=== PATIENT | female | born 1955 | race African-American/Black ===

== ENCOUNTER 2016-09-08 17:27 | Observation (INO) | payer MEDICARE, OTHER ==
--- NOTE | 2016-09-08 17:48 | ED ---
General Adult HPI - General Chief complaint: Chest Pain Stated complaint: chest pain Time Seen by Provider: 09/08/16 17:39 Source: patient, RN notes reviewed, old records reviewed Mode of arrival: wheelchair Limitations: no limitations - History of Present Illness Initial comments: This is a 61-year-old female ER for evaluation. Patient presents here for evaluation of chest pain. Patient has history of diabetes and thyroid disorder , prior history of chest pain. Patient recently going to stressful grief reaction secondary to Dr. canas. Patient denies shortness of breath, no cough or congestion, no diaphoresis no fevers. No recent cardiac testing, no modifying factors or pain. Patient states she was scheduled for an outpatient stress test secondary to test chest pain last week which she missed secondary to anxiety over having the tests. - Related Data Home Medications Medication Instructions Recorded Confirmed Albuterol Inhaler [Ventolin Hfa 1 - 2 puff INHALATION RT-Q6H PRN 09/08/16 Inhaler] Levothyroxine Sodium [Synthroid] 200 mcg PO DAILY 09/08/16 09/08/16 glyBURIDE [Diabeta] 5 mg PO BID 09/08/16 09/08/16 metFORMIN HCL 1,000 mg PO BID 09/08/16 09/08/16 Allergies Allergy/AdvReac Type Severity Reaction Status Date / Time Penicillins Allergy Nausea & Verified 09/08/16 18:40 Vomiting Review of Systems ROS Statement: Those systems with pertinent positive or pertinent negative responses have been documented in the HPI. ROS Other: All systems not noted in ROS Statement are negative. Past Medical History Past Medical History: Diabetes Mellitus, Thyroid Disorder Additional Past Medical History / Comment(s): prolonged QT interval History of Any Multi-Drug Resistant Organisms: None Reported Past Psychological History: No Psychological Hx Reported Smoking Status: Current every day smoker Past Alcohol Use History: None Reported Past Drug Use History: None Reported General Exam Limitations: no limitations General appearance: alert, in no apparent distress, anxious, obese Head exam: Present: atraumatic, normocephalic, normal inspection Eye exam: Present: normal appearance, PERRL, EOMI. Absent: scleral icterus, conjunctival injection, periorbital swelling ENT exam: Present: normal exam, mucous membranes moist Neck exam: Present: normal inspection. Absent: tenderness, meningismus, lymphadenopathy Respiratory exam: Present: normal lung sounds bilaterally. Absent: respiratory distress, wheezes, rales, rhonchi, stridor Cardiovascular Exam: Present: regular rate, normal rhythm, normal heart sounds. Absent: systolic murmur, diastolic murmur, rubs, gallop, clicks GI/Abdominal exam: Present: soft, normal bowel sounds. Absent: distended, tenderness, guarding, rebound, rigid Extremities exam: Present: normal inspection, full ROM, normal capillary refill. Absent: tenderness, pedal edema, joint swelling, calf tenderness Back exam: Present: normal inspection Neurological exam: Present: alert, oriented X3, CN II-XII intact Psychiatric exam: Present: normal affect, normal mood Skin exam: Present: warm, dry, intact, normal color. Absent: rash Course Vital Signs 09/08/16 09/08/16 09/08/16 17:33 18:03 18:10 Temperature 98.2 F Pulse Rate 87 86 Pulse Rate [ 94 Bilateral Radial] Respiratory 20 14 Rate Blood Pressure 137/85 142/73 O2 Sat by Pulse 97 100 Oximetry 09/08/16 18:57 Temperature 97.9 F Pulse Rate 82 Pulse Rate [ Bilateral Radial] Respiratory 15 Rate Blood Pressure 132/69 O2 Sat by Pulse 100 Oximetry - Reevaluation(s) Reevaluation #1: 09/08/16 19:29 Patient resting comfortably at this time EKG Findings - EKG Comments: EKG Findings:: EKG shows normal sinus rhythm rate of 93, TN 186 QRS 90, QTc 474 Medical Decision Making - Medical Decision Making 61 female ER for evaluation of chest pain, patient having episodic chest pain, history of hypertension, patient be admitted for cardiac observation initial EKG and troponin are negative, will place patient on anticoagulation of cardiac evaluation, patient requesting Dr. Narvaez - Lab Data Result diagrams: 09/08/16 18:12 09/08/16 18:12 Lab Results 09/08/16 09/08/16 09/08/16 Range/Units 18:12 18:12 18:12 WBC 8.2 (3.8-10.6) k/uL RBC 4.34 (3.80-5.40) m/uL Hgb 11.9 (11.4-16.0) gm/dL Hct 37.5 (34.0-46.0) % MCV 86.4 (80.0-100.0) fL MCH 27.4 (25.0-35.0) pg MCHC 31.8 (31.0-37.0) g/dL RDW 15.6 H (11.5-15.5) % Plt Count 351 (150-450) k/uL Neutrophils % 49 % Lymphocytes % 39 % Monocytes % 5 % Eosinophils % 4 % Basophils % 0 % Neutrophils # 4.0 (1.3-7.7) k/uL Lymphocytes # 3.2 (1.0-4.8) k/uL Monocytes # 0.4 (0-1.0) k/uL Eosinophils # 0.3 (0-0.7) k/uL Basophils # 0.0 (0-0.2) k/uL PT (9.0-12.0) sec INR (<1.1) APTT (22.0-30.0) sec Sodium 137 (137-145) mmol/L Potassium 4.4 (3.5-5.1) mmol/L Chloride 102 (98-107) mmol/L Carbon Dioxide 28 (22-30) mmol/L Anion Gap 7 mmol/L BUN 11 (7-17) mg/dL Creatinine 0.89 (0.52-1.04) mg/dL Est GFR (MDRD) Af Amer >60 (>60 ml/min/1.73 sqM) Est GFR (MDRD) Non-Af >60 (>60 ml/min/1.73 sqM) Glucose 152 H (74-99) mg/dL Calcium 8.6 (8.4-10.2) mg/dL Magnesium 2.1 (1.6-2.3) mg/dL Total Bilirubin 0.3 (0.2-1.3) mg/dL AST 42 H (14-36) U/L ALT 43 (9-52) U/L Alkaline Phosphatase 125 (38-126) U/L Total Creatine Kinase 88 (30-135) U/L CK-MB (CK-2) 0.6 (0.0-2.4) ng/mL CK-MB (CK-2) Rel Index 0.7 Troponin I <0.012 (0.000-0.034) ng/mL Total Protein 7.0 (6.3-8.2) g/dL Albumin 3.5 (3.5-5.0) g/dL Lipase 110 (23-300) U/L 09/08/16 Range/Units 18:12 WBC (3.8-10.6) k/uL RBC (3.80-5.40) m/uL Hgb (11.4-16.0) gm/dL Hct (34.0-46.0) % MCV (80.0-100.0) fL MCH (25.0-35.0) pg MCHC (31.0-37.0) g/dL RDW (11.5-15.5) % Plt Count (150-450) k/uL Neutrophils % % Lymphocytes % % Monocytes % % Eosinophils % % Basophils % % Neutrophils # (1.3-7.7) k/uL Lymphocytes # (1.0-4.8) k/uL Monocytes # (0-1.0) k/uL Eosinophils # (0-0.7) k/uL Basophils # (0-0.2) k/uL PT 10.0 (9.0-12.0) sec INR 1.0 (<1.1) APTT 25.0 (22.0-30.0) sec Sodium (137-145) mmol/L Potassium (3.5-5.1) mmol/L Chloride (98-107) mmol/L Carbon Dioxide (22-30) mmol/L Anion Gap mmol/L BUN (7-17) mg/dL Creatinine (0.52-1.04) mg/dL Est GFR (MDRD) Af Amer (>60 ml/min/1.73 sqM) Est GFR (MDRD) Non-Af (>60 ml/min/1.73 sqM) Glucose (74-99) mg/dL Calcium (8.4-10.2) mg/dL Magnesium (1.6-2.3) mg/dL Total Bilirubin (0.2-1.3) mg/dL AST (14-36) U/L ALT (9-52) U/L Alkaline Phosphatase (38-126) U/L Total Creatine Kinase (30-135) U/L CK-MB (CK-2) (0.0-2.4) ng/mL CK-MB (CK-2) Rel Index Troponin I (0.000-0.034) ng/mL Total Protein (6.3-8.2) g/dL Albumin (3.5-5.0) g/dL Lipase (23-300) U/L - Radiology Data Radiology results: report reviewed (Chest x-ray negative for acute disease), image reviewed Critical Care Time Critical Care Time: Yes Total Critical Care Time: 31 Disposition Clinical Impression: Chest pain Disposition: ADMITTED IP TO THIS [facility] Condition: Undetermined Instructions: Chest Pain (ED) Referrals: Amaya Driver MD [Primary Care Provider] - 1-2 days
[2016-09-08 18:20] LABS: Basophils % (A) 0 %; CH 27.7; CHCM 32.2; Eosinophils # (A) 0.3 k/uL (0-0.7); Eosinophils % (A) 4 %; HCT 37.5 % (34.0-46.0); HDW 2.65; HGB 11.9 gm/dL (11.4-16.0); Luc # (Auto) 0.22; Luc % (Auto) 3; Lymphocytes # (A) 3.2 k/uL (1.0-4.8); Lymphocytes % (A) 39 %; MCH 27.4 pg (25.0-35.0); MCHC 31.8 g/dL (31.0-37.0); MCV 86.4 fL (80.0-100.0); Monocytes # (A) 0.4 k/uL (0-1.0); Monocytes % (A) 5 %; Neutrophils % (A) 49 %; RBC 4.34 m/uL (3.80-5.40); RDW 15.6 % (11.5-15.5); WBC 8.2 k/uL (3.8-10.6); WBC (Perox) 8.16
[2016-09-08 18:36] LABS: ALT 43 U/L (9-52); AST 42 U/L (14-36); Alkaline Phosphatase 125 U/L (38-126); Anion Gap 7 mmol/L; Blood Urea Nitrogen 11 mg/dL (7-17); Calcium 8.6 mg/dL (8.4-10.2); Carbon Dioxide 28 mmol/L (22-30); Chloride 102 mmol/L (98-107); Glucose 152 mg/dL (74-99); Magnesium 2.1 mg/dL (1.6-2.3); Non-African American GFR(MDRD) >60 (>60 ml/min/1.73 sqM); Potassium 4.4 mmol/L (3.5-5.1); Sodium 137 mmol/L (137-145); Total Bilirubin 0.3 mg/dL (0.2-1.3)
[2016-09-08 18:40] LABS: Creatine Kinase 88 U/L (30-135)
[2016-09-08 18:53] LABS: Creatine Kinase MB 0.6 ng/mL (0.0-2.4); Troponin I <0.012 ng/mL (0.000-0.034)
[2016-09-08] MEDS ORDERED: HEPARIN SODIUM,PORCINE 5,000 UNIT/ML 1 ML VIAL IV ONE (19:26)
[2016-09-08] MEDS ORDERED: HEPARIN SODIUM,PORCINE 5,000 UNIT/ML 1 ML VIAL IV PRN (19:26)
[2016-09-08] MEDS ORDERED: ASPIRIN 81 MG CHEW PO STA (19:26)
[2016-09-08] MEDS ORDERED: NITROGLYCERIN SL TABS 0.4 MG TAB SUBLINGUAL PRN (19:26)
[2016-09-08] MEDS ORDERED: HEPARIN SODIUM,PORCINE/D5W PMX 25,000 UNIT in DEXTROSE/WATER 1 500ML.BAG IV SCH (19:30)
[2016-09-08] MEDS ORDERED: SODIUM CHLORIDE 0.9% 1,000 ML IV SCH (19:30)
--- NOTE | 2016-09-08 19:34 | XR ---
EXAMINATION TYPE: XR chest 2V DATE OF EXAM: 09/08/2016 6:25 PM COMPARISON: 08/15/2013 HISTORY: Pain TECHNIQUE: Frontal and lateral views of the chest are obtained. FINDINGS: There is moderate-marked obscuration of the pulmonary vasculature bilaterally due to a fin e reticular pattern of increased density throughout the lung parenchyma. The pattern is consistent wi th advanced interstitial phase pulmonary edema. The cardiac silhouette size is top normal. No berkley lung consolidation. No abnormal gas collections. Bones and soft tissues are unremarkable. IMPRESSION: MODERATE MARKED INTERSTITIAL PHASE PULMONARY EDEMA.
[2016-09-08 21:25] LABS: Glucose,Whole Blood 128 mg/dL (75-99)
[2016-09-08] MEDS: metFORMIN 500 MG TAB PO SCH (22:14)
[2016-09-08] MEDS: NICOTINE 21MG/24HR PATCH TRANSDERM SCH (22:14)
[2016-09-09 01:47] LABS: Creatine Kinase 73 U/L (30-135)
[2016-09-09 02:00] LABS: Creatine Kinase MB 0.5 ng/mL (0.0-2.4); Troponin I <0.012 ng/mL (0.000-0.034)
[2016-09-09 05:50] LABS: Glucose,Whole Blood 106 mg/dL (75-99)
[2016-09-09] MEDS ORDERED: LEVOTHYROXINE 100 MCG TAB PO SCH (06:30)
[2016-09-09] MEDS: glipiZIDE 10 MG TAB PO SCH ×2 (06:34→17:07)
[2016-09-09 06:39] LABS: Mean Platelet Volume 6.8
[2016-09-09 06:57] LABS: Cholesterol 136 mg/dL (<200); HDL Cholesterol 33 mg/dL (40-60); Triglycerides 103 mg/dL (<150)
[2016-09-09 06:58] LABS: Creatine Kinase 77 U/L (30-135)
[2016-09-09 07:12] LABS: Creatine Kinase MB 0.4 ng/mL (0.0-2.4); Troponin I <0.012 ng/mL (0.000-0.034)
--- NOTE | 2016-09-09 08:36 | P.CRDCN ---
History of Present Illness Consult date: 09/09/16 Requesting physician: Gilberto Kunz Consult reason: chest pain Chief complaint: Chest pain History of present illness: This is a 61-year-old -[place] female with known history of diabetes, hypothyroidism, asthma, nicotine dependence, patient smokes up to 3 packs of cigarettes per day, obesity, she presents to the hospital with symptoms of chest pain. She describes the pain as a sharp stabbing pain in the left side of her chest, she states she also feels pain up the left side of her neck into her jaw, and down her left arm. When she gets these episodes of pain she states they only last seconds and then dissipate. She denies any chest pressure or heaviness, no shortness of breath or palpitations. He states that when she gets the pain feels like a jittery feeling in her chest. Patient does follow with Dr. Soriano in the office, states that she has a family history of long QT syndrome. She recently lost her sister and has been under a lot of stress. EKG on arrival here showed a normal sinus rhythm with incomplete right bundle branch block pattern, no acute changes noted. Repeat EKG performed this morning shows a normal sinus rhythm. Chest x-ray reveals moderate marked interstitial pulmonary edema. Laboratory data was reviewed, CBC normal, potassium 4.4, BUN 11, creatinine 0.8. Troponins have been negative 3. Magnesium level II.1. Cholesterol 136, HDL 33, LDL 82, triglycerides 103. According to the patient, she states that she has had a stress test several years ago, was recently scheduled for one however missed it because of her sister's recent . The pressure on arrival here 136/8097% on room air, heart rate in the 80s. At the time of my examination this morning, patient denies any chest pain Past Medical History Past Medical History: Chest Pain / Angina, Diabetes Mellitus, Thyroid Disorder Additional Past Medical History / Comment(s): prolonged QT interval History of Any Multi-Drug Resistant Organisms: None Reported Additional Past Surgical History / Comment(s): none Past Anesthesia/Blood Transfusion Reactions: No Reported Reaction Past Psychological History: No Psychological Hx Reported Smoking Status: Current every day smoker Past Alcohol Use History: None Reported Past Drug Use History: None Reported - Past Family History Sister(s) Family Medical History: Myocardial Infarction (MD) Father Family Medical History: Cancer Additional Family Medical History / Comment(s): father of lung cancer Mother Family Medical History: Cancer Additional Family Medical History / Comment(s): mother from breast cancer Daughter(s) Additional Family Medical History / Comment(s): daughter from SIDS Medications and Allergies Home Medications Medication Instructions Recorded Confirmed Type Albuterol Inhaler [Ventolin Hfa 1 - 2 puff INHALATION RT-Q6H PRN 09/08/16 History Inhaler] Levothyroxine Sodium [Synthroid] 200 mcg PO DAILY 09/08/16 09/08/16 History glyBURIDE [Diabeta] 5 mg PO BID 09/08/16 09/08/16 History metFORMIN HCL 1,000 mg PO BID 09/08/16 09/08/16 History Allergies Allergy/AdvReac Type Severity Reaction Status Date / Time Penicillins Allergy Nausea & Verified 09/08/16 21:15 Vomiting Physical Exam Vitals: Vital Signs Temp Pulse Pulse Resp BP BP Pulse Ox 09/09/16 04:00 85 17 94/55 97 09/09/16 00:00 98.1 F 86 16 112/64 96 09/08/16 20:46 97.8 F 80 16 133/84 99 09/08/16 19:49 97.5 F L 75 16 130/77 100 Intake and Output 09/08/16 09/09/16 09/09/16 22:59 06:59 14:59 Intake Total 410 Output Total 400 Balance 10 Intake: IV 240 Heparin Sodium,Porcine/ 120 D5w Pmx 25,000 unit In Dextrose/Water 1 500ml. bag @ 5.959 UNITS/KG/HR 20 mls/hr IV .Q24H [facility] Rx #:[id number] Sodium Chloride 0.9% 1, 120 000 ml @ 20 mls/hr IV . Q24H [facility] Rx#:[id number] Intake, IV Titration 170 Amount Heparin Sodium,Porcine/ 170 D5w Pmx 25,000 unit In Dextrose/Water 1 500ml. bag @ 5.959 UNITS/KG/HR 20 mls/hr IV .Q24H [facility] Rx #:[id number] Output: Urine 400 Other: Voiding Method Toilet # Voids 1 1 # Bowel Movements 1 Weight 160.6 kg PHYSICAL EXAMINATION: HEENT: Head is atraumatic, normocephalic. Pupils equal, round. Neck is supple. There is no elevated jugular venous pressure. HEART EXAMINATION: Heart S1, S2 normal. No murmur or gallop heard. CHEST EXAMINATION: Lungs are clear to auscultation and precussion. No chest wall tenderness is noted on palpation or with deep breathing. ABDOMEN: Soft, obese, nontender. Bowel sounds are heard. No organomegaly noted. EXTREMITIES: 2+ peripheral pulses with trace evidence of peripheral edema and no calf tenderness noted. NEUROLOGIC patient is awake, alert and oriented -3. . Results 09/09/16 06:24 09/08/16 18:12 Cardiac Enzymes 09/09/16 09/09/16 Range/Units 01:10 06:24 CK-MB (CK-2) 0.5 0.4 (0.0-2.4) ng/mL Troponin I <0.012 <0.012 (0.000-0.034) ng/mL Coagulation 09/09/16 Range/Units 01:10 APTT 26.3 (22.0-30.0) sec Lipids 09/09/16 Range/Units 06:24 Triglycerides 103 (<150) mg/dL Cholesterol 136 (<200) mg/dL HDL Cholesterol 33 L (40-60) mg/dL CBC 09/09/16 Range/Units 06:24 Plt Count 321 (150-450) k/uL Current Medications Generic Name Dose Route Start Last Admin Trade Name Freq PRN Reason Stop Dose Admin Aspirin 325 mg 09/09/16 09:00 Aspirin PO DAILY [facility] Atorvastatin Calcium 80 mg 09/09/16 09:00 Lipitor PO DAILY [facility] Glipizide 10 mg 09/09/16 07:30 09/09/16 06:34 Glucotrol PO 10 mg AC-BID [facility] Administration Heparin Sodium (Porcine) 0 unit 09/08/16 19:26 09/09/16 04:16 Heparin IV 4,000 unit Q6HR PRN Administration Low PTT Protocol Heparin Sodium/Dextrose 25,000 500 mls @ 20 mls/hr 09/08/16 19:30 09/09/16 04 :16 unit/ IV Solution IV 8.95 units/kg/hr .Q24H [facility] 30.04 mls/hr Protocol Titration 5.959 UNITS/KG/HR Sodium Chloride 1,000 mls @ 20 mls/hr 09/08/16 19:30 09/08/16 19:42 Saline 0.9% IV 20 mls/hr .Q24H [facility] Administration Levothyroxine Sodium 200 mcg 09/09/16 06:30 09/09/16 06:34 Synthroid PO 200 mcg 0630 [facility] Administration Metformin HCl 1,000 mg 09/08/16 22:00 09/08/16 22:14 Glucophage PO 1,000 mg BID [facility] Administration Nicotine 1 patch 09/08/16 22:00 09/08/16 22:14 Habitrol 21mg/24hr Patch TRANSDERM 1 patch DAILY [facility] Administration Nitroglycerin 0.4 mg 09/08/16 19:26 Nitrostat SUBLINGUAL Q5M PRN Chest Pain Intake and Output 09/08/16 09/09/16 09/09/16 22:59 06:59 14:59 Intake Total 410 Output Total 400 Balance 10 Intake: IV 240 Heparin Sodium,Porcine/ 120 D5w Pmx 25,000 unit In Dextrose/Water 1 500ml. bag @ 5.959 UNITS/KG/HR 20 mls/hr IV .Q24H [facility] Rx #:[id number] Sodium Chloride 0.9% 1, 120 000 ml @ 20 mls/hr IV . Q24H [facility] Rx#:[id number] Intake, IV Titration 170 Amount Heparin Sodium,Porcine/ 170 D5w Pmx 25,000 unit In Dextrose/Water 1 500ml. bag @ 5.959 UNITS/KG/HR 20 mls/hr IV .Q24H [facility] Rx #:[id number] Output: Urine 400 Other: Voiding Method Toilet # Voids 1 1 # Bowel Movements 1 Weight 160.6 kg 09/09/16 06:24 EKG Interpretations (text) EKG shows normal sinus rhythm with no acute changes. Assessment and Plan Plan: Assessment and plan #1 chest pain, atypical in nature. Troponins negative 3. EKG shows normal sinus rhythm with no acute changes. #2 diabetes #3 hypothyroidism #4 family history of long QT syndrome #5 nicotine dependence, patient smokes 3 packs of cigarettes per day #6 asthma Plan We will obtain an echocardiogram with Doppler study. We will also discontinue the patient's heparin, decrease aspirin to 81 mg daily. Patient is been advised to undergo stress testing to rule out any underlying coronary artery disease . Further recommendations will follow. DNP note has been reviewed, I agree with a documented findings and plan of care. Patient was seen and examined.
[2016-09-09] MEDS ORDERED: ASPIRIN 81 MG CHEW PO SCH (09:00)
[2016-09-09] MEDS ORDERED: ATORVASTATIN 80 MG TAB PO SCH (09:00)
[2016-09-09] MEDS ORDERED: ASPIRIN 325 MG TAB PO SCH (09:00)
[2016-09-09] MEDS ORDERED: DOBUTamine DRIP for NUC MED 500 MG in DEXTROSE/WATER 1 250ML.BAG IV ONE (09:24)
--- NOTE | 2016-09-09 09:28 | P.PN ---
Progress Note - Text This is an addendum to the dictated cardiology consultation. The patient has a history of diabetes, chronic tobacco use, smokes 3 packs a day and a family history of long QT syndrome who presents with symptoms of chest discomfort. Her discomfort is not exertional pattern, random. She has no prior history of documented obstructive CAD and her prior stress test was normal. Patient is not very active physically. She denies any dizziness or palpitation or syncope. Her cardiac enzymes are unremarkable and her EKG is normal. Her chest discomfort has atypical features for CAD. I will stop her heparin and proceed with a dobutamine stress echocardiogram, if there is no evidence of inducible ischemia then no further cardiac workup will be needed. The importance of smoking cessation was discussed with the patient. Thank you for this consult we will follow with you.
[2016-09-09] MEDS ORDERED: ATORVASTATIN 20 MG TAB PO SCH (09:30)
[2016-09-09 10:34] VITALS: RESP 20
--- NOTE | 2016-09-09 12:40 | ECHOF ---
Referral Reason:chest pain MEASUREMENTS -------- HEIGHT: 177.8 cm WEIGHT: 160.6 kg BP: 94/55 RVIDd: 3.1 cm (< 3.3) IVSd: 1.3 cm (0.6 - 1.1) LVIDd: 4.1 cm (3.9 - 5.3) LVPWd: 1.3 cm (0.6 - 1.1) IVSs: 2.1 cm LVIDs: 3.0 cm LVPWs: 1.5 cm LA Diam: 3.0 cm (2.7 - 3.8) LAESV Index (A-L): 20.01 ml/m Ao Diam: 2.7 cm (2.0 - 3.7) AV Cusp: 1.9 cm (1.5 - 2.6) LA Diam: 3.3 cm (2.7 - 3.8) MV EXCURSION: 11.453 mm (> 18.000) MV EF SLOPE: 46 mm/s (70 - 150) EPSS: 0.6 cm MV E Juan: 0.62 m/s MV DecT: 188 ms MV A Juan: 0.75 m/s MV E/A Ratio: 0.83 RAP: 5.00 mmHg RVSP: 21.41 mmHg FINDINGS -------- Sinus rhythm with extra systolic beats. This was a technically adequate study. There is mild concentric left ventricular hypertrophy. Overall left ventricular systolic function is normal with, an EF between 55 - 60 %. The right ventricle is normal in size. Normal LA size by volume 22+/-6 ml/m2. The right atrium is normal in size. The aortic valve is trileaflet and appears structurally normal. Mild mitral annular calcification present. There is trace mitral regurgitation. Trace tricuspid regurgitation present. Right ventricular systolic pressure is normal at < 35 mmHg. Trace/mild (physiologic) pulmonic regurgitation. The aortic root size is normal. The inferior vena cava is mildly dilated. Echo free space may represent effusion or a pericardial fat pad. CONCLUSIONS -------- 1. Sinus rhythm with extra systolic beats. 2. There is trace mitral regurgitation. 3. Trace tricuspid regurgitation present. 4. Right ventricular systolic pressure is normal at < 35 mmHg. 5. Trace/mild (physiologic) pulmonic regurgitation. 6. The aortic root size is normal. 7. The inferior vena cava is mildly dilated. 8. Echo free space may represent effusion or a pericardial fat pad. 9. This was a technically adequate study. 10. There is mild concentric left ventricular hypertrophy. 11. Overall left ventricular systolic function is normal with, an EF between 55 - 60 %. 12. The right ventricle is normal in size. 13. Normal LA size by volume 22+/-6 ml/m2. 14. The right atrium is normal in size. 15. The aortic valve is trileaflet and appears structurally normal. 16. Mild mitral annular calcification present. ASSISTANT DIRECTOR OF [employer]ID[employer] LIFE: Georges Gu RDCS
[2016-09-09 12:47] LABS: Glucose,Whole Blood 74 mg/dL (75-99)
[2016-09-09] MEDS: NICOTINE 21MG/24HR PATCH TRANSDERM SCH (12:51)
[2016-09-09] MEDS: metFORMIN 500 MG TAB PO SCH ×2 (12:52→17:07)
[2016-09-09] MEDS ORDERED: ENOXAPARIN 40 MG/0.4 ML SYRINGE SQ SCH (13:15)
--- NOTE | 2016-09-09 14:44 | ECHOS ---
DATE OF SERVICE: 09/09/2016 AGE: 61Y SEX: F HT: 70" WT: 354 lbs. Protocol Trey: Others: Dobutamine Stress Echo Stage: 3 Dur. of Exercise: 9:00 *Heart Rate Blood Pressure *Rest: 93 Rest: 139/75 * *Max. Achieved: 146 Maximum BP: 178/65 85% PMHR: 137 100% PMHR: 161 *METS: - INDICATIONS: Chest pain. MEDICATIONS: Metformin, levothyroxine, glyburide, albuterol. Patient was given dobutamine infusion according to the ( ) protocol. Peak heart rate of 146 was achieved. Maximum blood pressure of 178/65 mmHg was noted. Resting EKG shows normal sinus rhythm with normal WI interval and QRS duration and normal ST-T waves. Intermittent PVCs and PACs were noted. No ST-segment depression suggestive of ischemia is noted. The baseline echocardiographic images reveal a normal left ventricular chamber size with normal left ventricular systolic function. At the peak dose of dobutamine infusion, normal increase in the wall thickness and contractility is noted. FINAL IMPRESSION: This dobutamine stress echocardiographic study is negative for stress-induced ischemia. Occasional premature atrial contractions and premature ventricular contractions were noted. EKG portion of the stress test is not suggestive of ischemia.
[2016-09-09 15:34] VITALS: BP 95/55; PULSE 72; TEMP 97.1
[2016-09-09 17:10] LABS: Glucose,Whole Blood 75 mg/dL (75-99)
--- NOTE | 2016-09-09 17:24 | HP ---
DATE OF ADMISSION: 09/08/2016 PRESENTING COMPLAINT: Chest pain. HISTORY OF PRESENTING COMPLAINT: This is a 61-year-old patient of Dr. Megan Driver whose chronic stable conditions include diabetes mellitus, type 2, hypothyroid and smoking. Patient around 11:00 developed left-sided chest pain going up the neck and arm, coming on and off; felt a little bit short of breath. No perspiration. No dizziness. No tiredness. Patient was admitted with unstable angina. No prior cardiac history. Patient smokes about 3 packs a day. REVIEW OF SYSTEMS: CONSTITUTIONAL: None. HEENT: None. RESPIRATORY: Occasional wheezing. CARDIOVASCULAR: As above. GASTROINTESTINAL: None. GENITOURINARY: None. MUSCULOSKELETAL: None. DERMATOLOGICAL: None. HEMATOLOGICAL: None. LYMPHATIC: None. PSYCHIATRY: None. NEUROLOGICAL: None. PAST MEDICAL HISTORY: 1. Diabetes mellitus, type 2. 2. Hypothyroid. PAST SURGICAL HISTORY: None. SOCIAL HISTORY: Lives with her children. Retired ( ). Smokes 3 packs a day. No alcohol. FAMILY HISTORY: Father of lung cancer. Also heart attack in the family. HOME MEDICATIONS: 1. Metformin 1000 mg b.i.d. 2. Glyburide 5 mg b.i.d. 3. Synthroid 200 mcg a day. 4. Ventolin 1 to 2 puffs q.6 p.r.n. ALLERGIES: PENICILLIN causing nausea, vomiting. On examination, temperature 98.2, pulse 87, respiration 20, blood pressure 137/85, pulse ox 97% on room air. GENERAL APPEARANCE: Obese; BMI of 50.8. Sitting up on the edge of the bed. EYES: Pupils equal. Conjunctivae normal. HEENT: Oral cavity normal. NECK: JVD not raised. Mass not palpable. RESPIRATORY: Effort normal. Lungs are clear. CARDIOVASCULAR: First and second sounds normal. No edema. ABDOMEN: Soft, nontender. Liver and spleen not palpable. LYMPHATIC: No lymph node palpable in neck or axillae. PSYCHIATRY: Alert and oriented x3. Mood and affect normal. NEUROLOGICAL: Pupils equal. Cranial nerves grossly intact. Power and sensation grossly intact. INVESTIGATIONS: White count 8.2, hemoglobin 11.9. Potassium 4.4. BUN and creatinine are normal. Troponins x3 negative. EKG: Normal sinus rhythm. ASSESSMENT: 1. Possible unstable angina. Patient's risk factors include smoking, diabetes, obesity. 2. Diabetes mellitus, type 2. 3. Morbid obesity; BMI of 50.8. 4. Chronic nicotine dependence. Patient is a cigarette smoker. 5. Emphysema in a smoker. PLAN: Patient's home medications are resumed. Patient was put on aspirin. Will probably need a stress test. Patient was advised against smoking.
--- NOTE | 2016-09-10 09:00 | DS ---
DATE OF ADMISSION: 09/08/2016 DATE OF DISCHARGE: 09/09/2016 FINAL DIAGNOSES: 1. Anterior chest wall pain, could be musculoskeletal. 2. Diabetes mellitus type 2 on oral hypoglycemic. 3. Morbid obesity, body mass index 50.8. 4. Chronic nicotine dependence. Patient is a smoker. 5. Emphysema in a smoker. HOSPITAL COURSE: This patient presented with chest pain. Troponins are negative. Underwent a stress test, dobutamine stress echocardiogram, that was negative. A 2-D echocardiogram was unremarkable. Patient's LDL was 92. Patient was counseled against smoking. ON EXAM: LUNGS: Decreased breath sounds. CARDIOVASCULAR: First and second sounds normal. DISCHARGE MEDICATIONS: 1. Ventolin HFA 1 to 2 puffs q.6 p.r.n. 2. Synthroid 200 mcg p.o. daily. 3. Glyburide 5 mg p.o. b.i.d. 4. Metformin 1000 mg p.o. b.i.d. 5. Aspirin 81 mg daily. 6. Lipitor 20 mg p.o. daily. 7. Nicotine patch as expected. Follow up with Dr. Driver in 3 days. CONSULTATION: Dr. Sullivan.
== END 2016-09-09 17:34 | disposition home or self-care (01) ==
LOC: EC 17:27 → 6SEL 19:26
PROVIDERS: ADMIT Hospitalist; ATTEND Hospitalist
DX: R07.89 Other chest pain (principal); M79.602 Pain in left arm; M54.2 Cervicalgia; E11.9 Type 2 diabetes mellitus without complications; E66.01 Morbid (severe) obesity due to excess calories; Z68.43 Body mass index [BMI] 50.0-59.9, adult; J45.909 Unspecified asthma, uncomplicated; J43.9 Emphysema, unspecified; E03.9 Hypothyroidism, unspecified; F17.210 Nicotine dependence, cigarettes, uncomplicated; Z79.899 Other long term (current) drug therapy; Z79.84 Long term (current) use of oral hypoglycemic drugs; Z88.0 Allergy status to penicillin; Z82.49 Family history of ischemic heart disease and other diseases of the circulatory system; Z80.1 Family history of malignant neoplasm of trachea, bronchus and lung
CPT/HCPCS: 96366 ×2; 96376 ×2; 93005 ×2; 96365; 99291; 36415; 93017; 93306; 80061; 80053; 82550 ×2; 82553 ×2; 83690; 83735; 84484 ×2; 85025; 85049; 85610; 85730 ×2; 71020; G0378 ×2; C8928; S4990 ×2; J1250; J1644 ×3; Q9957; 93350

== ENCOUNTER 2016-09-27 12:53 | Day surgery (SDC) | payer MEDICARE, OTHER ==
[~2016-09-27 12:53] MED LIST: SODIUM CHLORIDE 0.9% 1,000 ML IV SCH
[2016-09-27 13:46] LABS: Glucose,Whole Blood 76 mg/dL (75-99)
[2016-09-27] MEDS ORDERED: METOPROLOL TARTRATE 5 MG/5 ML VIAL IVP ONE ×2 (14:15→16:08)
[2016-09-27] MEDS ORDERED: MIDAZOLAM 2 MG/2 ML VIAL ONE (14:15)
[2016-09-27] MEDS ORDERED: PROPOFOL 10 MG/ML 20 ML VIAL IV ONE (14:15)
[2016-09-27] MEDS ORDERED: ALBUTEROL INHALER 60 PUFF/8 GM INHALER INHALATION ONE (14:15)
[2016-09-27] MEDS ORDERED: hydrALAZINE HCL 20 MG/ML 1 ML VIAL ONE (14:15)
[2016-09-27] MEDS ORDERED: diphenhydrAMINE 50 MG/ML 1 ML VIAL ONE (14:15)
[2016-09-27] MEDS ORDERED: IV FLUID CONTINUATION 300 ML IV ONE (14:15)
[2016-09-27] MEDS ORDERED: fentaNYL (PF) 50 MCG/ML 2 ML AMP ONE (14:15)
[2016-09-27] MEDS ORDERED: ePHEDrine 50 MG/ML 1 ML AMP ONE (14:15)
[2016-09-27] MEDS ORDERED: HYDROmorphone (PF) 1 MG/ML ONE (14:15)
[2016-09-27] MEDS ORDERED: GLYCOPYRROLATE 0.2 MG/ML 2 ML VIAL ONE (14:15)
[2016-09-27] MEDS ORDERED: ISOPROTERENOL 250 MCG/1.25 ML SYR IV ONE (14:15)
[2016-09-27] MEDS ORDERED: LIDOCAINE 2% INJ 20 MG/ML SQ ONE (15:02)
[2016-09-27] MEDS: EPINEPHrine 2 MG in DEXTROSE 5% IN WATER 250 ML IV SCH ×4 (16:25→16:26)
[2016-09-27] MEDS ORDERED: SODIUM CHLORIDE 0.9% 1,000 ML IV ONE (16:54)
[2016-09-27 17:41] LABS: Glucose,Whole Blood 83 mg/dL (75-99)
--- NOTE | 2016-09-27 17:41 | P.PCN ---
Preoperative Diagnosis: Epinephrine stress test report At the end of the EP study, and epinephrine stress test was performed per protocol starting at 0.025 g per KG per minute and increasing the dose in a stepwise fashion up to 0.2 g per KG per minute Baseline QT interval was variable and ranged from 368-400 ms At baseline, there was no post-pause prolongation of the QT interval There was a steady and progressive decline in the absolute QT interval as the dose of epinephrine was increased to the maximum dose The post was absolute QT interval also showed shortening There was a subtle notching seen intermittently No evidence for any T-wave alternans PVCs nonsustained ventricular tachycardia or polymorphic VT Impression Shortening of the QT interval during epinephrine stress testing
[2016-09-27] MEDS ORDERED: NICOTINE 21MG/24HR PATCH TRANSDERM PRN (17:42)
[2016-09-27] MEDS ORDERED: ACETAMINOPHEN IV (For NPO) 1,000 MG/100 ML VIAL IVPB ONE (17:56)
[2016-09-27] MEDS ORDERED: ACETAMINOPHEN IV (For NPO) 1,000 MG in EMPTY BAG 1 BAG IVPB ONE (18:00)
[2016-09-27 18:33] VITALS: BMI 49.6
--- NOTE | 2016-09-27 18:41 | CE ---
DATE OF SERVICE: Ne Saenz is a 61-year-old female who has recurrent palpitations and has a family history of sudden in multiple female members and ( ) was very likely of long QT syndrome. She underwent a diagnostic EP study followed by epinephrine stress testing. The epinephrine stress test has been dictated separately. Patient was brought to the EP lab in a fasting state. Written informed consent was obtained prior to the procedure. The right groin was prepped and draped as per protocol and 3 venous sheaths were placed in the right femoral vein. Via this, three diagnostic catheters were placed in the right (high right atrial catheter, His bundle catheter and RV catheter). Sinus cycle length 716 ms, IN interval 172 ms, QRS 108 ms, QT 453 ms, AH interval 100 ms, HV interval 43 ms. Sinus node recovery times at 600, five hundred and 400 ms were 901, 956 and 988 ms. AV node Wenckebach block 360 ms, VA Wenckebach block 550 ms, atrial ERP 600/280 ms, ventricular ERP 500/240 ms. Isuprel was then started and AV node Wenckebach block improved to 280 ms. No delta waves noted. VA block greater than 500 ms. Atrial extrastimulation was performed and atrial ERP was 400/210 ms, ventricular ERP 400/200 ms and 400/210/less than 190 ms. Isuprel was stopped. The patient's blood pressure was elevated on Isuprel and therefore IV hydralazine was given. Once her blood pressure normalized, epinephrine stress test was performed. This is being dictated separately. IMPRESSION: Diagnostic EP study revealing frequent premature ventricular contractions with right bundle branch block morphology (aberrancy) without induction of any Supraventricular tachycardia and absence of slow pathway and absence of VA conduction absence of any delta waves with atrial pacing. No atrial fibrillation induced. No ventricular arrhythmias induced.
--- NOTE | 2016-09-27 18:44 | LTR ---
September 27, 2016 RE: Ne Saenz Dear Dr. Driver: I had the pleasure of seeing Lis Saenz in electrophysiology follow-up. As you know many years back I had detected a mildly prolonged QT interval on Ne. Subsequently at that time I knew that her three month old baby had in her sleep many, many years back. Subsequently I also found that two of her nieces had suddenly upon hearing a loud startling sound. More recently her sister in her sleep. Lis has been complaining of palpitations and therefore I brought her in for an EP study. I could only find PACs with a right bundle branch block aberrancy but no inducible arrhythmias. Because of a very strong consideration for a long QT syndrome, particularly with a history of startling sounds, which triggered the sudden an epinephrine stress test was performed to look specifically for long QT 1 or long QT 2. The epinephrine stress test showed shortening of the QT interval, which is a normal response. The abnormal response is prolongation of the QT interval and we did not demonstrate this which is a good sign for Ne. However, she has multiple other family members and some of whom are symptomatic with recurrent dizzy spells and I have advised the family that those individuals should seek medical attention specifically geared towards evaluation for long QT syndrome. In addition, genetic autopsy on her sister's tissue should also be performed. I am starting Ne on Nadolol 20 mg p.o. daily and I will follow her QT interval in the future. Thank you for entrusting me in the care of your patient, Warm regards, Sincerely, EN CHRIS MD
[2016-09-27] MEDS: LACTATED RINGERS 1,000 ML IV SCH (19:38)
[2016-09-27] MEDS ORDERED: ONDANSETRON 4 MG/2 ML VIAL IVP PRN (19:43)
[2016-09-27] MEDS ORDERED: HYDROcodone/APAP 5-325MG 1 EACH TAB PO PRN (20:47)
[2016-09-27] MEDS: ACETAMINOPHEN TAB 325 MG TAB PO PRN (20:51)
[2016-09-27 21:22] LABS: Glucose,Whole Blood 170 mg/dL (75-99)
[2016-09-27] MEDS: metFORMIN 500 MG TAB PO SCH (21:32)
[2016-09-27] MEDS: glipiZIDE 10 MG TAB PO SCH (21:32)
[2016-09-27] MEDS: NADOLOL 20 MG TAB PO SCH (21:32)
[2016-09-27] MEDS ORDERED: ALBUTEROL NEBULIZED 2.5 MG/3 ML INHALATION PRN (23:25)
[2016-09-27] MEDS: ALBUTEROL NEBULIZED 2.5 MG/3 ML INHALATION PRN (23:59)
[2016-09-28] MEDS: ACETAMINOPHEN TAB 325 MG TAB PO PRN (05:08)
[2016-09-28] MEDS: LACTATED RINGERS 1,000 ML IV SCH (05:09)
[2016-09-28] MEDS ORDERED: LEVOTHYROXINE 100 MCG TAB PO SCH (06:30)
[2016-09-28 06:34] LABS: Glucose,Whole Blood 78 mg/dL (75-99)
[2016-09-28] MEDS: ALBUTEROL NEBULIZED 2.5 MG/3 ML INHALATION PRN (07:45)
[2016-09-28 08:20] LABS: Hemoglobin A1C 6.1 % (4.2-6.1)
[2016-09-28] MEDS: glipiZIDE 10 MG TAB PO SCH (08:54)
[2016-09-28] MEDS: metFORMIN 500 MG TAB PO SCH (08:55)
[2016-09-28] MEDS: NADOLOL 20 MG TAB PO SCH (08:55)
[2016-09-28 12:04] LABS: Glucose,Whole Blood 56 mg/dL (75-99)
[2016-09-28 12:46] LABS: Glucose,Whole Blood 73 mg/dL (75-99)
[2016-09-28 16:06] VITALS: BP 121/70; PULSE 73; RESP 16; TEMP 97.5
--- NOTE | 2016-09-28 19:39 | P.DS ---
Providers Attending physician: Min Soriano Primary care physician: Am[facility] Course: Patient is doing well from a cardiac standpoint. She is lying comfortably in bed at groin is healed well. She's been walking around in the hallways. No arrhythmias noted on telemetry. She tolerated nadolol 20 mg by mouth daily well. She is no chest discomfort no dizziness lightheadedness. She does have numbness on the thigh on the right side and this could be related to irritation of the femoral nerve. She also has diabetes On examination Blood pressure is 121/70 mmHg pulse rate in the 70s she's afebrile Heart sounds are normal normal S1 normal S2 Breath sounds are normal no rhonchi no crackles Groins of healed well no hematoma Peripheral pulses were palpable Impression Family history of sudden consistent with long QT syndrome History of mildly prolonged QT interval in the past Epinephrine stress test showed progressive shortening of the QT interval on epinephrine History of adult onset diabetes management PCP Morbid obesity BMI 49 Hypertension Suggest Nadolol 20 mg by mouth daily Workup of other family members for long QT syndrome Patient Condition at Discharge: Stable Plan - Discharge Summary Discharge Medication List RX: Albuterol Inhaler [Ventolin Hfa Inhaler] 1 - 2 puff INHALATION RT-Q6H PRN [History] RX: Levothyroxine Sodium [Synthroid] 200 mcg PO DAILY 09/08/16 [History] RX: glyBURIDE [Diabeta] 5 mg PO BID 09/08/16 [History] RX: metFORMIN HCL 1,000 mg PO BID 09/08/16 [History] RX: Nicotine 21Mg/24Hr Patch [Habitrol] 1 patch TRANSDERM DAILY PRN 09/24/16 [ History] Follow up Appointment(s)/Referral(s): Min Soriano MD [STAFF PHYSICIAN] - 12/08/16 4:30 pm (One week groin check appointment with Sandra Pulido. at 10:00 am. has been scheduled.) Patient Instructions/Handouts: Palpitations (GEN), Cardiac Ablation (DC) Discharge Disposition: HOME SELF-CARE
== END 2016-09-28 17:09 | disposition home or self-care (01) ==
LOC: CATHEP 12:53 → 3OBS 16:55 → CATHEP 09-28 17:09
PROVIDERS: ATTEND Internal Medicine Clinical Cardiac Electrophysiology
DX: I49.3 Ventricular premature depolarization (principal); I45.10 Unspecified right bundle-branch block; I10 Essential (primary) hypertension; R20.0 Anesthesia of skin; F17.210 Nicotine dependence, cigarettes, uncomplicated; E66.01 Morbid (severe) obesity due to excess calories; Z68.42 Body mass index [BMI] 45.0-49.9, adult; Z82.41 Family history of sudden cardiac death; E11.9 Type 2 diabetes mellitus without complications; Z79.84 Long term (current) use of oral hypoglycemic drugs; Z79.899 Other long term (current) drug therapy; Z88.0 Allergy status to penicillin
CPT/HCPCS: 94640 ×2; 93623; 93620; 83036; C1894; C1769 ×2; C1730 ×2; S4990; J2001; J0171; J2250; J0360; J1200; J2405; J3010; J1170; J0131; J2704

== ENCOUNTER 2017-04-19 11:39 | Emergency (ER) | payer MEDICARE, OTHER ==
[2017-04-19] MEDS ORDERED: IPRATROPIUM-ALBUTEROL 3 ML NEB INHALATION STA (13:13)
[2017-04-19] MEDS ORDERED: SODIUM CHLORIDE 0.9% 1,000 ML IV STA (13:13)
[2017-04-19] MEDS ORDERED: BENZONATATE 100 MG CAP PO STA (13:13)
[2017-04-19] MEDS ORDERED: PROMETHAZ-COD 6.25-10 MG/5 ML 5 ML CUP PO STA (13:16)
--- NOTE | 2017-04-19 13:16 | ED ---
General Adult HPI - General Chief complaint: Shortness of Breath Stated complaint: Difficulty Breathing Time Seen by Provider: 04/19/17 13:00 Source: patient, family, RN notes reviewed Mode of arrival: ambulatory - History of Present Illness Initial comments: 61-year-old female presents to the emergency department with a chief complaint of cough and shortness of breath. Patient does admit to history of asthma. Patient states that she has had this cough and shortness of breath for the last month or so. Patient states she's been on antibiotics steroids breathing she was at home and she just continues to have this cough. Patient denies any chest pain. She denies any shortness of breath. She states it felt irritated due to the continued cough. Patient was concerned because her symptoms just are not getting better so she thought that she should be seen. Patient denies any recent fever, chills, shortness of breath, chest pain, back pain, abdominal pain, nausea vomiting, numbness or tingling, dysuria or hematuria, constipation or diarrhea, headaches or visual changes, or any other current symptoms. - Related Data Home Medications Medication Instructions Recorded Confirmed Levothyroxine Sodium [Synthroid] 200 mcg PO DAILY 09/08/16 04/19/17 glyBURIDE [Diabeta] 5 mg PO BID 09/08/16 04/19/17 metFORMIN HCL 1,000 mg PO BID 09/08/16 04/19/17 Albuterol Sulfate [Proair Hfa] 2 puff INHALATION RT-Q6H PRN 04/19/17 04/19/17 Atorvastatin [Lipitor] 20 mg PO HS 04/19/17 04/19/17 Beclomethasone Dip 80 Mcg/Puff 1 puff INHALATION RT-BID 04/19/17 04/19/17 [Qvar 80 mcg] Ibuprofen [Ibuprofen] 800 mg PO TID PRN 04/19/17 04/19/17 Lisinopril [Zestril] 5 mg PO DAILY 04/19/17 04/19/17 Nadolol [Corgard] 20 mg PO DAILY 04/19/17 04/19/17 amLODIPine [Norvasc] 10 mg PO DAILY 04/19/17 04/19/17 Previous Rx's Medication Instructions Recorded Albuterol Nebulized [Ventolin 2.5 mg INHALATION Q4H #20 nebu 04/19/17 Nebulized] Promethaz-Cod 6.25-10 mg/5 ml 5 ml PO Q4HR PRN #50 ml 04/19/17 [Phenergan with Codeine] predniSONE 50 mg PO DAILY #5 tab 04/19/17 Allergies Allergy/AdvReac Type Severity Reaction Status Date / Time Latex, Natural Rubber Allergy Rash/Hives Verified 04/19/17 13:43 lactose AdvReac Diarrhea Verified 04/19/17 13:43 Penicillins AdvReac Nausea & Verified 04/19/17 13:43 Vomiting Review of Systems ROS Statement: Those systems with pertinent positive or pertinent negative responses have been documented in the HPI. ROS Other: All systems not noted in ROS Statement are negative. Past Medical History Past Medical History: Chest Pain / Angina, Diabetes Mellitus, Thyroid Disorder Additional Past Medical History / Comment(s): see DR Soriano H & P History of Any Multi-Drug Resistant Organisms: None Reported Additional Past Surgical History / Comment(s): Past Anesthesia/Blood Transfusion Reactions: Previous Problems w/ Anesthesia Additional Past Anesthesia/Blood Transfusion Reaction / Comment(s): difficulty waking up Past Psychological History: No Psychological Hx Reported Smoking Status: Current every day smoker Past Alcohol Use History: None Reported Past Drug Use History: None Reported - Past Family History Sister(s) Family Medical History: Myocardial Infarction ([place]) Father Family Medical History: Cancer Additional Family Medical History / Comment(s): father of lung cancer Mother Family Medical History: Cancer Additional Family Medical History / Comment(s): mother from breast cancer Daughter(s) Additional Family Medical History / Comment(s): daughter from SIDS General Exam - General Exam Comments Initial Comments: General: The patient is awake and alert, in no distress, and does not appear acutely ill. Eye: Pupils are equal, round and reactive to light, extra-ocular movements are intact; there is normal conjunctiva bilaterally. No signs of icterus. Ears, nose, mouth and throat: There are moist mucous membranes. Neck: The neck is supple, there is no tenderness. Cardiovascular: There is a regular rate and rhythm. No murmur, rub or gallop is appreciated. Respiratory: Lungs are clear to auscultation, respirations are non-labored, breath sounds are equal. No wheezes, stridor, rales, or rhonchi. Gastrointestinal: Soft, non-distended, non-tender abdomen without masses or organomegaly noted. There is no rebound or guarding present. No CVA tenderness. Bowel sounds are unremarkable. Back: There is no tenderness to palpation in the midline. There is no obvious deformity. No rashes noted. Musculoskeletal: Normal ROM, no tenderness, There is no pedal edema. There is no calf tenderness or swelling. Sensation intact. Pulses equal bilaterally 2+. Neurological: CN II-XII intact, There are no obvious motor or sensory deficits. Coordination appears grossly intact. Speech is normal. Skin: Skin is warm and dry and no rashes or lesions are noted. Psychiatric: Cooperative, appropriate mood & affect, normal judgment. Course Vital Signs 04/19/17 04/19/17 04/19/17 12:08 13:29 13:39 Temperature 98.2 F Pulse Rate 82 80 80 Respiratory 18 Rate Blood Pressure 113/59 O2 Sat by Pulse 98 Oximetry Medical Decision Making - Medical Decision Making 61-year-old female presents for chief complaint of cough.at this time patient's chest x-rays reviewed lab work and vital signs are stable. Phenergan with codeine did help. We discussed the patient most likely has acute bronchitis at this time. We will increase the patient steroids for home. We discussed continuing the breathing treatments we'll give her cough medication. We discussed comparison follow-up all patient's questions. She stated she understood and she is. She'll be discharged. - Lab Data Result diagrams: 04/19/17 13:38 04/19/17 13:38 Lab Results 04/19/17 04/19/17 04/19/17 Range/Units 13:38 13:38 13:38 WBC 7.3 (3.8-10.6) k/uL RBC 4.58 (3.80-5.40) m/uL Hgb 12.9 (11.4-16.0) gm/dL Hct 41.4 (34.0-46.0) % MCV 90.5 (80.0-100.0) fL MCH 28.2 (25.0-35.0) pg MCHC 31.2 (31.0-37.0) g/dL RDW 15.2 (11.5-15.5) % Plt Count 352 (150-450) k/uL Neutrophils % 47 % Lymphocytes % 41 % Monocytes % 4 % Eosinophils % 4 % Basophils % 1 % Neutrophils # 3.4 (1.3-7.7) k/uL Lymphocytes # 3.0 (1.0-4.8) k/uL Monocytes # 0.3 (0-1.0) k/uL Eosinophils # 0.3 (0-0.7) k/uL Basophils # 0.0 (0-0.2) k/uL Hypochromasia Slight PT (9.0-12.0) sec INR (<1.2) APTT (22.0-30.0) sec Sodium 138 (137-145) mmol/L Potassium 4.4 (3.5-5.1) mmol/L Chloride 105 (98-107) mmol/L Carbon Dioxide 24 (22-30) mmol/L Anion Gap 9 mmol/L BUN 12 (7-17) mg/dL Creatinine 0.90 (0.52-1.04) mg/dL Est GFR (MDRD) Af Amer >60 (>60 ml/min/1.73 sqM) Est GFR (MDRD) Non-Af >60 (>60 ml/min/1.73 sqM) Glucose 101 H (74-99) mg/dL Plasma Lactic Acid Asim 1.3 (0.7-2.0) mmol/L Calcium 9.6 (8.4-10.2) mg/dL Total Bilirubin 0.2 (0.2-1.3) mg/dL AST 29 (14-36) U/L ALT 38 (9-52) U/L Alkaline Phosphatase 141 H (38-126) U/L Total Protein 6.6 (6.3-8.2) g/dL Albumin 3.5 (3.5-5.0) g/dL 04/19/17 Range/Units 13:38 WBC (3.8-10.6) k/uL RBC (3.80-5.40) m/uL Hgb (11.4-16.0) gm/dL Hct (34.0-46.0) % MCV (80.0-100.0) fL MCH (25.0-35.0) pg MCHC (31.0-37.0) g/dL RDW (11.5-15.5) % Plt Count (150-450) k/uL Neutrophils % % Lymphocytes % % Monocytes % % Eosinophils % % Basophils % % Neutrophils # (1.3-7.7) k/uL Lymphocytes # (1.0-4.8) k/uL Monocytes # (0-1.0) k/uL Eosinophils # (0-0.7) k/uL Basophils # (0-0.2) k/uL Hypochromasia PT 9.9 (9.0-12.0) sec INR 1.0 (<1.2) APTT 25.3 (22.0-30.0) sec Sodium (137-145) mmol/L Potassium (3.5-5.1) mmol/L Chloride (98-107) mmol/L Carbon Dioxide (22-30) mmol/L Anion Gap mmol/L BUN (7-17) mg/dL Creatinine (0.52-1.04) mg/dL Est GFR (MDRD) Af Amer (>60 ml/min/1.73 sqM) Est GFR (MDRD) Non-Af (>60 ml/min/1.73 sqM) Glucose (74-99) mg/dL Plasma Lactic Acid Asim (0.7-2.0) mmol/L Calcium (8.4-10.2) mg/dL Total Bilirubin (0.2-1.3) mg/dL AST (14-36) U/L ALT (9-52) U/L Alkaline Phosphatase (38-126) U/L Total Protein (6.3-8.2) g/dL Albumin (3.5-5.0) g/dL - Radiology Data Radiology results: report reviewed, image reviewed Disposition Clinical Impression: Acute bronchitis Disposition: HOME SELF-CARE Condition: Stable Instructions: Acute Bronchitis (ED) Additional Instructions: Please use medication as discussed. Please follow up with family doctor if symptoms have not improved over the next two days. Please return to the emergency room if your symptoms increase or worsen or for any other concerns. Prescriptions: Albuterol Nebulized [Ventolin Nebulized] 2.5 mg INHALATION Q4H #20 nebu predniSONE 50 mg PO DAILY #5 tab Promethaz-Cod 6.25-10 mg/5 ml [Phenergan with Codeine] 5 ml PO Q4HR PRN #50 ml PRN Reason: Cough Referrals: Amaya Driver MD [Primary Care Provider] - 1-2 days Time of Disposition: 14:18
[2017-04-19 13:52] LABS: Basophils % (A) 1 %; CH 27.8; CHCM 30.9; Eosinophils # (A) 0.3 k/uL (0-0.7); Eosinophils % (A) 4 %; HCT 41.4 % (34.0-46.0); HDW 2.34; HGB 12.9 gm/dL (11.4-16.0); Hypochromasia Slight; Luc % (Auto) 3; Lymphocytes % (A) 41 %; MCH 28.2 pg (25.0-35.0); MCHC 31.2 g/dL (31.0-37.0); MCV 90.5 fL (80.0-100.0); Mean Platelet Volume 7.1; Monocytes # (A) 0.3 k/uL (0-1.0); Monocytes % (A) 4 %; Neutrophils # (A) 3.4 k/uL (1.3-7.7); Neutrophils % (A) 47 %; RBC 4.58 m/uL (3.80-5.40); RDW 15.2 % (11.5-15.5); WBC 7.3 k/uL (3.8-10.6); WBC (Perox) 7.38
--- NOTE | 2017-04-19 14:00 | XR ---
EXAMINATION TYPE: XR chest 2V DATE OF EXAM: 04/19/2017 COMPARISON: Chest x-ray September 08, 2016 HISTORY: Cough and dyspnea for 3 weeks worse over last 3 days TECHNIQUE: Frontal and lateral views of the chest are obtained. FINDINGS: Central parahilar peribronchial cuffing is present. There is no focal air space opacity, pl eural effusion, or pneumothorax seen. The cardiac silhouette size is upper limits of normal. The o sseous structures are intact. IMPRESSION: No suspicious peripheral airspace opacity seen. Central parahilar peribronchial cuffing raises concern for reactive airway disease possibly from a viral bronchiolitis, correlate clinically.
[2017-04-19 14:01] LABS: ALT 38 U/L (9-52); AST 29 U/L (14-36); Alkaline Phosphatase 141 U/L (38-126); Anion Gap 9 mmol/L; Blood Urea Nitrogen 12 mg/dL (7-17); Calcium 9.6 mg/dL (8.4-10.2); Carbon Dioxide 24 mmol/L (22-30); Chloride 105 mmol/L (98-107); Glucose 101 mg/dL (74-99); Non-African American GFR(MDRD) >60 (>60 ml/min/1.73 sqM); Potassium 4.4 mmol/L (3.5-5.1); Sodium 138 mmol/L (137-145); Total Bilirubin 0.2 mg/dL (0.2-1.3); Total Protein 6.6 g/dL (6.3-8.2)
[2017-04-19 14:02] LABS: Partial Thromboplastin Time 25.3 sec (22.0-30.0); Prothrombin Time 9.9 sec (9.0-12.0)
[2017-04-19] MEDS ORDERED: methylPREDNISolone SOD SUCCI 125 MG/2 ML VIAL IV STA (14:20)
[2017-04-19 14:23] VITALS: BP 133/68; PULSE 82; RESP 16; TEMP 97.3
== END 2017-04-19 14:34 | disposition home or self-care (01) ==
LOC: EC 11:39
DX: J45.901 Unspecified asthma with (acute) exacerbation (principal); E11.9 Type 2 diabetes mellitus without complications; E07.9 Disorder of thyroid, unspecified; F17.200 Nicotine dependence, unspecified, uncomplicated; Z79.51 Long term (current) use of inhaled steroids; Z79.84 Long term (current) use of oral hypoglycemic drugs; Z79.899 Other long term (current) drug therapy; Z88.0 Allergy status to penicillin; Z91.011 Allergy to milk products; Z91.040 Latex allergy status
CPT/HCPCS: 99285 ×2; 96374 ×2; 96361 ×2; 36415; 94640; 80053; 83605; 85025; 85610; 85730; 87040; 71020; J2930

== ENCOUNTER → 2017-08-02 | Outpatient (CLI) | payer MEDICARE, OTHER ==
--- NOTE | 2017-08-02 11:16 | US ---
EXAMINATION TYPE: US extremity nonvasc mass RT DATE OF EXAM: 08/02/2017 COMPARISON: NONE CLINICAL HISTORY: R22.31 mass and lump, right upper limb. Patient states feeling a palpable lump that comes and goes on right anterior arm elbow region. Patient states she does not feel the lump at thi s time. Area of palpable lump scanned. No discreet masses or lesions seen. Contralateral images taken. IMPRESSION: No distinct abnormality seen. If symptoms persist consider MRI.
== END | disposition home or self-care (01) ==
LOC: RADUSWWP 09:42
PROVIDERS: ATTEND Family Medicine
DX: R22.31 Localized swelling, mass and lump, right upper limb (principal)

== ENCOUNTER → 2018-10-24 | Outpatient (CLI) | payer MEDICARE, OTHER ==
--- NOTE | 2018-10-24 08:47 | MM ---
Reason for exam: clinical finding. History: Patient is postmenopausal. Family history of breast cancer in mother at age 45, breast cancer in paternal grandmother at age 38, breast cancer in maternal grandmother at age 60, breast cancer in 2 aunts, and breast cancer in 3 cousins. Took hormonal contraceptives for 1 year beginning at age 22. Physical Findings: Nurse Summary: 0.5cm nodule in the right breat at nipple (nurse dw). MG 3D Diag Mammo W/Cad GLEN Bilateral CC and MLO view(s) were taken. The breast tissue is almost entirely fat. Finding: There are round, regional calcifications in the right breast. There is no discrete abnormality including area of concern. These results were verbally communicated with the patient and result sheet given to the patient on 10/24/18. ASSESSMENT: Incomplete: need additional imaging evaluation, BI-RAD 0 RECOMMENDATION: Ultrasound of the right breast.
--- NOTE | 2018-10-24 08:49 | USB ---
Reason for exam: additional evaluation requested from abnormal screening. History: Patient is postmenopausal. Family history of breast cancer in mother at age 45, breast cancer in paternal grandmother at age 38, breast cancer in maternal grandmother at age 60, breast cancer in 2 aunts, and breast cancer in 3 cousins. Took hormonal contraceptives for 1 year beginning at age 22. US Breast Limited RT Right limited breast ultrasound including focal area of concern, retroareolar and axilla demonstrates no cystic or solid lesion seen. These results were verbally communicated with the patient and result sheet given to the patient on 10/24/18. ASSESSMENT: Negative, BI-RAD 1 RECOMMENDATION: Routine screening mammogram of both breasts in 1 year. Manage on a clinical basis with regard to palpable abnormality.
== END | disposition home or self-care (01) ==
LOC: RADMAMWWP 07:02
PROVIDERS: ATTEND Family Medicine
DX: N63.10 Unspecified lump in the right breast, unspecified quadrant (principal); R92.8 Other abnormal and inconclusive findings on diagnostic imaging of breast
CPT/HCPCS: 77066; 76642; G0279; 77062

== ENCOUNTER 2019-02-26 18:09 | Inpatient (IN) | payer MEDICARE, OTHER ==
[2019-02-26] MEDS ORDERED: SODIUM CHLORIDE 0.9% 1,000 ML IV STA (18:20)
--- NOTE | 2019-02-26 18:42 | ED ---
Syncope HPI - General Chief Complaint: Syncope Stated Complaint: syncope Time Seen by Provider: 02/26/19 18:19 Source: patient, EMS, RN notes reviewed, old records reviewed Mode of arrival: EMS Limitations: no limitations - History of Present Illness Initial Comments: This is a 63-year-old female the ER for evaluation she was essay for evaluation of syncopal event. Patient has medical history of diabetes she has remote history prolonged QT like her heart was racing later fluttering. No recent travel history no sick contacts denies any pain no headache chest pain shortness breath or abdominal pain. Patient denies any recent change in medications. Currently feels better which is that her self. MD Complaint: loss of consciousness, collapsed -: minutes(s) Prodromal Symptoms: lightheaded, palpitations, heart racing -: second(s) Witnessed: yes - by bystander Injuries Sustained Associated with Event: None Current Symptoms: none, back to baseline History: previous syncopal episode Context: at rest Treatments Prior to Arrival: none - Related Data Home Medications Medication Instructions Recorded Confirmed Levothyroxine Sodium [Synthroid] 200 mcg PO DAILY 09/08/16 02/26/19 glyBURIDE [Diabeta] 5 mg PO BID 09/08/16 02/26/19 metFORMIN HCL 1,000 mg PO BID 09/08/16 02/26/19 Albuterol Sulfate [Proair Hfa] 2 puff INHALATION RT-Q6H PRN 04/19/17 02/26/19 Atorvastatin [Lipitor] 20 mg PO HS 04/19/17 02/26/19 Lisinopril [Zestril] 5 mg PO DAILY 04/19/17 02/26/19 Nadolol [Corgard] 20 mg PO DAILY 04/19/17 02/26/19 amLODIPine [Norvasc] 10 mg PO DAILY 04/19/17 02/26/19 Albuterol Nebulized [Ventolin 2.5 mg INHALATION RT-QID PRN 02/26/19 02/26/19 Nebulized] Fluticasone Propionate [Flovent 1 puff INHALATION RT-BID 02/26/19 02/26/19 Hfa 110 mcg] Montelukast [Singulair] 10 mg PO HS 02/26/19 02/26/19 Omeprazole 20 mg PO DAILY 02/26/19 02/26/19 Ranitidine HCl [Zantac] 150 mg PO BID 02/26/19 02/26/19 Triamterene-Hctz 37.5-25Mg 1 cap PO DAILY 02/26/19 02/26/19 [Dyazide 37.5-25 Capsule] Vitamin B-12 100mcg 100 mcg PO DAILY 02/26/19 02/26/19 Allergies Allergy/AdvReac Type Severity Reaction Status Date / Time Latex, Natural Rubber Allergy Rash/Hives Verified 02/26/19 18:58 lactose AdvReac Diarrhea Verified 02/26/19 18:58 Penicillins AdvReac Nausea & Verified 02/26/19 18:58 Vomiting Review of Systems ROS Statement: Those systems with pertinent positive or pertinent negative responses have been documented in the HPI. ROS Other: All systems not noted in ROS Statement are negative. Past Medical History Past Medical History: Chest Pain / Angina, Diabetes Mellitus, Thyroid Disorder Additional Past Medical History / Comment(s): see DR Soriano H & P History of Any Multi-Drug Resistant Organisms: None Reported Additional Past Surgical History / Comment(s): Past Anesthesia/Blood Transfusion Reactions: Previous Problems w/ Anesthesia Additional Past Anesthesia/Blood Transfusion Reaction / Comment(s): difficulty waking up Past Psychological History: No Psychological Hx Reported Smoking Status: Current every day smoker Past Alcohol Use History: None Reported Past Drug Use History: None Reported - Past Family History Sister(s) Family Medical History: Myocardial Infarction (NH) Father Family Medical History: Cancer Additional Family Medical History / Comment(s): father of lung cancer Mother Family Medical History: Cancer Additional Family Medical History / Comment(s): mother from breast cancer Daughter(s) Additional Family Medical History / Comment(s): daughter from SIDS General Exam Limitations: no limitations General appearance: alert, in no apparent distress, obese Head exam: Present: atraumatic, normocephalic, normal inspection Eye exam: Present: normal appearance, PERRL, EOMI. Absent: scleral icterus, conjunctival injection, periorbital swelling ENT exam: Present: normal exam, mucous membranes moist Neck exam: Present: normal inspection. Absent: tenderness, meningismus, lymphadenopathy Respiratory exam: Present: normal lung sounds bilaterally. Absent: respiratory distress, wheezes, rales, rhonchi, stridor Cardiovascular Exam: Present: regular rate, normal rhythm, normal heart sounds. Absent: systolic murmur, diastolic murmur, rubs, gallop, clicks GI/Abdominal exam: Present: soft, normal bowel sounds. Absent: distended, tenderness, guarding, rebound, rigid Extremities exam: Present: normal inspection, full ROM, normal capillary refill. Absent: tenderness, pedal edema, joint swelling, calf tenderness Back exam: Present: normal inspection Neurological exam: Present: alert, oriented X3, CN II-XII intact Psychiatric exam: Present: normal affect, normal mood Skin exam: Present: warm, dry, intact, normal color. Absent: rash Course Vital Signs 02/26/19 18:12 Temperature 97.6 F Pulse Rate 70 Respiratory 16 Rate Blood Pressure 120/72 O2 Sat by Pulse 90 L Oximetry - Reevaluation(s) Reevaluation #1: 02/26/19 20:41 Medical record is reviewed Reevaluation #2: 02/26/19 20:41 No recurrent syncope here in the emergency room Reevaluation #3: 02/26/19 20:41 is welcome complaining of headache chest pain shortness breath or abdominal pain EKG Findings - EKG Comments: EKG Findings:: EKG shows sinus rhythm rate of 70, MO 30, QRS 70, QTc 490 Medical Decision Making - Medical Decision Making 83 female the ER for evaluation status post syncopal event. Patient has history of prolonged QT, severely hypocalcemic hypo-magnesium, hypo-kslemic. Patient be admitted for electronically replacement - Lab Data Result diagrams: 02/26/19 18:44 02/26/19 18:44 Lab Results 02/26/19 02/26/19 02/26/19 Range/Units 18:44 18:44 18:44 WBC 7.3 (3.8-10.6) k/uL RBC 4.18 (3.80-5.40) m/uL Hgb 11.2 L (11.4-16.0) gm/dL Hct 35.7 (34.0-46.0) % MCV 85.4 (80.0-100.0) fL MCH 26.7 (25.0-35.0) pg MCHC 31.2 (31.0-37.0) g/dL RDW 15.0 (11.5-15.5) % Plt Count 334 (150-450) k/uL Neutrophils % 60 % Lymphocytes % 28 % Monocytes % 6 % Eosinophils % 3 % Basophils % 1 % Neutrophils # 4.4 (1.3-7.7) k/uL Lymphocytes # 2.1 (1.0-4.8) k/uL Monocytes # 0.5 (0-1.0) k/uL Eosinophils # 0.2 (0-0.7) k/uL Basophils # 0.0 (0-0.2) k/uL PT 10.4 (9.0-12.0) sec INR 1.0 (<1.2) APTT 25.6 (22.0-30.0) sec D-Dimer 0.97 H (<0.60) mg/L FEU Sodium 140 (137-145) mmol/L Potassium 2.8 L (3.5-5.1) mmol/L Chloride 121 H (98-107) mmol/L Carbon Dioxide 16 L (22-30) mmol/L Anion Gap 3 mmol/L BUN 10 (7-17) mg/dL Creatinine 0.54 (0.52-1.04) mg/dL Est GFR (CKD-EPI)AfAm >90 (>60 ml/min/1.73 sqM) Est GFR (CKD-EPI)NonAf >90 (>60 ml/min/1.73 sqM) Glucose 66 L (74-99) mg/dL Calcium 5.5 L* (8.4-10.2) mg/dL Phosphorus 2.7 (2.5-4.5) mg/dL Magnesium 1.4 L (1.6-2.3) mg/dL Total Bilirubin 0.2 (0.2-1.3) mg/dL AST 13 L (14-36) U/L ALT 18 (9-52) U/L Alkaline Phosphatase 68 (38-126) U/L Creatine Kinase 58 (30-135) U/L Troponin I (0.000-0.034) ng/mL Total Protein 4.0 L (6.3-8.2) g/dL Albumin 1.9 L (3.5-5.0) g/dL 02/26/19 Range/Units 18:44 WBC (3.8-10.6) k/uL RBC (3.80-5.40) m/uL Hgb (11.4-16.0) gm/dL Hct (34.0-46.0) % MCV (80.0-100.0) fL MCH (25.0-35.0) pg MCHC (31.0-37.0) g/dL RDW (11.5-15.5) % Plt Count (150-450) k/uL Neutrophils % % Lymphocytes % % Monocytes % % Eosinophils % % Basophils % % Neutrophils # (1.3-7.7) k/uL Lymphocytes # (1.0-4.8) k/uL Monocytes # (0-1.0) k/uL Eosinophils # (0-0.7) k/uL Basophils # (0-0.2) k/uL PT (9.0-12.0) sec INR (<1.2) APTT (22.0-30.0) sec D-Dimer (<0.60) mg/L FEU Sodium (137-145) mmol/L Potassium (3.5-5.1) mmol/L Chloride (98-107) mmol/L Carbon Dioxide (22-30) mmol/L Anion Gap mmol/L BUN (7-17) mg/dL Creatinine (0.52-1.04) mg/dL Est GFR (CKD-EPI)AfAm (>60 ml/min/1.73 sqM) Est GFR (CKD-EPI)NonAf (>60 ml/min/1.73 sqM) Glucose (74-99) mg/dL Calcium (8.4-10.2) mg/dL Phosphorus (2.5-4.5) mg/dL Magnesium (1.6-2.3) mg/dL Total Bilirubin (0.2-1.3) mg/dL AST (14-36) U/L ALT (9-52) U/L Alkaline Phosphatase (38-126) U/L Creatine Kinase (30-135) U/L Troponin I <0.012 (0.000-0.034) ng/mL Total Protein (6.3-8.2) g/dL Albumin (3.5-5.0) g/dL - Radiology Data Radiology results: report reviewed (CTA chest is negative for acute disease), image reviewed Critical Care Time Critical Care Time: Yes Total Critical Care Time: 31 Disposition Clinical Impression: Vasovagal syncope, Prolonged QT interval, Hypocalcemia, Hypomagnesemia, Hypokalemia Disposition: ADMITTED IP TO THIS HOSP Condition: Fair Is patient prescribed a controlled substance at d/c from ED?: No Referrals: Amaya Driver MD [Primary Care Provider] - 1-2 days
[2019-02-26 18:56] LABS: Basophils % (A) 1 %; Eosinophils # (A) 0.2 k/uL (0-0.7); Eosinophils % (A) 3 %; HCT 35.7 % (34.0-46.0); HGB 11.2 gm/dL (11.4-16.0); Lymphocytes # (A) 2.1 k/uL (1.0-4.8); Lymphocytes % (A) 28 %; MCH 26.7 pg (25.0-35.0); MCHC 31.2 g/dL (31.0-37.0); MCV 85.4 fL (80.0-100.0); Mean Platelet Volume 7.8; Monocytes # (A) 0.5 k/uL (0-1.0); Monocytes % (A) 6 %; Neutrophils # (A) 4.4 k/uL (1.3-7.7); Neutrophils % (A) 60 %; Platelet Count 334 k/uL (150-450); RBC 4.18 m/uL (3.80-5.40); WBC 7.3 k/uL (3.8-10.6)
[2019-02-26 19:05] LABS: ALT 18 U/L (9-52); AST 13 U/L (14-36); African American GFR (CKD) >90 (>60 ml/min/1.73 sqM); Albumin 1.9 g/dL (3.5-5.0); Alkaline Phosphatase 68 U/L (38-126); Anion Gap 3 mmol/L; Blood Urea Nitrogen 10 mg/dL (7-17); Carbon Dioxide 16 mmol/L (22-30); Chloride 121 mmol/L (98-107); Creatine Kinase 58 U/L (30-135); Glucose 66 mg/dL (74-99); Magnesium 1.4 mg/dL (1.6-2.3); Non-African American GFR(CKD) >90 (>60 ml/min/1.73 sqM); Phosphorus 2.7 mg/dL (2.5-4.5); Potassium 2.8 mmol/L (3.5-5.1); Sodium 140 mmol/L (137-145); Total Bilirubin 0.2 mg/dL (0.2-1.3)
[2019-02-26 19:09] LABS: Calcium 5.5 mg/dL (8.4-10.2)
[2019-02-26 19:10] LABS: Partial Thromboplastin Time 25.6 sec (22.0-30.0); Prothrombin Time 10.4 sec (9.0-12.0)
[2019-02-26 19:12] LABS: D-Dimer 0.97 mg/L FEU (<0.60)
[2019-02-26] MEDS ORDERED: POTASSIUM BICARBONATE/CIT AC 20 MEQ TABLET.EFF PO ONE (19:49)
[2019-02-26] MEDS ORDERED: POTASSIUM CHLORIDE 20 MEQ in WATER FOR INJECTION 1 100ML.BAG IVPB STA (19:49)
[2019-02-26] MEDS ORDERED: CALCIUM GLUCONATE 2 GM in SODIUM CHLORIDE 0.9% 100 ML IVPB ONE (19:49)
--- NOTE | 2019-02-26 20:15 | CT ---
EXAMINATION TYPE: CT angio chest DATE OF EXAM: 02/26/2019 8:07 PM COMPARISON: None HISTORY: Syncope and difficulty breathing. CT DLP: 982.6 mGycm Automated exposure control for dose reduction was used. CONTRAST: CTA scan of the thorax is performed with IV Contrast, patient injected with 100ml mL of Isovue 370, p ulmonary embolism protocol. There are 3-D post processed images.. FINDINGS: There is coarse interstitial infiltrate throughout the lungs. There are mild emphysematous changes in both upper lobes. There is subpleural reticular infiltrate in the posterior lung . There is no pneumothorax. There are enlarged mediastinal and bronchial lymph nodes up to 1.5 cm. Ther e is suboptimal contrast density in the pulmonary arteries. I see no filling defects. Thoracic aorta shows no aneurysm or dissection. Upper abdominal soft tissues are unremarkable. The bony thorax is in tact. Liver appears enlarged with probable fatty infiltration. IMPRESSION: PULMONARY INTERSTITIAL FIBROSIS. PULMONARY MILD EMPHYSEMA. INTERSTITIAL PULMONARY INFILTRATES COULD R ELATE TO FIBROSIS OR ACUTE INTERSTITIAL PNEUMONIA. No evidence of pulmonary embolism. Mild mediastinal and bronchial adenopathy probably due to inflamma tory disease.
[2019-02-26] MEDS ORDERED: ASPIRIN 81 MG PO STA (20:34)
[2019-02-26] MEDS ORDERED: NITROGLYCERIN SL TABS 0.4 MG TAB SUBLINGUAL PRN (20:34)
[2019-02-26 21:23] LABS: Appearance,Urine Clear (Clear); Bilirubin,Urine Negative (Negative); Blood,Urine Negative (Negative); Color,Urine Yellow; Glucose,Urine (UA) Negative (Negative); Ketones,Urine Negative (Negative); Leukocyte Esterase,Urine Negative (Negative); Nitrite,Urine Negative (Negative); Protein,Urine Negative (Negative); Specific Gravity,Urine 1.032 (1.001-1.035); Urobilinogen,Urine <2.0 mg/dL (<2.0)
[2019-02-26] MEDS ORDERED: Magnesium Replacement Protocol 1 EACH MISC MISCELLANE PRN (21:43)
[2019-02-26 22:04] LABS: Glucose,Whole Blood 126 mg/dL (75-99)
[2019-02-26 22:30] VITALS: RESP 18; BMI 50.8
[2019-02-26] MEDS: METOPROLOL TARTRATE 25 MG TAB PO SCH (22:36)
[2019-02-26] MEDS: MAGNESIUM SULFATE-D5W PMX 1 GM in DEXTROSE/WATER 1 100ML.BAG IVPB SCH (23:29)
[2019-02-27] MEDS: MAGNESIUM SULFATE-D5W PMX 1 GM in DEXTROSE/WATER 1 100ML.BAG IVPB SCH ×2 (00:51→02:10)
[2019-02-27 06:39] LABS: Basophils % (A) 1 %; Eosinophils # (A) 0.3 k/uL (0-0.7); Eosinophils % (A) 4 %; HCT 36.8 % (34.0-46.0); Lymphocytes # (A) 2.5 k/uL (1.0-4.8); Lymphocytes % (A) 33 %; MCH 28.1 pg (25.0-35.0); MCHC 32.6 g/dL (31.0-37.0); MCV 86.2 fL (80.0-100.0); Mean Platelet Volume 7.3; Monocytes # (A) 0.4 k/uL (0-1.0); Monocytes % (A) 6 %; Neutrophils # (A) 4.1 k/uL (1.3-7.7); Neutrophils % (A) 54 %; Platelet Count 345 k/uL (150-450); RBC 4.28 m/uL (3.80-5.40); RDW 15.9 % (11.5-15.5); WBC 7.6 k/uL (3.8-10.6)
[2019-02-27 06:49] LABS: Calcium 9.3 mg/dL (8.4-10.2); Magnesium 2.8 mg/dL (1.6-2.3)
[2019-02-27 07:09] LABS: Glucose,Whole Blood 91 mg/dL (75-99)
[2019-02-27] MEDS: METOPROLOL TARTRATE 25 MG TAB PO SCH ×2 (09:06→21:08)
[2019-02-27] MEDS: ASPIRIN 325 MG TAB PO SCH (09:06)
[2019-02-27] MEDS ORDERED: NICOTINE 14MG/24HR PATCH TRANSDERM SCH (09:30)
[2019-02-27] MEDS ORDERED: ALBUTEROL NEBULIZED 2.5 MG/3 ML INHALATION PRN (09:44)
[2019-02-27] MEDS ORDERED: NICOTINE 7MG/24HR PATCH TRANSDERM SCH (10:00)
--- NOTE | 2019-02-27 12:00 | ECHOF ---
Referral Reason:syncope MEASUREMENTS -------- HEIGHT: 180.3 cm WEIGHT: 165.6 kg BP: 95/52 RVIDd: 2.7 cm (< 3.3) IVSd: 1.2 cm (0.6 - 1.1) LVIDd: 4.8 cm (3.9 - 5.3) LVPWd: 1.1 cm (0.6 - 1.1) IVSs: 1.7 cm LVIDs: 3.1 cm LVPWs: 2.0 cm LAESV Index (A-L): 15.71 ml/m Ao Diam: 3.4 cm (2.0 - 3.7) AV Cusp: 2.4 cm (1.5 - 2.6) LA Diam: 3.7 cm (2.7 - 3.8) MV EXCURSION: 14.230 mm (> 18.000) MV EF SLOPE: 86 mm/s (70 - 150) EPSS: 0.8 cm MV E Juan: 1.27 m/s MV DecT: 235 ms MV A Juan: 0.93 m/s MV E/A Ratio: 1.37 RAP: 5.00 mmHg RVSP: 22.99 mmHg FINDINGS -------- Sinus rhythm. This was a technically adequate study. The left ventricular size is normal. There is mild concentric left ventricular hypertrophy. Overa ll left ventricular systolic function is normal with, an EF between 55 - 60 %. The diastolic fillin g pattern is normal for the age of the patient 14.23. The right ventricle is normal in size. Normal LA size by volume 22+/-6 ml/m2. The right atrium was not well visualized. Interatrial and interventricular septum intact. The aortic valve is trileaflet and appears structurally normal. There is no evidence of aortic regu rgitation. There is no evidence of aortic stenosis. Mild mitral regurgitation is present. Mild tricuspid regurgitation present. The right ventricular systolic pressure, as measured by Doppl er, is 22.99mmHg. There is no pulmonic regurgitation present. The aortic root size is normal. IVC Not well visulized. CONCLUSIONS -------- 1. Sinus rhythm. 2. This was a technically adequate study. 3. The left ventricular size is normal. 4. There is mild concentric left ventricular hypertrophy. 5. Overall left ventricular systolic function is normal with, an EF between 55 - 60 %. 6. The diastolic filling pattern is normal for the age of the patient 14.23 7. The right ventricle is normal in size. 8. Normal LA size by volume 22+/-6 ml/m2. 9. The right atrium was not well visualized. 10. Interatrial and interventricular septum intact. 11. The aortic valve is trileaflet and appears structurally normal. 12. There is no evidence of aortic regurgitation. 13. There is no evidence of aortic stenosis. 14. Mild mitral regurgitation is present. 15. Mild tricuspid regurgitation present. 16. The right ventricular systolic pressure, as measured by Doppler, is 22.99mmHg. 17. There is no pulmonic regurgitation present. 18. The aortic root size is normal. 19. IVC Not well visulized. [employer] MECH[employer]IC: Dary Beckwith RDCS
[2019-02-27 12:04] LABS: Glucose,Whole Blood 87 mg/dL (75-99)
--- NOTE | 2019-02-27 12:35 | P.HPIM ---
History of Present Illness 63-year-old pleasant female came in none because of syncope. Patient EKG showed mildly prolonged QT, otherwise no significant abnormality of patient blood pressure is extremely low and she came in with systolics going down to as low as 90. Patient denied any loss of bowel or bladder incontinence no seizure-like activity. Patient doesn't have any fever chills patient denied any diarrhea. Patient is on multiple antidepressant medications includingbeta margoth which is being continued along with the amlodipine triamterene hydrochlorothiazide and lisinopril. All of these medications are being discontinued which I believe is responsible for her syncope. I obtain an echocardiogram which showed normal ejection fraction no other significant valvular abnormality. Patient is also diabetic obese. I may have to give the patient tonight since I'm changing lot of medication changes and patient is low normal blood pressure at this time we may need to discontinue one or 2 of the anti-hypertensive medication she is on to make the the decision I will need to monitor the patient overnight here. Possibility of discharge tomorrow Review of Systems REVIEW OF SYSTEMS: CONSTITUTIONAL: No fever, no malaise, no fatigue. HEENT: No recent visual problems or hearing problems. Denied any sore throat. CARDIOVASCULAR: No chest pain, orthopnea, PND, no palpitations. PULMONARY: No shortness of breath, no cough, no hemoptysis. GASTROINTESTINAL: No diarrhea, no nausea, no vomiting, no abdominal pain. NEUROLOGICAL: No headaches, no weakness, no numbness. HEMATOLOGICAL: Denies any bleeding or petechiae. GENITOURINARY: Denies any burning micturition, frequency, or urgency. MUSCULOSKELETAL/RHEUMATOLOGICAL: Denies any joint pain, swelling, or any muscle pain. ENDOCRINE: Denies any polyuria or polydipsia. The rest of the 14-point review of systems is negative. Past Medical History Past Medical History: Chest Pain / Angina, Diabetes Mellitus, Hypertension, Rheumatoid Arthritis (RA), Thyroid Disorder Additional Past Medical History / Comment(s): see DR Soriano H & P; long QT syndrome History of Any Multi-Drug Resistant Organisms: None Reported Additional Past Surgical History / Comment(s): Past Anesthesia/Blood Transfusion Reactions: Previous Problems w/ Anesthesia Additional Past Anesthesia/Blood Transfusion Reaction / Comment(s): difficulty waking up Smoking Status: Current every day smoker - Past Family History Sister(s) Family Medical History: Myocardial Infarction (MD) Father Family Medical History: Cancer Additional Family Medical History / Comment(s): father of lung cancer Mother Family Medical History: Cancer Additional Family Medical History / Comment(s): mother from breast cancer Daughter(s) Additional Family Medical History / Comment(s): daughter from SIDS Medications and Allergies Home Medications Medication Instructions Recorded Confirmed Type Levothyroxine Sodium [Synthroid] 200 mcg PO DAILY 09/08/16 02/26/19 History glyBURIDE [Diabeta] 5 mg PO BID 09/08/16 02/26/19 History metFORMIN HCL 1,000 mg PO BID 09/08/16 02/26/19 History Albuterol Sulfate [Proair Hfa] 2 puff INHALATION RT-Q6H PRN 04/19/17 02/26/19 History Atorvastatin [Lipitor] 20 mg PO HS 04/19/17 02/26/19 History Lisinopril [Zestril] 5 mg PO DAILY 04/19/17 02/26/19 History Nadolol [Corgard] 20 mg PO DAILY 04/19/17 02/26/19 History amLODIPine [Norvasc] 10 mg PO DAILY 04/19/17 02/26/19 History Albuterol Nebulized [Ventolin 2.5 mg INHALATION RT-QID PRN 02/26/19 02/26/19 History Nebulized] Fluticasone Propionate [Flovent 1 puff INHALATION RT-BID 02/26/19 02/26/19 History Hfa 110 mcg] Montelukast [Singulair] 10 mg PO HS 02/26/19 02/26/19 History Omeprazole 20 mg PO DAILY 02/26/19 02/26/19 History Ranitidine HCl [Zantac] 150 mg PO BID 02/26/19 02/26/19 History Triamterene-Hctz 37.5-25Mg 1 cap PO DAILY 02/26/19 02/26/19 History [Dyazide 37.5-25 Capsule] Vitamin B-12 100mcg 100 mcg PO DAILY 02/26/19 02/26/19 History Allergies Allergy/AdvReac Type Severity Reaction Status Date / Time Latex, Natural Rubber Allergy Rash/Hives Verified 02/26/19 18:58 lactose AdvReac Diarrhea Verified 02/26/19 18:58 Penicillins AdvReac Nausea & Verified 02/26/19 18:58 Vomiting Physical Exam Vitals: Vital Signs Temp Pulse Pulse Resp BP BP Pulse Ox 02/27/19 11:52 60 02/27/19 11:42 64 02/27/19 08:00 97.5 F L 67 18 118/75 93 L 02/27/19 03:28 75 18 95/52 98 02/27/19 00:00 98.5 F 70 18 98/64 98 02/26/19 22:22 98.6 F 78 18 139/76 98 02/26/19 20:30 73 26 H 02/26/19 20:00 107/53 02/26/19 19:30 68 24 113/74 96 02/26/19 19:00 70 32 H 104/71 97 02/26/19 18:30 68 20 120/72 95 02/26/19 18:13 91 L 02/26/19 18:12 97.6 F 70 16 120/72 90 L Intake and Output 02/26/19 02/27/19 02/27/19 22:59 06:59 14:59 Intake Total 600 400 480 Balance 600 400 480 Intake: Intake, IV Titration 400 Amount Magnesium Sulfate-D5w Pmx 300 1 gm In Dextrose/Water 1 100ml.bag @ 100 mls/hr IVPB Q1H [facility] Rx#: [id number] Potassium Chloride 20 meq 100 In Water For Injection 1 100ml.bag @ 50 mls/hr IVPB ONCE STA Rx#: [id number] Oral 600 480 Other: Voiding Method Toilet # Voids 2 1 Weight 167.829 kg 165.9 kg PHYSICAL EXAMINATION: GENERAL: The patient is alert and oriented x3, not in any acute distress. obese HEENT: Pupils are round and equally reacting to light. EOMI. No scleral icterus. No conjunctival pallor. Normocephalic, atraumatic. No pharyngeal erythema. No thyromegaly. CARDIOVASCULAR: S1 and S2 present. No murmurs, rubs, or gallops. PULMONARY: Chest is clear to auscultation, no wheezing or crackles. ABDOMEN: Soft, nontender, nondistended, normoactive bowel sounds. No palpable organomegaly. MUSCULOSKELETAL: No joint swelling or deformity. EXTREMITIES: No cyanosis, clubbing, or pedal edema. NEUROLOGICAL: Gross neurological examination did not reveal any focal deficits. SKIN: No rashes. Results CBC & Chem 7: 02/27/19 06:12 02/27/19 06:12 Labs: Abnormal Lab Results - Last 24 Hours (Table) 02/26/19 02/26/19 02/26/19 Range/Units 18:44 18:44 18:44 Hgb 11.2 L (11.4-16.0) gm/dL RDW (11.5-15.5) % D-Dimer 0.97 H (<0.60) mg/L FEU Potassium 2.8 L (3.5-5.1) mmol/L Chloride 121 H (98-107) mmol/L Carbon Dioxide 16 L (22-30) mmol/L Glucose 66 L (74-99) mg/dL POC Glucose (mg/dL) (75-99) mg/dL Calcium 5.5 L* (8.4-10.2) mg/dL Magnesium 1.4 L (1.6-2.3) mg/dL AST 13 L (14-36) U/L Total Protein 4.0 L (6.3-8.2) g/dL Albumin 1.9 L (3.5-5.0) g/dL LDL Cholesterol, Calc (0-99) mg/dL HDL Cholesterol (40-60) mg/dL 02/26/19 02/27/19 02/27/19 Range/Units 22:02 06:12 06:12 Hgb (11.4-16.0) gm/dL RDW 15.9 H (11.5-15.5) % D-Dimer (<0.60) mg/L FEU Potassium (3.5-5.1) mmol/L Chloride (98-107) mmol/L Carbon Dioxide (22-30) mmol/L Glucose (74-99) mg/dL POC Glucose (mg/dL) 126 H (75-99) mg/dL Calcium (8.4-10.2) mg/dL Magnesium 2.8 H (1.6-2.3) mg/dL AST (14-36) U/L Total Protein (6.3-8.2) g/dL Albumin (3.5-5.0) g/dL LDL Cholesterol, Calc 106 H (0-99) mg/dL HDL Cholesterol 29 L (40-60) mg/dL Thrombosis Risk Factor Assmnt - Choose All That Apply Each Factor Represents 1 point: Obesity (BMI >25), Swollen legs (current) Each Risk Factor Represents 2 Points: Age 61-74 years Thrombosis Risk Factor Assessment Total Risk Factor Score: 4 Thrombosis Risk Factor Assessment Level: Moderate Risk Assessment and Plan Plan: -syncope: Probably secondary to aneurysm medications which will be held except for a beta margoth which will be continued. Patient also was started on metoprolol will continue that medication to avoid reflex tachycardia. -Hypertension patient on multiple antidepressant medications all of these are being discontinued on do not believe patient will need IV fluids IV fluids can falsely increase her blood pressure which will interfere with the titration of her antidepressant medications because of which are less started on 9 any IV fluids either -hypothyroidism: I'll obtain TSH levels -Type 2 diabetes mellitus continue with his home regimen will titrated depending on her blood sugars I'm holding off on sulfonylurea as her blood sugars are low normal -obesity: Counseling was provided -hyperlipidemia DVT prophylaxis early ambulation
[2019-02-27 14:29] LABS: T4, Free (Free Thyroxine) 1.27 ng/dL (0.78-2.19)
[2019-02-27] MEDS: NICOTINE 21MG/24HR PATCH TRANSDERM SCH (14:55)
[2019-02-27 17:22] LABS: Glucose,Whole Blood 103 mg/dL (75-99)
[2019-02-27] MEDS: metFORMIN 500 MG TAB PO SCH (18:17)
[2019-02-27 20:46] LABS: Glucose,Whole Blood 101 mg/dL (75-99)
[2019-02-27] MEDS ORDERED: MONTELUKAST 10 MG TAB PO SCH (21:00)
[2019-02-27] MEDS ORDERED: ATORVASTATIN 20 MG TAB PO SCH (21:00)
[2019-02-27] MEDS ORDERED: FAMOTIDINE 20 MG TAB PO SCH (21:00)
[2019-02-28 06:24] LABS: Glucose,Whole Blood 113 mg/dL (75-99)
[2019-02-28] MEDS ORDERED: LEVOTHYROXINE 100 MCG TAB PO SCH (06:30)
[2019-02-28] MEDS: metFORMIN 500 MG TAB PO SCH (06:36)
[2019-02-28] MEDS ORDERED: PANTOPRAZOLE 40 MG TABLET PO SCH (07:30)
[2019-02-28] MEDS: METOPROLOL TARTRATE 25 MG TAB PO SCH (10:20)
[2019-02-28] MEDS: NICOTINE 21MG/24HR PATCH TRANSDERM SCH (10:20)
[2019-02-28] MEDS: ASPIRIN 325 MG TAB PO SCH (10:20)
[2019-02-28 10:55] VITALS: BP 122/75; PULSE 68; TEMP 98
[2019-02-28 12:14] LABS: Glucose,Whole Blood 145 mg/dL (75-99)
--- NOTE | 2019-02-28 13:16 | P.DS ---
Providers Date of admission: 02/26/19 20:34 Attending physician: Maximo Cheatham Primary care physician: Amaya [facility] Course: 63-year-old pleasant female came in none because of syncope. Patient EKG showed mildly prolonged QT, otherwise no significant abnormality of patient blood pressure is extremely low and she came in with systolics going down to as low as 90. Patient denied any loss of bowel or bladder incontinence no seizure-like activity. Patient doesn't have any fever chills patient denied any diarrhea. Patient is on multiple antidepressant medications includingbeta margoth which is being continued along with the amlodipine triamterene hydrochlorothiazide and lisinopril. All of these medications are being discontinued which I believe is responsible for her syncope. I obtain an echocardiogram which showed normal ejection fraction no other significant valvular abnormality. Patient is also diabetic obese. I may have to give the patient tonight since I'm changing lot of medication changes and patient is low normal blood pressure at this time we may need to discontinue one or 2 of the anti-hypertensive medication she is on to make the the decision I will need to monitor the patient overnight here. 02/28/2019 Patient is clinically doing well her blood pressure remains on the low normal side. Patient will be discharged on metoprolol instead of nodolol because of her blood pressure. Patient may require another antihypertensive medication which will be preferably should be ROSI inhibitor or angiotensin receptor margoth margoth if needed because of her type 2 diabetes mellitus history patient was asked to check the blood pressure daily at home if he starts going up in and a day or so asked to take lisinopril 5 mg and can you to hold on amlodipine in the diuretic therapy. Patient's sulfonylurea will be discontinued as well as proton pulmonary inhibitor. PHYSICAL EXAMINATION: GENERAL: The patient is alert and oriented x3, not in any acute distress. obese HEENT: Pupils are round and equally reacting to light. EOMI. No scleral icterus. No conjunctival pallor. Normocephalic, atraumatic. No pharyngeal erythema. No thyromegaly. CARDIOVASCULAR: S1 and S2 present. No murmurs, rubs, or gallops. PULMONARY: Chest is clear to auscultation, no wheezing or crackles. ABDOMEN: Soft, nontender, nondistended, normoactive bowel sounds. No palpable organomegaly. MUSCULOSKELETAL: No joint swelling or deformity. EXTREMITIES: No cyanosis, clubbing, or pedal edema. NEUROLOGICAL: Gross neurological examination did not reveal any focal deficits. SKIN: No rashes. Assessment and Plan Plan: -syncope: Probably secondary to antihypertensive medications, echo cardiac exam did not show any valvular abnormalities within normal limits patient will be discharged today with the above-mentioned plan -Hypertension -hypothyroidism: TSH is bit low but T4 within normal limits, probably spurted repeat TSH again before we increase the dose of levothyroxine as she is already on very high-dose -Type 2 diabetes mellitus management as mentioned above -obesity: Counseling was provided -hyperlipidemia Patient Condition at Discharge: Fair Plan - Discharge Summary Discharge Rx Participant: No New Discharge Prescriptions: New Metoprolol Tartrate [Lopressor] 25 mg PO BID #60 tab Nicotine 21Mg/24Hr Patch [Habitrol] 1 each TRANSDERM DAILY #14 patch Continue metFORMIN HCL 1,000 mg PO BID Levothyroxine Sodium [Synthroid] 200 mcg PO DAILY Albuterol Sulfate [Proair Hfa] 2 puff INHALATION RT-Q6H PRN PRN Reason: Shortness Of Breath Atorvastatin [Lipitor] 20 mg PO HS Vitamin B-12 100mcg 100 mcg PO DAILY Montelukast [Singulair] 10 mg PO HS Fluticasone Propionate [Flovent Hfa 110 mcg] 1 puff INHALATION RT-BID Albuterol Nebulized [Ventolin Nebulized] 2.5 mg INHALATION RT-QID PRN PRN Reason: Shortness Of Breath Ranitidine HCl [Zantac] 150 mg PO BID Discontinued glyBURIDE [Diabeta] 5 mg PO BID Nadolol [Corgard] 20 mg PO DAILY Lisinopril [Zestril] 5 mg PO DAILY amLODIPine [Norvasc] 10 mg PO DAILY Triamterene-Hctz 37.5-25Mg [Dyazide 37.5-25 Capsule] 1 cap PO DAILY Omeprazole 20 mg PO DAILY Discharge Medication List Levothyroxine Sodium [Synthroid] 200 mcg PO DAILY 09/08/16 [History] metFORMIN HCL 1,000 mg PO BID 09/08/16 [History] Albuterol Sulfate [Proair Hfa] 2 puff INHALATION RT-Q6H PRN 04/19/17 [History] Atorvastatin [Lipitor] 20 mg PO HS 04/19/17 [History] Albuterol Nebulized [Ventolin Nebulized] 2.5 mg INHALATION RT-QID PRN 02/26/19 [History] Fluticasone Propionate [Flovent Hfa 110 mcg] 1 puff INHALATION RT-BID 02/26/19 [History] Montelukast [Singulair] 10 mg PO HS 02/26/19 [History] Ranitidine HCl [Zantac] 150 mg PO BID 02/26/19 [History] Vitamin B-12 100mcg 100 mcg PO DAILY 02/26/19 [History] Metoprolol Tartrate [Lopressor] 25 mg PO BID #60 tab 02/28/19 [Rx] Nicotine 21Mg/24Hr Patch [Habitrol] 1 each TRANSDERM DAILY #14 patch 02/28/19 [Rx] Follow up Appointment(s)/Referral(s): Amaya Driver MD [Primary Care Provider] - 04/06/19 1:00 pm (Tuesday no earlier appointments available. Please call every morning at 8:30 to hopefully obtain a same day appointment) Patient Instructions/Handouts: Hypocalcemia (DC), Hypomagnesemia (DC) Discharge Disposition: HOME SELF-CARE
== END 2019-02-28 14:32 | disposition home or self-care (01) | DRG 312 ==
LOC: EC 18:09 → 3SCARD 20:34
PROVIDERS: ADMIT Hospitalist; ATTEND Hospitalist
DX: I95.2 Hypotension due to drugs (principal); Z68.43 Body mass index [BMI] 50.0-59.9, adult; T46.4X5A Adverse effect of angiotensin-converting-enzyme inhibitors, initial encounter; T50.2X5A Adverse effect of carbonic-anhydrase inhibitors, benzothiadiazides and other diuretics, initial encounter; E03.9 Hypothyroidism, unspecified; E11.9 Type 2 diabetes mellitus without complications; E66.9 Obesity, unspecified; Z71.3 Dietary counseling and surveillance; E78.5 Hyperlipidemia, unspecified; E83.42 Hypomagnesemia; E83.51 Hypocalcemia; E87.6 Hypokalemia; F17.210 Nicotine dependence, cigarettes, uncomplicated; I10 Essential (primary) hypertension; M06.9 Rheumatoid arthritis, unspecified; Z79.84 Long term (current) use of oral hypoglycemic drugs; Z79.890 Hormone replacement therapy; Z79.899 Other long term (current) drug therapy; Z80.1 Family history of malignant neoplasm of trachea, bronchus and lung; Z80.3 Family history of malignant neoplasm of breast; Z82.49 Family history of ischemic heart disease and other diseases of the circulatory system; Z88.0 Allergy status to penicillin; Z91.040 Latex allergy status; Z91.011 Allergy to milk products
CPT/HCPCS: 36415; 71275; 80048; 80053; 80061; 81003; 82550; 83735; 84100; 84132; 84439; 84443; 84484; 85025; 85379; 85610; 85730; 93005; 93306; 94640; 96361; 96365; 96367; 99291

== ENCOUNTER → 2021-01-26 | Outpatient (CLI) | payer MEDICARE, OTHER ==
--- NOTE | 2021-01-27 08:34 | MM ---
Reason for exam: screening (asymptomatic). Last mammogram was performed 2 years and 3 months ago. History: Patient is postmenopausal. Family history of breast cancer in mother at age 45, breast cancer in paternal grandmother at age 38, breast cancer in maternal grandmother at age 60, breast cancer in 2 aunts, and breast cancer in 3 cousins. Took hormonal contraceptives for 1 year beginning at age 22. Physical Findings: A clinical breast exam by your physician is recommended on an annual basis and results should be correlated with mammographic findings. MG 3D Screening Mammo W/Cad Bilateral CC and MLO view(s) were taken. XCCL view(s) were taken of the right breast. Prior study comparison: October 24, 2018, bilateral MG 3d diag mammo w/cad GLEN. There are scattered fibroglandular densities. ASSESSMENT: Negative, BI-RAD 1 RECOMMENDATION: Routine screening mammogram of both breasts in 1 year.
== END | disposition home or self-care (01) ==
LOC: RADMAMWWP 11:31
PROVIDERS: ATTEND Family Medicine
DX: Z12.31 Encounter for screening mammogram for malignant neoplasm of breast (principal); Z78.0 Asymptomatic menopausal state; Z80.3 Family history of malignant neoplasm of breast; Z79.3 Long term (current) use of hormonal contraceptives
CPT/HCPCS: 77063; 77067

== ENCOUNTER → 2023-03-10 | Outpatient (CLI) | payer MEDICARE, OTHER ==
--- NOTE | 2023-03-10 11:41 | US ---
EXAMINATION TYPE: US thyroid st tissue head/neck DATE OF EXAM: 03/10/2023 COMPARISON: NONE CLINICAL INDICATION: Female, 67 years old with history of E04.1 thyroid nodule; Patient states unable to lose weight. On thyroid meds. Patient states she had thyroid radiated at age 20 GLAND SIZE: Bilateral lobes appear small in size and difficult to visualize Right Lobe: 1.9 x 0.7 x 0.6 cm Overall Parenchyma: heterogenous Left Lobe: 1.7 x 0.7 x 0.7 cm Overall Parenchyma: heterogenous Isthmus Thickness: 0.1 cm NODULES RIGHT: # of nodules measured on right: 1 1. 0.3 X 0.3 x 0.2 cm, mid mid, solid or almost completely solid, hypoechoic nodule, which is wider than tall, with smooth margins, without echogenic foci. Prior size: No prior LEFT: # of nodules measured on left: 0 ISTHMUS: # of nodules measured in the isthmus: 0 Bilateral neck scanned, no evidence of lymphadenopathy. IMPRESSION: Atrophic heterogenous thyroid gland with a subcentimeter right thyroid lobe TR 4 nodule. 2017 ACR TI-RADS LEVEL: TR-RADS 4 - Moderately Suspicious: Follow if > 1 cm, FNA if > 1.5 cm *Highest TI-RADS level nodule reported
== END | disposition home or self-care (01) ==
LOC: RADUSWWP 09:59
PROVIDERS: ATTEND Family Medicine
DX: E04.1 Nontoxic single thyroid nodule (principal); E03.4 Atrophy of thyroid (acquired); R63.4 Abnormal weight loss; Z68.43 Body mass index [BMI] 50.0-59.9, adult; Z79.890 Hormone replacement therapy
CPT/HCPCS: 76536

== ENCOUNTER 2023-08-03 11:24 | Inpatient (IN) | payer MEDICARE, OTHER ==
[2023-08-03] MEDS ORDERED: SODIUM CHLORIDE 0.9% 1,000 ML IV STA ×2 (11:42)
[2023-08-03] MEDS ORDERED: IBUPROFEN 600 MG TAB PO STA (11:42)
[2023-08-03] MEDS ORDERED: ACETAMINOPHEN TAB 500 MG TAB PO STA (11:42)
--- NOTE | 2023-08-03 11:42 | ED ---
Fever HPI - General Chief Complaint: Fever Stated Complaint: NV,Headache Time Seen by Provider: 08/03/23 11:40 Source: patient, RN notes reviewed, old records reviewed Mode of arrival: wheelchair Limitations: no limitations - History of Present Illness Initial Comments: This is a 68-year-old female to the emergency department F for evaluation of severe shortness of breath weakness fever not feeling well. Patient is otherwise no travel history no sick contacts but does not feel well. He feels lightheaded dizzy and short of breath also complaining of cough sore throat fever, patient is significantly short of breath here in the emergency department with persistent weakness recent fever and shortness of breath, no chest pain MD Complaint: fever, malaise, weakness, other (Shortness of breath) -: days(s) Temperature Source: subjective, oral Context: multiple patients with similar symptoms Associated Symptoms: chills, rigors, myalgias Treatments Prior to Arrival: none - Related Data Home Medications Medication Instructions Recorded Confirmed metFORMIN HCL [Glucophage] 1,000 mg PO BID-W/MEALS 09/08/16 08/03/23 Albuterol Sulfate [Proair Hfa] 2 puff INHALATION RT-Q6H PRN 04/19/17 08/03/23 Atorvastatin [Lipitor] 20 mg PO HS 04/19/17 08/03/23 Albuterol Nebulized [Ventolin 2.5 mg INHALATION RT-Q6H 02/26/19 08/03/23 Nebulized] Budesonide/Formoterol Fumarate 2 puff INHALATION RT-BID 08/03/23 08/03/23 [Symbicort 160-4.5 Mcg Inhaler] Famotidine [Pepcid] 20 mg PO BID PRN 08/03/23 08/03/23 Levothyroxine Sodium [Synthroid] 175 mcg PO DAILY 08/03/23 08/03/23 Losartan Potassium 50 mg PO DAILY 08/03/23 08/03/23 glipiZIDE [Glucotrol] 5 mg PO BID 08/03/23 08/03/23 Previous Rx's Medication Instructions Recorded Metoprolol Tartrate [Lopressor] 25 mg PO BID #60 tab 02/28/19 Azithromycin [Zithromax Tri-Jasper (3 500 mg PO DAILY 1 Days #1 tab 08/05/23 tabs)] Cefdinir 300 mg PO Q12HR #6 cap 08/05/23 Furosemide [Lasix] 20 mg PO DAILY #60 tab 08/05/23 Nicotine 21Mg/24Hr Patch [Habitrol] 1 patch TRANSDERM DAILY #14 patch 08/05/23 Oseltamivir 6Mg/ml Oral Susp 30 mg PO Q12HR #6 each 08/05/23 [Tamiflu] methylPREDNISolone Dose Pack 4 mg PO DIRECTED #1 packet 08/05/23 [Medrol Dose Pack] Allergies Allergy/AdvReac Type Severity Reaction Status Date / Time Latex, Natural Rubber Allergy Rash/Hives Verified 08/03/23 13:00 lactose AdvReac Diarrhea Verified 08/03/23 13:00 Penicillins AdvReac Nausea & Verified 08/03/23 13:00 Vomiting Review of Systems ROS Statement: Those systems with pertinent positive or pertinent negative responses have been documented in the HPI. ROS Other: All systems not noted in ROS Statement are negative. Past Medical History Past Medical History: Chest Pain / Angina, Diabetes Mellitus, Hypertension, R heumatoid Arthritis (RA), Thyroid Disorder Additional Past Medical History / Comment(s): see DR Soriano H & P; long QT syndrome History of Any Multi-Drug Resistant Organisms: None Reported Additional Past Surgical History / Comment(s): Past Anesthesia/Blood Transfusion Reactions: Previous Problems w/ Anesthesia Additional Past Anesthesia/Blood Transfusion Reaction / Comment(s): difficulty waking up Past Psychological History: No Psychological Hx Reported Past Alcohol Use History: None Reported Past Drug Use History: None Reported - Past Family History Sister(s) Family Medical History: Myocardial Infarction (SD) Father Family Medical History: Cancer Additional Family Medical History / Comment(s): father of lung cancer Mother Family Medical History: Cancer Additional Family Medical History / Comment(s): mother from breast cancer Daughter(s) Additional Family Medical History / Comment(s): daughter from SIDS General Exam Limitations: no limitations General appearance: anxious, in distress, obese Head exam: Present: atraumatic, normocephalic, normal inspection Eye exam: Present: normal appearance, PERRL, EOMI. Absent: scleral icterus, conjunctival injection, periorbital swelling ENT exam: Present: normal exam, mucous membranes moist Neck exam: Present: normal inspection. Absent: tenderness, meningismus, lymphadenopathy Respiratory exam: Present: normal lung sounds bilaterally. Absent: respiratory distress, wheezes, rales, rhonchi, stridor Cardiovascular Exam: Present: regular rate, normal rhythm, normal heart sounds. Absent: systolic murmur, diastolic murmur, rubs, gallop, clicks GI/Abdominal exam: Present: soft, normal bowel sounds. Absent: distended, tenderness, guarding, rebound, rigid Extremities exam: Present: normal inspection, full ROM, normal capillary refill. Absent: tenderness, pedal edema, joint swelling, calf tenderness Back exam: Present: normal inspection Neurological exam: Present: alert, oriented X3, CN II-XII intact Psychiatric exam: Present: normal affect, normal mood Skin exam: Present: warm, dry, intact, normal color. Absent: rash Course Vital Signs 08/03/23 08/03/23 08/03/23 11:27 11:30 14:00 Temperature 102.4 F H Pulse Rate 105 H 90 Pulse Rate [ Pulse Oximetery ] Respiratory 18 20 21 Rate Blood Pressure 124/75 133/87 Blood Pressure [Right Arm] O2 Sat by Pulse 87 L 84 L 95 Oximetry 08/03/23 08/03/23 08/03/23 14:13 15:08 15:17 Temperature 98.2 F Pulse Rate 90 96 Pulse Rate [ Pulse Oximetery ] Respiratory Rate Blood Pressure Blood Pressure [Right Arm] O2 Sat by Pulse Oximetry 08/03/23 08/03/23 08/03/23 20:02 20:12 20:41 Temperature Pulse Rate 88 90 Pulse Rate [ Pulse Oximetery ] Respiratory 19 Rate Blood Pressure Blood Pressure [Right Arm] O2 Sat by Pulse Oximetry 08/03/23 08/04/23 08/04/23 21:15 02:00 07:57 Temperature 97.9 F Pulse Rate 76 Pulse Rate [ Pulse Oximetery ] Respiratory 18 Rate Blood Pressure Blood Pressure 109/67 112/62 [Right Arm] O2 Sat by Pulse 95 Oximetry 08/04/23 08/04/23 08/04/23 08:08 08:10 14:44 Temperature 98 F 97.8 F Pulse Rate 73 Pulse Rate [ 74 74 Pulse Oximetery ] Respiratory 18 18 Rate Blood Pressure Blood Pressure 115/65 136/78 [Right Arm] O2 Sat by Pulse 94 L 92 L Oximetry 08/04/23 08/04/23 08/04/23 14:58 15:04 18:11 Temperature 97.5 F L Pulse Rate 74 77 Pulse Rate [ 82 Pulse Oximetery ] Respiratory 16 Rate Blood Pressure Blood Pressure 123/70 [Right Arm] O2 Sat by Pulse 95 Oximetry - Reevaluation(s) Reevaluation #1: 08/03/23 15:07 Medical records reviewed Reevaluation #2: 08/03/23 15:07 Patient symptoms improving Reevaluation #3: 08/03/23 15:07 Patient informed results and questions answered Reevaluation #4: 08/03/23 15:07 Was pt. sent in by a medical professional or institution (, PA, REMOTE BROADCAST TECHNICIAN, urgent care, hospital, or skilled nursing...) When possible be specific @ -no Did you speak to anyone other than the patient for history (EMS, parent, family, police, friend...)? What history was obtained from this source @ -no Did you review nursing and triage notes (agree or disagree)? Why? @ -agree Are old charts reviewed (outside hosp., previous admission, EMS record, old EKG, old radiological studies, urgent care reports/EKG's, skilled nursing records)? Report findings @ -yes Differential Diagnosis (chest pain, altered mental status, abdominal pain women, abdominal pain men, vaginal bleeding, weakness, fever, dyspnea, syncope, headache, dizziness, GI bleed, back pain, seizure, CVA, palpatations, mental health, musculoskeletal)? @ -prior EKG interpreted by me (3pts min.). @ -yes X-rays interpreted by me (1pt min.). @ -yes positive for CHF CT interpreted by me (1pt min.). @ -no U/S interpreted by me (1pt. min.). @ -no What testing was considered but not performed or refused? (CT, X-rays, U/S, labs)? Why? @ -none What meds were considered but not given or refused? Why? @ -none Did you discuss the management of the patient with other professionals (professionals i.e. , [facility], REMOTE BROADCAST TECHNICIAN, lab, RT, psych nurse, high school social science teacher, leg breaker, teacher, chief digital officer, child welfare caseworker)? Give summary @ -no Was smoking cessation discussed for >3mins.? @ -no Was critical care preformed (if so, how long)? @ -yes31 Were there social determinants of health that impacted care today? How? (Homelessness, low income, unemployed, alcoholism, drug addiction, transportation, low edu. Level, literacy, decrease access to med. care, care home, rehab)? @ -none Was there de-escalation of care discussed even if they declined (Discuss DNR or withdrawal of care, Hospice)? DNR status @ -no What co-morbidities impacted this encounter? (DM, HTN, Smoking, COPD, CAD, Cancer, CVA, ARF, Chemo, Hep., AIDS, mental health diagnosis, sleep apnea, morbid obesity)? @ -none Was patient admitted / discharged? Hospital course, mention meds given and route, prescriptions, significant lab abnormalities, going to OR and other pertinent info. @ - 68 female to the emergency department for evaluation today. Patient presents today for evaluation of altered mental status dizziness shortness of breath weakness found to have influenza and CHF. Patient be admitted for supportive care fever control and monitoring of hypoxia Admitted Undiagnosed new problem with uncertain prognosis? @ -no Drug Therapy requiring intensive monitoring for toxicity (Heparin, Nitro, Insulin, Cardizem)? @ -no Were any procedures done? @ -no Diagnosis/symptom? @ -CHF, influenza and hypoxia Acute, or Chronic, or Acute on Chronic? @ -Acute Uncomplicated (without systemic symptoms) or Complicated (systemic symptoms)? @ -Complicated Side effects of treatment? @ -no Exacerbation, Progression, or Severe Exacerbation? @ -exacerbation Poses a threat to life or bodily function? How? (Chest pain, USA, SD, pneumonia, PE, COPD, DKA, ARF, appy, cholecystitis, CVA, Diverticulitis, Homicidal, Suicidal, threat to staff... and all critical care pts) @ -yes respiratory failure Reevaluation #5: 08/03/23 15:07 Differential Fever: Pneumonia, viral URI, endocarditis, myocarditis, pericarditis, otitis, sinusitis, peritonsillar Abscess, retropharyngeal Abscess, epiglottitis, perit onitis, appendicitis, Kayley cystitis, diverticulitis, hepatitis, colitis, UTI, PID, TOA, pyelonephritis, prostatitis, epididymitis, meningitis, encephalitis, pulmonary embolism, CVA, thyroid storm, pancreatitis, adrenal crisis, cavernous sinus thrombosis, this is not meant to be an all-inclusive list. Differential Dyspnea: Coronary syndrome, arrhythmia, tamponade, asthma, COPD, pulmonary embolism, pneumonia, pneumothorax, pulmonary effusion, anaphylaxis, diabetic ketoacidosis, flailed chest, pulmonary contusion, diaphragmatic rupture, anemia, neuromuscular, this is not meant to be an all-inclusive list. Medical Decision Making - Medical Decision Making 68 female to the emergency department for evaluation today. Patient presents today for evaluation of altered mental status dizziness shortness of breath weakness found to have influenza and CHF. Patient be admitted for supportive care fever control and monitoring of hypoxia - Lab Data Result diagrams: 08/04/23 06:48 08/04/23 06:48 Lab Results 08/03/23 08/03/23 08/03/23 Range/Units 11:52 11:52 11:52 WBC (3.8-10.6) k/uL RBC (3.80-5.40) m/uL Hgb (11.4-16.0) gm/dL Hct (34.0-46.0) % MCV (80.0-100.0) fL MCH (25.0-35.0) pg MCHC (31.0-37.0) g/dL RDW (11.5-15.5) % Plt Count (150-450) k/uL MPV Neutrophils % % Lymphocytes % % Monocytes % % Eosinophils % % Basophils % % Neutrophils # (1.3-7.7) k/uL Lymphocytes # (1.0-4.8) k/uL Monocytes # (0-1.0) k/uL Eosinophils # (0-0.7) k/uL Basophils # (0-0.2) k/uL PT 11.3 (10.0-12.5) sec INR 1.0 (<1.2) APTT 28.2 (22.0-30.0) sec Sodium 133 L (137-145) mmol/L Potassium 4.2 (3.5-5.1) mmol/L Chloride 101 (98-107) mmol/L Carbon Dioxide 24 (22-30) mmol/L Anion Gap 8 mmol/L BUN 15 (7-17) mg/dL Creatinine 1.08 H (0.52-1.04) mg/dL Est GFR (CKD-EPI)AfAm 62 (>60 ml/min/1.73 sqM) Est GFR (CKD-EPI)NonAf 54 (>60 ml/min/1.73 sqM) Glucose 126 H (74-99) mg/dL Plasma Lactic Acid Asim 0.9 (0.7-2.0) mmol/L Calcium 8.8 (8.4-10.2) mg/dL Phosphorus 4.1 (2.5-4.5) mg/dL Magnesium 1.8 (1.6-2.3) mg/dL Total Bilirubin 0.5 (0.2-1.3) mg/dL AST 94 H (14-36) U/L ALT 46 H (4-34) U/L Alkaline Phosphatase 106 (38-126) U/L Troponin I (0.000-0.034) ng/mL NT-Pro-B Natriuret Pep 1020 pg/mL Total Protein 7.6 (6.3-8.2) g/dL Albumin 4.0 (3.5-5.0) g/dL Procalcitonin (0.02-0.09) ng/mL TSH 2.370 (0.465-4.680) mIU/L Influenza Type A (PCR) (Not Detectd) Influenza Type B (PCR) (Not Detectd) RSV (PCR) (Not Detectd) SARS-CoV-2 (PCR) (Not Detectd) 08/03/23 08/03/23 08/03/23 Range/Units 11:52 11:52 11:54 WBC 6.3 (3.8-10.6) k/uL RBC 4.56 (3.80-5.40) m/uL Hgb 13.8 (11.4-16.0) gm/dL Hct 41.8 (34.0-46.0) % MCV 91.6 (80.0-100.0) fL MCH 30.3 (25.0-35.0) pg MCHC 33.1 (31.0-37.0) g/dL RDW 14.4 (11.5-15.5) % Plt Count 189 (150-450) k/uL MPV 7.5 Neutrophils % 76 % Lymphocytes % 11 % Monocytes % 9 % Eosinophils % 1 % Basophils % 1 % Neutrophils # 4.8 (1.3-7.7) k/uL Lymphocytes # 0.7 L (1.0-4.8) k/uL Monocytes # 0.5 (0-1.0) k/uL Eosinophils # 0.0 (0-0.7) k/uL Basophils # 0.1 (0-0.2) k/uL PT (10.0-12.5) sec INR (<1.2) APTT (22.0-30.0) sec Sodium (137-145) mmol/L Potassium (3.5-5.1) mmol/L Chloride (98-107) mmol/L Carbon Dioxide (22-30) mmol/L Anion Gap mmol/L BUN (7-17) mg/dL Creatinine (0.52-1.04) mg/dL Est GFR (CKD-EPI)AfAm (>60 ml/min/1.73 sqM) Est GFR (CKD-EPI)NonAf (>60 ml/min/1.73 sqM) Glucose (74-99) mg/dL Plasma Lactic Acid Asim (0.7-2.0) mmol/L Calcium (8.4-10.2) mg/dL Phosphorus (2.5-4.5) mg/dL Magnesium (1.6-2.3) mg/dL Total Bilirubin (0.2-1.3) mg/dL AST (14-36) U/L ALT (4-34) U/L Alkaline Phosphatase (38-126) U/L Troponin I 0.018 (0.000-0.034) ng/mL NT-Pro-B Natriuret Pep pg/mL Total Protein (6.3-8.2) g/dL Albumin (3.5-5.0) g/dL Procalcitonin 0.33 H (0.02-0.09) ng/mL TSH (0.465-4.680) mIU/L Influenza Type A (PCR) (Not Detectd) Influenza Type B (PCR) (Not Detectd) RSV (PCR) (Not Detectd) SARS-CoV-2 (PCR) (Not Detectd) 08/03/23 Range/Units 11:59 WBC (3.8-10.6) k/uL RBC (3.80-5.40) m/uL Hgb (11.4-16.0) gm/dL Hct (34.0-46.0) % MCV (80.0-100.0) fL MCH (25.0-35.0) pg MCHC (31.0-37.0) g/dL RDW (11.5-15.5) % Plt Count (150-450) k/uL MPV Neutrophils % % Lymphocytes % % Monocytes % % Eosinophils % % Basophils % % Neutrophils # (1.3-7.7) k/uL Lymphocytes # (1.0-4.8) k/uL Monocytes # (0-1.0) k/uL Eosinophils # (0-0.7) k/uL Basophils # (0-0.2) k/uL PT (10.0-12.5) sec INR (<1.2) APTT (22.0-30.0) sec Sodium (137-145) mmol/L Potassium (3.5-5.1) mmol/L Chloride (98-107) mmol/L Carbon Dioxide (22-30) mmol/L Anion Gap mmol/L BUN (7-17) mg/dL Creatinine (0.52-1.04) mg/dL Est GFR (CKD-EPI)AfAm (>60 ml/min/1.73 sqM) Est GFR (CKD-EPI)NonAf (>60 ml/min/1.73 sqM) Glucose (74-99) mg/dL Plasma Lactic Acid Asim (0.7-2.0) mmol/L Calcium (8.4-10.2) mg/dL Phosphorus (2.5-4.5) mg/dL Magnesium (1.6-2.3) mg/dL Total Bilirubin (0.2-1.3) mg/dL AST (14-36) U/L ALT (4-34) U/L Alkaline Phosphatase (38-126) U/L Troponin I (0.000-0.034) ng/mL NT-Pro-B Natriuret Pep pg/mL Total Protein (6.3-8.2) g/dL Albumin (3.5-5.0) g/dL Procalcitonin (0.02-0.09) ng/mL TSH (0.465-4.680) mIU/L Influenza Type A (PCR) Detected A (Not Detectd) Influenza Type B (PCR) Not Detected (Not Detectd) RSV (PCR) Not Detected (Not Detectd) SARS-CoV-2 (PCR) Not Detected (Not Detectd) - EKG Data -: EKG Interpreted by Me (EKG is sinus 98 ND 176 QRS 102 QRS 125) - Radiology Data Radiology results: report reviewed (Chest x-rays positive for CHF), image reviewed Critical Care Time Critical Care Time: Yes Total Critical Care Time: 31 Disposition Clinical Impression: Influenza, CHF (congestive heart failure), Fever, Hypoxia Disposition: ADMITTED IP TO THIS HOSP Condition: Stable Is patient prescribed a controlled substance at d/c from ED?: No Time of Disposition: 14:00
--- NOTE | 2023-08-03 12:09 | XR ---
EXAMINATION TYPE: XR chest 2V DATE OF EXAM: 08/03/2023 12:06 PM CLINICAL INDICATION:Female, 68 years old with history of Weakness; [facility] COMPARISON: Chest radiographs from 04/19/2017 TECHNIQUE: XR chest 2V Frontal and lateral views of the chest. FINDINGS: Lungs/Pleura: There is no evidence of pleural effusion, focal consolidation, or pneumothorax. Pulmonary vascularity: Pulmonary vascular congestion. Heart/mediastinum: Cardiomediastinal silhouette is enlarged and stable. Musculoskeletal: No acute osseous pathology. IMPRESSION: Cardiomegaly and mild pulmonary vascular congestion. Correlate with BNP for congestive heart failure.
[2023-08-03 12:10] LABS: Basophils # (A) 0.1 k/uL (0-0.2); Basophils % (A) 1 %; Eosinophils % (A) 1 %; HCT 41.8 % (34.0-46.0); HGB 13.8 gm/dL (11.4-16.0); Lymphocytes # (A) 0.7 k/uL (1.0-4.8); Lymphocytes % (A) 11 %; MCH 30.3 pg (25.0-35.0); MCHC 33.1 g/dL (31.0-37.0); MCV 91.6 fL (80.0-100.0); Mean Platelet Volume 7.5; Monocytes # (A) 0.5 k/uL (0-1.0); Monocytes % (A) 9 %; Neutrophils # (A) 4.8 k/uL (1.3-7.7); Neutrophils % (A) 76 %; Platelet Count 189 k/uL (150-450); RBC 4.56 m/uL (3.80-5.40); RDW 14.4 % (11.5-15.5); WBC 6.3 k/uL (3.8-10.6)
[2023-08-03 12:24] LABS: ALT 46 U/L (4-34); AST 94 U/L (14-36); African American GFR (CKD) 62 (>60 ml/min/1.73 sqM); Alkaline Phosphatase 106 U/L (38-126); Anion Gap 8 mmol/L; Blood Urea Nitrogen 15 mg/dL (7-17); Calcium 8.8 mg/dL (8.4-10.2); Carbon Dioxide 24 mmol/L (22-30); Chloride 101 mmol/L (98-107); Glucose 126 mg/dL (74-99); Magnesium 1.8 mg/dL (1.6-2.3); Non-African American GFR(CKD) 54 (>60 ml/min/1.73 sqM); Phosphorus 4.1 mg/dL (2.5-4.5); Potassium 4.2 mmol/L (3.5-5.1); Sodium 133 mmol/L (137-145); Total Bilirubin 0.5 mg/dL (0.2-1.3); Total Protein 7.6 g/dL (6.3-8.2)
[2023-08-03 12:33] LABS: NT-Pro-B-Type Natriuretic Pept 1020 pg/mL
[2023-08-03 12:36] LABS: Partial Thromboplastin Time 28.2 sec (22.0-30.0); Prothrombin Time 11.3 sec (10.0-12.5)
[2023-08-03] MEDS ORDERED: ACETAMINOPHEN TAB 325 MG TAB PO PRN (14:08)
[2023-08-03] MEDS ORDERED: IPRATROPIUM-ALBUTEROL 3 ML NEB INHALATION STA (14:08)
[2023-08-03] MEDS ORDERED: IPRATROPIUM-ALBUTEROL 3 ML NEB INHALATION PRN (14:08)
[2023-08-03] MEDS ORDERED: ONDANSETRON 4 MG/2 ML VIAL IVP PRN (14:08)
[2023-08-03] MEDS ORDERED: MORPHINE SULFATE 4 MG/ML SYRINGE IV PRN (14:08)
[2023-08-03] MEDS ORDERED: NALOXONE 0.4 MG/ML 1 ML VIAL IV PRN (14:08)
[2023-08-03] MEDS ORDERED: IBUPROFEN 400 MG TAB PO PRN (14:08)
[2023-08-03] MEDS ORDERED: FAMOTIDINE 20 MG TAB PO PRN (14:50)
[2023-08-03] MEDS ORDERED: DEXTROSE 50% SYRINGE 50 ML IVP PRN ×2 (14:53)
[2023-08-03] MEDS ORDERED: NICOTINE GUM (POLACRILEX) 2 MG GUM BUCCAL PRN (14:54)
--- NOTE | 2023-08-03 14:55 | P.HPIM ---
History of Present Illness H&P Date: 08/03/23 Patient is a 68-year-old female with history of hypertension, dyslipidemia, hypothyroidism, type 2 diabetes, COPD presenting with shortness of breath and flulike symptoms. She claims that her symptoms started acutely on . Started off with headache, fevers, chills, nausea and vomiting and abdominal pain. She has also been having diarrhea and constipation alternating. She has also been experiencing shortness of breath and cough with some sputum production. She denies any significant wheezing or increased use of her inhalers. She denies any orthopnea, PND, exertional dyspnea. She does have oxygen at home but does not utilize it. She continues to smoke about 2 packs/day. She denies any alcohol use or illicit drug use. She denies any travel history or sick contacts. In the ED, temperature was 102.4, pulse 105, respiratory rate 18, blood pressure 124/75, saturating at 84% on room air. WBC 6.3, hemoglobin 13.8, sodium 133, creatinine 1.08, glucose 126, total bili 0.5, AST 34, ALT 46, ALP 106, troponin 0.018, proBNP 1000, influenza A positive. Chest x-ray independently i nterpreted, shows bilateral interstitial opacities more prominent at the bases. EKG independently interpreted shows normal sinus rhythm. Patient received a total of 1 L of normal saline in the ED. patient being admitted for acute hypoxic respiratory failure in the setting of influenza infection. Pertinent positives and negatives as discussed in HPI, a complete review of systems was performed and all other systems are negative. Patient seen and examined at bedside. Vital signs reviewed General: nontoxic, no distress, appears at stated age, morbidly obese Derm: warm, dry Head: atraumatic, normocephalic, symmetric Eyes: EOMI, no lid lag, anicteric sclera, pupils equal round reactive to light ENT: Nose and ears atraumatic Neck: No thyromegaly, supple Mouth: no lip lesion, mucus membranes moist Cardiovascular: S1S2 reg, no murmur, no edema Lungs: Bibasilar rhonchi, no wheeze, no accessory muscle use, supplemental oxygen Abdominal: soft, nontender to palpation, no guarding, no appreciable organomegaly Ext: no gross muscle atrophy, muscle strength muscle strength 5 out of 5 in all 4 extremities, no contractures Neuro: CN II-XII grossly intact Psych: Alert, oriented, appropriate affect Assessment/Plan: Active: Acute hypoxic respiratory failure Sepsis secondary to Influenza A infection Acute COPD exacerbation Congestive heart failure less likely -Continue to wean oxygen -Tamiflu 75 p.o. every 12 hours 10 doses -DuoNeb scheduled and as needed, continue home Symbicort twice daily -Solu-Medrol 40 IV every 6 hours -Echocardiogram ordered, daily weights, intake and output -Cardiology consulted by ER -Continue patient on telemetry Type 2 diabetes -Sliding scale insulin, monitor for hypoglycemia Nicotine dependence -Counseled regarding smoking cessation -21 mg patch nicotine daily ordered Chronic: Dyslipidemia Hypertension Hypothyroidism The patient is admitted with an anticipated greater than 2 midnight stay as inpatient status for evaluation of acute hypoxic respiratory failure. Surrogate decision-maker: Daughter CODE STATUS: Full code DVT prophylaxis: Subcu heparin Anticipated discharge date: Pending clinical course Anticipated discharge place: Pending clinical course A total of 66 minutes was spent on the care of this complex patient more than 50% of the time was spent in counseling and care coordination. Past Medical History Past Medical History: Chest Pain / Angina, Diabetes Mellitus, Hypertension, Rheumatoid Arthritis (RA), Thyroid Disorder Additional Past Medical History / Comment(s): see DR Soriano H & P; long QT syndrome History of Any Multi-Drug Resistant Organisms: None Reported Additional Past Surgical History / Comment(s): Past Anesthesia/Blood Transfusion Reactions: Previous Problems w/ Anesthesia Additional Past Anesthesia/Blood Transfusion Reaction / Comment(s): difficulty waking up Past Psychological History: No Psychological Hx Reported Past Alcohol Use History: None Reported Past Drug Use History: None Reported - Past Family History Sister(s) Family Medical History: Myocardial Infarction ([place]) Father Family Medical History: Cancer Additional Family Medical History / Comment(s): father of lung cancer Mother Family Medical History: Cancer Additional Family Medical History / Comment(s): mother from breast cancer Daughter(s) Additional Family Medical History / Comment(s): daughter from SIDS Medications and Allergies Home Medications Medication Instructions Recorded Confirmed Type metFORMIN HCL [Glucophage] 1,000 mg PO BID-W/MEALS 09/08/16 08/03/23 History Albuterol Sulfate [Proair Hfa] 2 puff INHALATION RT-Q6H PRN 04/19/17 08/03/23 History Atorvastatin [Lipitor] 20 mg PO HS 04/19/17 08/03/23 History Albuterol Nebulized [Ventolin 2.5 mg INHALATION RT-Q6H 02/26/19 08/03/23 History Nebulized] Metoprolol Tartrate [Lopressor] 25 mg PO BID #60 tab 02/28/19 08/03/23 Rx Budesonide/Formoterol Fumarate 2 puff INHALATION RT-BID 08/03/23 08/03/23 History [Symbicort 160-4.5 Mcg Inhaler] Famotidine [Pepcid] 20 mg PO BID PRN 08/03/23 08/03/23 History Levothyroxine Sodium [Synthroid] 175 mcg PO DAILY 08/03/23 08/03/23 History Losartan Potassium 50 mg PO DAILY 08/03/23 08/03/23 History glipiZIDE [Glucotrol] 5 mg PO BID 08/03/23 08/03/23 History Allergies Allergy/AdvReac Type Severity Reaction Status Date / Time Latex, Natural Rubber Allergy Rash/Hives Verified 08/03/23 13:00 lactose AdvReac Diarrhea Verified 08/03/23 13:00 Penicillins AdvReac Nausea & Verified 08/03/23 13:00 Vomiting Physical Exam Vitals: Vital Signs Temp Pulse Resp BP Pulse Ox 08/03/23 14:13 98.2 F 08/03/23 14:00 90 21 133/87 95 08/03/23 11:30 20 84 L 08/03/23 11:27 102.4 F H 105 H 18 124/75 87 L Intake and Output 08/02/23 08/03/23 08/03/23 22:59 06:59 14:59 Other: Weight 202.302 kg Results CBC & Chem 7: 08/03/23 11:54 08/03/23 11:52 Labs: Abnormal Lab Results - Last 24 Hours (Table) 08/03/23 08/03/23 08/03/23 Range/Units 11:52 11:54 11:59 Lymphocytes # 0.7 L (1.0-4.8) k/uL Sodium 133 L (137-145) mmol/L Creatinine 1.08 H (0.52-1.04) mg/dL Glucose 126 H (74-99) mg/dL AST 94 H (14-36) U/L ALT 46 H (4-34) U/L Influenza Type A (PCR) Detected A (Not Detectd)
[2023-08-03] MEDS ORDERED: OSELTAMIVIR 75 MG CAP PO SCH (15:00)
[2023-08-03] MEDS: IPRATROPIUM-ALBUTEROL 3 ML NEB INHALATION SCH ×2 (15:04→20:01)
[2023-08-03] MEDS: methylPREDNISolone SOD SUCCI 40 MG/ML 1 ML VIAL IV SCH ×3 (15:09→23:47)
[2023-08-03] MEDS: NICOTINE 21MG/24HR PATCH TRANSDERM SCH (15:53)
[2023-08-03 17:12] LABS: Glucose,Whole Blood 119 mg/dL (70-110)
[2023-08-03] MEDS: INSULIN ASPART (NovoLOG) 100 UNIT/ML VIAL SQ SCH ×2 (17:29→21:08)
[2023-08-03] MEDS: SYMBICORT 160-4.5 MCG INHALER INHALATION SCH (20:01)
[2023-08-03 21:07] LABS: Glucose,Whole Blood 182 mg/dL (70-110)
[2023-08-03] MEDS: ATORVASTATIN 20 MG TAB PO SCH (21:16)
[2023-08-03] MEDS: METOPROLOL TARTRATE 25 MG TAB PO SCH (21:16)
[2023-08-03] MEDS: OSELTAMIVIR 60 MG/10 ML ORAL SYRINGE PO SCH (22:09)
[2023-08-04] MEDS ORDERED: AZITHROMYCIN 500 MG in SODIUM CHLORIDE 0.9% 250 ML IVPB STA (00:45)
--- NOTE | 2023-08-04 03:10 | P.CNPUL ---
History of Present Illness Consult date: 08/04/23 Requesting physician: [place] Reason for consult: COPD, other (Influenza A positive) Chief complaint: Shortness of breath, cough since last History of present illness: I am seeing this patient in consultation today August 04, 2023 in the emergency room after she presented with flulike symptoms that started last week. Patient is a 68-year-old -Spanish female with past medical history significant for COPD, ongoing tobacco dependence, hypertension, hyperlipidemia, hyp othyroidism, type 2 diabetes, morbid obesity, among other things. Her primary care provider is Megan Chang out of [place]. Her COPD is currently managed on a combination of Symbicort inhaler and as needed albuterol nebs and albuterol rescue inhaler. She smokes tobacco heavily, 2 packs/day. She has home O2, but does not routinely use it. Patient has been experiencing flulike symptoms that started last . Started off with a headache, cough, high fever, nausea with self-limiting vomiting. This progressively worsened, the patient is now short of breath and has a persistent productive cough with green sputum production. She has been using her rescue inhalers/nebs more frequently than normal with minimal improvement. She has also been generally weak, she is fallen multiple times. Stating her knees have just given out. Denies hitting her head or losing consciousness. On arrival to the emergency room yesterday morning she did test positive for influenza A. She is not vaccinated for influenza. Chest x-ray on arrival demonstrates bilateral interstitial infiltrates. NT proBNP mildly elevated at 1020. CBC on arrival unremarkable. No significant leukocytosis. BMP: Sodium 133, potassium 4.2, chloride 101, serum bicarb 24, BUN 15, creatinine 1.08, glucose 126. Lactic acid level 0.9. Troponin 0.018. Patient is currently resting in bed, on 4 L/min nasal cannula, in no acute distress. She is tolerating oral intake at this time. Currently afebrile, however, has a Tmax of 102.4 F on arrival. She has been started on Tamiflu. Vital signs are stable at this time. Review of Systems REVIEW OF SYSTEMS: CONSTITUTIONAL: Denies any recent significant weight loss or weight gain. Admits generalized weakness and malaise. Admits fevers. EYES: Denies change in vision. EARS, NOSE, MOUTH, THROAT: Denies headaches, denies sore throat. CARDIOVASCULAR: Denies chest pain, lower extremity swelling, orthopnea. Does admit occasional self-limiting heart palpitations. Denies any lightheadedness or syncopal episodes RESPIRATORY: See HPI GASTROINTESTINAL: Admits to reduced appetite. She also had some nausea and self-limiting vomiting on Tuesday. Emesis described as fluids that she drank earlier. Denies any abdominal pain. She has had ongoing diarrhea. GENITOURINARY: Denies hematuria, denies infections. MUSKULOSKELETAL: Denies pain, denies swelling. INTEGUMENTARY: Denies rash, denies eczema. NEUROLOGICAL: Denies recent memory loss, no recent seizure activity. PSYCHIATRIC: Denies anxiety, denies depression. HEMATOLOGIC/LYMPHATIC: Denies anemia, denies enlarged lymph node Past Medical History Past Medical History: Chest Pain / Angina, Diabetes Mellitus, Hypertension, Rheumatoid Arthritis (RA), Thyroid Disorder Additional Past Medical History / Comment(s): see DR Soriano H & P; long QT syndrome History of Any Multi-Drug Resistant Organisms: None Reported Additional Past Surgical History / Comment(s): Past Anesthesia/Blood Transfusion Reactions: Previous Problems w/ Anesthesia Additional Past Anesthesia/Blood Transfusion Reaction / Comment(s): difficulty waking up Past Psychological History: No Psychological Hx Reported Past Alcohol Use History: None Reported Past Drug Use History: None Reported - Past Family History Sister(s) Family Medical History: Myocardial Infarction ([place]) Father Family Medical History: Cancer Additional Family Medical History / Comment(s): father of lung cancer Mother Family Medical History: Cancer Additional Family Medical History / Comment(s): mother from breast cancer Daughter(s) Additional Family Medical History / Comment(s): daughter from SIDS Medications and Allergies Home Medications Medication Instructions Recorded Confirmed Type metFORMIN HCL [Glucophage] 1,000 mg PO BID-W/MEALS 09/08/16 08/03/23 History Albuterol Sulfate [Proair Hfa] 2 puff INHALATION RT-Q6H PRN 04/19/17 08/03/23 History Atorvastatin [Lipitor] 20 mg PO HS 04/19/17 08/03/23 History Albuterol Nebulized [Ventolin 2.5 mg INHALATION RT-Q6H 02/26/19 08/03/23 History Nebulized] Metoprolol Tartrate [Lopressor] 25 mg PO BID #60 tab 02/28/19 08/03/23 Rx Budesonide/Formoterol Fumarate 2 puff INHALATION RT-BID 08/03/23 08/03/23 History [Symbicort 160-4.5 Mcg Inhaler] Famotidine [Pepcid] 20 mg PO BID PRN 08/03/23 08/03/23 History Levothyroxine Sodium [Synthroid] 175 mcg PO DAILY 08/03/23 08/03/23 History Losartan Potassium 50 mg PO DAILY 08/03/23 08/03/23 History glipiZIDE [Glucotrol] 5 mg PO BID 08/03/23 08/03/23 History Allergies Allergy/AdvReac Type Severity Reaction Status Date / Time Latex, Natural Rubber Allergy Rash/Hives Verified 08/03/23 13:00 lactose AdvReac Diarrhea Verified 08/03/23 13:00 Penicillins AdvReac Nausea & Verified 08/03/23 13:00 Vomiting Physical Exam Vitals: Vital Signs Temp Pulse Resp BP BP Pulse Ox 08/03/23 21:15 109/67 08/03/23 20:41 19 08/03/23 20:12 90 08/03/23 20:02 88 08/03/23 15:17 96 08/03/23 15:08 90 08/03/23 14:13 98.2 F 08/03/23 14:00 90 21 133/87 95 08/03/23 11:30 20 84 L 08/03/23 11:27 102.4 F H 105 H 18 124/75 87 L Intake and Output 08/03/23 08/03/23 08/04/23 14:59 22:59 06:59 Other: # Voids 1 # Bowel Movements 0 Weight 202.302 kg GENERAL EXAM: Alert, 68-year-old -Spanish morbidly obese female, comfortable in no apparent distress. HEAD: Normocephalic and atraumatic EYES: Normal reaction of pupils, equal size. NOSE: Clear with pink turbinates. THROAT: No erythema or exudates. NECK: No masses, no JVD. CHEST: No chest wall deformity. LUNGS: Equal air entry with no crackles, wheeze, rhonchi or dullness. On 4 L/min nasal cannula. No conversational dyspnea or accessory muscle use.. CVS: S1 and S2 normal with no audible murmur, regular rhythm. No extra heart sounds ABDOMEN: No hepatosplenomegaly, active bowel sounds, no guarding or rigidity. SPINE: No scoliosis or deformity SKIN: No rashes CENTRAL NERVOUS SYSTEM: No focal deficits, tone is normal in all 4 extremities. EXTREMITIES: There is no peripheral edema, clubbing, or cyanosis. Peripheral p ulses are intact. Results - Laboratory Findings CBC and BMP: 08/03/23 11:54 08/03/23 11:52 PT/INR, D-dimer PT 11.3 sec (10.0-12.5) 08/03/23 11:52 INR 1.0 (<1.2) 08/03/23 11:52 Abnormal lab findings: Abnormal Labs 08/03/23 08/03/23 08/03/23 11:52 11:54 11:59 Lymphocytes # 0.7 L Sodium 133 L Creatinine 1.08 H Glucose 126 H POC Glucose (mg/dL) AST 94 H ALT 46 H Influenza Type A (PCR) Detected A 08/03/23 08/03/23 17:06 21:05 Lymphocytes # Sodium Creatinine Glucose POC Glucose (mg/dL) 119 H 182 H AST ALT Influenza Type A (PCR) - Diagnostic Findings Chest x-ray: image reviewed Assessment and Plan Assessment: Acute hypoxemic respiratory failure, secondary to exacerbation of COPD and influenza A infection with possible superimposed bacterial pneumonia being considered. Chest x-ray appears to show bilateral interstitial infiltrates, there is blurring of the left hemidiaphragm. Acute influenza A infection Acute kidney injury, related to dehydration [place] History of hypertension History of hyperlipidemia History of hypothyroidism Type 2 diabetes mellitus [id number] Chronic obstructive pulmonary disease Ongoing tobacco dependence Morbid obesity, with a BMI of 62.2 kg/m Plan: Patient's medications, labs, chest x-ray reviewed Continue supplemental oxygen, currently on 4 L/min nasal cannula Continue combination of bronchodilators and IV Solu-Medrol. Add Symbicort inhaler. Continue Tamiflu for 5 days I added empiric antibiotics. Check procalcitonin level and manage antibiotics accordingly. Smoking cessation counseling performed. Nicotine replacement offered. Will continue to follow I have personally seen and examined the patient, performed the documentation and the assessment and plan as written. Number of minutes spent on the visit:20 Time with Patient: Greater than 30
[2023-08-04] MEDS: methylPREDNISolone SOD SUCCI 40 MG/ML 1 ML VIAL IV SCH ×3 (05:40→17:44)
[2023-08-04] MEDS: LEVOTHYROXINE 88 MCG TAB PO SCH (05:40)
[2023-08-04 06:13] LABS: Appearance,Urine Cloudy (Clear); Bilirubin,Urine Negative (Negative); Blood,Urine Moderate (Negative); Color,Urine Yellow; Glucose,Urine (UA) Negative (Negative); Ketones,Urine Negative (Negative); Leukocyte Esterase,Urine Negative (Negative); Mucus,Urine Occasional /hpf; Nitrite,Urine Negative (Negative); PH, Urine 5.5 (5.0-8.0); Protein,Urine 1+ (Negative); RBC,Urine 7 /hpf (0-5); Specific Gravity,Urine 1.033 (1.001-1.035); Squamous Epithelial Cell,Urine 7 /hpf (0-4); Urobilinogen,Urine <2.0 mg/dL (<2.0); WBC,Urine 2 /hpf (0-5)
[2023-08-04 07:37] LABS: Glucose,Whole Blood 172 mg/dL (70-110)
[2023-08-04] MEDS: INSULIN ASPART (NovoLOG) 100 UNIT/ML VIAL SQ SCH ×4 (07:38→19:50)
[2023-08-04] MEDS: IPRATROPIUM-ALBUTEROL 3 ML NEB INHALATION SCH ×4 (07:57→20:18)
[2023-08-04] MEDS: SYMBICORT 160-4.5 MCG INHALER INHALATION SCH ×2 (08:00→20:18)
--- NOTE | 2023-08-04 08:11 | XR ---
EXAMINATION TYPE: XR chest 1V DATE OF EXAM: 08/04/2023 6:08 AM CLINICAL INDICATION:Female, 68 years old with history of chf; H COMPARISON: Chest radiograph from one day prior. TECHNIQUE: XR chest 1V Frontal view of the chest. FINDINGS: Lungs/Pleura: There is no evidence of pleural effusion, focal consolidation, or pneumothorax. Pulmonary vascularity: Pulmonary vascular congestion. Heart/mediastinum: Cardiomediastinal silhouette is enlarged and stable. Musculoskeletal: No acute osseous pathology. IMPRESSION: Cardiomegaly and mild pulmonary vascular congestion. Correlate with BNP for congestive heart failure.
[2023-08-04] MEDS ORDERED: FUROSEMIDE 10 MG/ML 4 ML VIAL IV STA (08:39)
[2023-08-04] MEDS ORDERED: FUROSEMIDE 10 MG/ML 2 ML VIAL IV ONE (09:00)
[2023-08-04] MEDS: LOSARTAN 50 MG TAB PO SCH (09:47)
[2023-08-04] MEDS: METOPROLOL TARTRATE 25 MG TAB PO SCH ×2 (09:47→19:56)
[2023-08-04] MEDS: NICOTINE 21MG/24HR PATCH TRANSDERM SCH (09:47)
[2023-08-04] MEDS: OSELTAMIVIR 60 MG/10 ML ORAL SYRINGE PO SCH ×2 (10:10→22:01)
[2023-08-04 11:22] LABS: Basophils # (A) 0.01 X 10*3/uL (0.00-0.10); Basophils % (A) 0.2 %; Eosinophils # (A) 0 X 10*3/uL (0.04-0.35); Eosinophils % (A) 0 %; HCT 39.3 % (37.2-46.3); HGB 12.7 g/dL (12.0-15.0); Lymphocytes # (A) 0.67 X 10*3/uL (0.90-5.00); MCH 28.9 pg (27.0-32.0); MCHC 32.3 g/dL (32.0-37.0); MCV 89.5 FL (80.0-97.0); Mean Platelet Volume 9.8 FL (9.5-12.2); Monocytes % (A) 6.7 %; NRBC Per 100 WBC 0 X 10*3/uL (0.00-0.01); Neutrophils # (A) 3.46 X 10*3/uL (1.80-7.70); Neutrophils % (A) 77.7 %; Platelet Count 192 X 10*3/uL (140-440); RBC 4.39 X 10*6/uL (4.10-5.20); RDW 14.5 % (11.5-14.5); WBC 4.46 X 10*3/uL (4.50-10.00)
[2023-08-04 11:42] LABS: ALT 41 U/L (8-44); AST 73 U/L (13-35); Albumin 3.6 g/dL (3.8-4.9); Albumin/Globulin Ratio 1.12 Ratio (1.60-3.17); Alkaline Phosphatase 95 U/L (41-126); Blood Urea Nitrogen 18.6 mg/dL (9.0-27.0); Calcium 8.6 mg/dL (8.7-10.3); Carbon Dioxide 25.5 mmol/L (21.6-31.8); Chloride 102 mmol/L (96-109); Globulin 3.2 g/dL (1.6-3.3); Glucose 207 mg/dL (70-110); Magnesium 2.1 mg/dL (1.5-2.4); Phosphorus 2.9 mg/dL (2.4-5.1); Potassium 4.8 mmol/L (3.5-5.5); Sodium 138 mmol/L (135-145); Total Bilirubin <0.2 mg/dL (0.3-1.2); Total Protein 6.8 g/dL (6.2-8.2)
[2023-08-04 12:27] LABS: Glucose,Whole Blood 175 mg/dL (70-110)
--- NOTE | 2023-08-04 13:35 | P.CRDCN ---
History of Present Illness Consult date: 08/04/23 Consult reason: congestive heart failure History of present illness: History of present illness: This is a 68-year-old female patient of Dr. Soriano with past medical history of hypertension, diabetes, hyperlipidemia, hypothyroidism, COPD, chronic hypoxic respiratory failure on home O2, tobacco use and dependence, morbid obesity with BMI of 62. We have been asked to evaluate the patient for CHF. Patient is seen today in the emergency center waiting for a bed on the [facility] floor. Patient states that she has had fever and chills, cough and shortness of breath. She states she also has had a little bit of edema. Patient also states that she has had weight gain over the past month. She denies having any previous cardiac surgeries. Patient is in isolation for influenza A. EKG sinus rhythm Chest x-ray: Cardiomegaly, mild pulmonary vascular congestion. WBC 4.4, hemoglobin 12.7, platelet 192. Electrolytes and renal function are nor mal. Blood sugar 207. Hemoglobin A1c 6.9. Magnesium 2.1. AST 73 otherwise liver function tests are normal. Influenza A detected. Influenza B, RSV, COVID-19 not detected. Troponin negative x 1. proBNP 1020. Home cardiac medications: Atorvastatin 20 mg at bedtime, losartan 50 mg daily, Lopressor 25 mg twice daily Echocardiogram performed 02/27/2019 revealed EF of 55 to 60%, mild concentric le ft ventricular hypertrophy, mild mitral vegetation, mild tricuspid regurgitation. Review Of Systems: At the time of my evaluation: Constitutional: + fever, + chills. No weakness, fatigue or lethargy. EENT: No headache. No dizziness. Lungs: + shortness of breath, + cough, no sputum production. + wheezing. Cardiovascular: No chest pain, no lower extremity edema. No palpitations. No paroxysmal nocturnal dyspnea. No orthopnea. No lightheadedness or dizziness. No syncopal episodes. Abdominal: No abdominal pain. No nausea, vomiting. No diarrhea. No constipation. No bloody or tarry stools. Musculoskeletal: No myalgias. No muscle weakness, no frequent falls. Integumentary: No wounds. No rash. No unusual bruising. Neurologic: No aphasia. No facial droop. No change in mentation. Physical examination: Gen: This is a 68-year-old morbidly obese female, appears to be in no acute distress. VS: reviewed HEENT: Head is atraumatic, normocephalic. Pupils equal, round. Sclerae is anicteric. NECK: Supple. No JVD. LUNGS: Bilateral wheezing. No intercostal retractions. HEART: Regular rate and rhythm. No murmur. ABDOMEN: Soft No tenderness. EXTREMITIES: No pedal edema. No calf tenderness. NEUROLOGICAL: Patient is awake, alert and oriented x3. Assessment: COPD exacerbation Pneumonia Influenza Possible mild diastolic heart failure CHF Plan: Resume patient's home cardiac medications Lasix 20 mg IV x 1] Obtain 2-D echocardiogram and Doppler study to assess cardiac structure and function Further recommendations to follow based upon clinical course Thank you kindly for this consultation. Nurse practitioner note has been reviewed, I agree with documented findings and plan of care. Patient was seen and examined. Past Medical History Past Medical History: Chest Pain / Angina, Diabetes Mellitus, Hypertension, Rheumatoid Arthritis (RA), Thyroid Disorder Additional Past Medical History / Comment(s): see DR Soriano H & P; long QT syndrome History of Any Multi-Drug Resistant Organisms: None Reported Additional Past Surgical History / Comment(s): Past Anesthesia/Blood Transfusion Reactions: Previous Problems w/ Anesthesia Additional Past Anesthesia/Blood Transfusion Reaction / Comment(s): difficulty waking up Past Psychological History: No Psychological Hx Reported Past Alcohol Use History: None Reported Past Drug Use History: None Reported - Past Family History Sister(s) Family Medical History: Myocardial Infarction ([place]) Father Family Medical History: Cancer Additional Family Medical History / Comment(s): father of lung cancer Mother Family Medical History: Cancer Additional Family Medical History / Comment(s): mother from breast cancer Daughter(s) Additional Family Medical History / Comment(s): daughter from SIDS Medications and Allergies Home Medications Medication Instructions Recorded Confirmed Type metFORMIN HCL [Glucophage] 1,000 mg PO BID-W/MEALS 09/08/16 08/03/23 History Albuterol Sulfate [Proair Hfa] 2 puff INHALATION RT-Q6H PRN 04/19/17 08/03/23 History Atorvastatin [Lipitor] 20 mg PO HS 04/19/17 08/03/23 History Albuterol Nebulized [Ventolin 2.5 mg INHALATION RT-Q6H 02/26/19 08/03/23 History Nebulized] Metoprolol Tartrate [Lopressor] 25 mg PO BID #60 tab 02/28/19 08/03/23 Rx Budesonide/Formoterol Fumarate 2 puff INHALATION RT-BID 08/03/23 08/03/23 History [Symbicort 160-4.5 Mcg Inhaler] Famotidine [Pepcid] 20 mg PO BID PRN 08/03/23 08/03/23 History Levothyroxine Sodium [Synthroid] 175 mcg PO DAILY 08/03/23 08/03/23 History Losartan Potassium 50 mg PO DAILY 08/03/23 08/03/23 History glipiZIDE [Glucotrol] 5 mg PO BID 08/03/23 08/03/23 History Allergies Allergy/AdvReac Type Severity Reaction Status Date / Time Latex, Natural Rubber Allergy Rash/Hives Verified 08/03/23 13:00 lactose AdvReac Diarrhea Verified 08/03/23 13:00 Penicillins AdvReac Nausea & Verified 08/03/23 13:00 Vomiting Physical Exam Vitals: Vital Signs Temp Pulse Resp BP BP Pulse Ox 08/04/23 08:08 73 08/04/23 07:57 76 08/04/23 02:00 97.9 F 18 112/62 95 08/03/23 21:15 109/67 08/03/23 20:41 19 08/03/23 20:12 90 08/03/23 20:02 88 08/03/23 15:17 96 08/03/23 15:08 90 08/03/23 14:13 98.2 F 08/03/23 14:00 90 21 133/87 95 08/03/23 11:30 20 84 L 08/03/23 11:27 102.4 F H 105 H 18 124/75 87 L Intake and Output 08/03/23 08/04/23 08/04/23 22:59 06:59 14:59 Other: # Voids 1 # Bowel Movements 0 Results 08/04/23 06:48 08/04/23 06:48 Cardiac Enzymes 08/03/23 08/03/23 Range/Units 11:52 11:52 AST 94 H (14-36) U/L Troponin I 0.018 (0.000-0.034) ng/mL Coagulation 08/03/23 Range/Units 11:52 PT 11.3 (10.0-12.5) sec APTT 28.2 (22.0-30.0) sec CBC 08/03/23 Range/Units 11:54 WBC 6.3 (3.8-10.6) k/uL RBC 4.56 (3.80-5.40) m/uL Hgb 13.8 (11.4-16.0) gm/dL Hct 41.8 (34.0-46.0) % Plt Count 189 (150-450) k/uL Comprehensive Metabolic Panel 08/03/23 Range/Units 11:52 Sodium 133 L (137-145) mmol/L Potassium 4.2 (3.5-5.1) mmol/L Chloride 101 (98-107) mmol/L Carbon Dioxide 24 (22-30) mmol/L BUN 15 (7-17) mg/dL Creatinine 1.08 H (0.52-1.04) mg/dL Glucose 126 H (74-99) mg/dL Calcium 8.8 (8.4-10.2) mg/dL AST 94 H (14-36) U/L ALT 46 H (4-34) U/L Alkaline Phosphatase 106 (38-126) U/L Total Protein 7.6 (6.3-8.2) g/dL Albumin 4.0 (3.5-5.0) g/dL Current Medications Generic Name Dose Route Start Last Admin Trade Name Freq PRN Reason Stop Dose Admin Acetaminophen 650 mg 08/03/23 14:08 Acetaminophen Tab 325 Mg Tab PO Q6HR PRN Mild Pain or Fever > 100.5 Albuterol/Ipratropium 3 ml 08/03/23 14:08 Ipratropium-Albuterol 3 Ml Neb INHALATION RT-QID PRN Shortness Of Breath Or Wheezing Albuterol/Ipratropium 3 ml 08/03/23 16:00 08/04/23 07:57 Ipratropium-Albuterol 3 Ml Neb INHALATION 3 ml RT-QID VILMA Administration Atorvastatin Calcium 20 mg 08/03/23 21:00 08/03/23 21:16 Atorvastatin 20 Mg Tab PO 20 mg HS VILMA Administration Budesonide/Formoterol Fumarate 2 puff 08/03/23 20:00 08/04/23 08:00 Symbicort 160-4.5 Mcg Inhaler INHALATION 2 puff RT-BID VILMA Administration Dextrose/Water 25 ml 08/03/23 14:53 Dextrose 50% Syringe 50 Ml IVP PER PROTOCOL PRN Hypoglycemia Protocol Dextrose/Water 50 ml 08/03/23 14:53 Dextrose 50% Syringe 50 Ml IVP PER PROTOCOL PRN Hypoglycemia Protocol Famotidine 20 mg 08/03/23 14:50 Famotidine 20 Mg Tab PO BID PRN GI Upset Azithromycin 500 mg/ Sodium 250 mls @ 250 mls/hr 08/05/23 01:00 Chloride IVPB 08/07/23 01:59 DAILY@0100 [facility] Protocol Ceftriaxone Sodium 1 gm/ 50 mls @ 100 mls/hr 08/05/23 01:00 Sodium Chloride IVPB Q24H [facility] Protocol Insulin Aspart 0 unit 08/03/23 17:30 08/04/23 07:38 Insulin Aspart (Novolog) 100 Unit/Ml Vial SQ Not Given ACHS [facility] Protocol Levothyroxine Sodium 176 mcg 08/04/23 06:30 08/04/23 05:40 Levothyroxine 88 Mcg Tab PO 176 mcg 0630 [facility] Administration Losartan Potassium 50 mg 08/04/23 09:00 Losartan 50 Mg Tab PO DAILY [facility] Methylprednisolone Sodium Succinate 40 mg 08/03/23 15:00 08/04/23 05:40 Methylprednisolone Sod Succi 40 Mg/Ml 1 Ml Vial IV 40 mg Q6HR [facility] Administration Metoprolol Tartrate 25 mg 08/03/23 21:00 08/03/23 21:16 Metoprolol Tartrate 25 Mg Tab PO 25 mg BID [facility] Administration Morphine Sulfate 4 mg 08/03/23 14:08 08/04/23 05:41 Morphine Sulfate 4 Mg/Ml Syringe IV 4 mg Q4HR PRN Administration Severe Pain (Scale 7 to 10) Naloxone HCl 0.2 mg 08/03/23 14:08 Naloxone 0.4 Mg/Ml 1 Ml Vial IV Q2M PRN Opioid Reversal Nicotine 1 patch 08/03/23 15:00 08/03/23 15:53 Nicotine 21mg/24hr Patch TRANSDERM 1 patch DAILY [facility] Administration Nicotine Polacrilex 2 mg 08/03/23 14:54 Nicotine Gum (Polacrilex) 2 Mg Gum BUCCAL Q2HR PRN Nicotine Cravings Ondansetron HCl 4 mg 08/03/23 14:08 Ondansetron 4 Mg/2 Ml Vial IVP Q8HR PRN Nausea And Vomiting Oseltamivir Phosphate 30 mg 08/03/23 21:00 08/03/23 22:09 Oseltamivir 60 Mg/10 Ml Oral Syringe PO 08/07/23 21:01 30 mg Q12HR [facility]IL[facility] Administration Protocol Intake and Output 08/03/23 08/04/23 08/04/23 22:59 06:59 14:59 Other: # Voids 1 # Bowel Movements 0 08/03/23 11:54 08/03/23 11:52
--- NOTE | 2023-08-04 14:46 | P.PN ---
Subjective Progress Note Date: 08/04/23 Hospital Course: 68-year-old female with history of hypertension, dyslipidemia, hypothyroidism, type 2 diabetes, COPD presenting with shortness of breath and flulike symptoms. In the ED, temperature was 102.4, pulse 105, respiratory rate 18, blood pressure 124/75, saturating at 84% on room air. WBC 6.3, hemoglobin 13.8, sodium 133, creatinine 1.08, glucose 126, total bili 0.5, AST 34, ALT 46, ALP 106, troponin 0.018, proBNP 1000, influenza A positive. Chest x-ray independently interpreted, shows bilateral interstitial opacities more prominent at the bases. EKG independently interpreted shows normal sinus rhythm. Patient received a total of 1 L of normal saline in the ED. patient being admitted for acute hypoxic respiratory failure in the setting of influenza infection. Subjective: Patient seen and examined at bedside. No acute events overnight. Feeling a lot better today. Pertinent positives and negatives as discussed above, a complete review of systems was performed and all other systems are negative. Vitals Signs Reviewed. General: Nontoxic, no distress, appears at stated age Derm: Warm, dry Head: Atraumatic, normocephalic, symmetric Eyes: EOMI, no lid lag, anicteric sclera Mouth: No lip lesion, mucus membranes moist Cardiovascular: S1S2 reg, no murmur Lungs: CTA bilateral, no rhonchi, no rales, no accessory muscle use Abdominal: Soft, nontender to palpation, no guarding, no appreciable organomegaly Ext: No gross muscle atrophy, no edema, no contractures Neuro: CN II-XI grossly intact, no focal neuro deficits Psych: Alert, oriented, appropriate affect Data Reviewed Today: Pertinent Labs: WBC 4.46, hemoglobin 12.7, creatinine 1.0, glucose range between 170-207, A1c 6.9 Imaging: Assessment and Plan: Active: Acute hypoxic respiratory failure Sepsis secondary to Influenza A infection Suspected superimposed community-acquired pneumonia Acute COPD exacerbation Mild diastolic CHF exacerbation -Pulmonology note reviewed, also started on azithromycin and ceftriaxone -Continue to wean oxygen -Tamiflu 75 p.o. every 12 hours 10 doses -DuoNeb scheduled and as needed, continue home Symbicort twice daily -Solu-Medrol 40 IV every 6 hours -daily weights, intake and output -Cardiology note reviewed, echocardiogram pending, Lasix 20 IV once, and another 40 IV given by pulmonology -Continue patient on telemetry Type 2 diabetes -Sliding scale insulin, monitor for hypoglycemia Nicotine dependence -Counseled regarding smoking cessation -21 mg patch nicotine daily ordered Chronic: Dyslipidemia Hypertension Hypothyroidism DVT ppx: Subcu Lovenox Code status: Full code Anticipated discharge place: Pending clinical course Anticipated discharge time: Pending clinical course Objective - Vital Signs Vital signs: Vital Signs Temp 98 F 08/04/23 08:10 Pulse 74 08/04/23 08:10 Resp 18 08/04/23 08:10 BP 115/65 08/04/23 08:10 Pulse Ox 94 L 08/04/23 08:10 FiO2 Intake & Output 08/03/23 08/04/23 08/04/23 18:59 06:59 18:59 Weight 202.302 kg Other: # Voids 1 # Bowel Movements 0 - Labs CBC & Chem 7: 08/04/23 06:48 08/04/23 06:48 Labs: Abnormal Lab Results - Last 24 Hours (Table) 08/03/23 08/03/23 08/03/23 Range/Units 11:52 17:06 21:05 WBC (4.50-10.00) X 10*3/uL Lymphocytes # (0.90-5.00) X 10*3/uL Eosinophils # (0.04-0.35) X 10*3/uL Glucose (70-110) mg/dL POC Glucose (mg/dL) 119 H 182 H (70-110) mg/dL Hemoglobin A1c (<=6.0) % Calcium (8.7-10.3) mg/dL Total Bilirubin (0.3-1.2) mg/dL AST (13-35) U/L Albumin (3.8-4.9) g/dL Albumin/Globulin Ratio (1.60-3.17) Ratio Procalcitonin 0.33 H (0.02-0.09) ng/mL Urine Appearance (Clear) Urine Protein (Negative) Urine Blood (Negative) Urine RBC (0-5) /hpf Ur Squamous Epith Cells (0-4) /hpf Urine Mucus (None) /hpf 08/04/23 08/04/23 08/04/23 Range/Units 05:50 06:48 06:48 WBC 4.46 L (4.50-10.00) X 10*3/uL Lymphocytes # 0.67 L (0.90-5.00) X 10*3/uL Eosinophils # 0 L (0.04-0.35) X 10*3/uL Glucose (70-110) mg/dL POC Glucose (mg/dL) (70-110) mg/dL Hemoglobin A1c 6.9 H (<=6.0) % Calcium (8.7-10.3) mg/dL Total Bilirubin (0.3-1.2) mg/dL AST (13-35) U/L Albumin (3.8-4.9) g/dL Albumin/Globulin Ratio (1.60-3.17) Ratio Procalcitonin (0.02-0.09) ng/mL Urine Appearance Cloudy H (Clear) Urine Protein 1+ H (Negative) Urine Blood Moderate H (Negative) Urine RBC 7 H (0-5) /hpf Ur Squamous Epith Cells 7 H (0-4) /hpf Urine Mucus Occasional H (None) /hpf 08/04/23 08/04/23 08/04/23 Range/Units 06:48 07:34 12:21 WBC (4.50-10.00) X 10*3/uL Lymphocytes # (0.90-5.00) X 10*3/uL Eosinophils # (0.04-0.35) X 10*3/uL Glucose 207 H (70-110) mg/dL POC Glucose (mg/dL) 172 H 175 H (70-110) mg/dL Hemoglobin A1c (<=6.0) % Calcium 8.6 L (8.7-10.3) mg/dL Total Bilirubin <0.2 L (0.3-1.2) mg/dL AST 73 H (13-35) U/L Albumin 3.6 L (3.8-4.9) g/dL Albumin/Globulin Ratio 1.12 L (1.60-3.17) Ratio Procalcitonin (0.02-0.09) ng/mL Urine Appearance (Clear) Urine Protein (Negative) Urine Blood (Negative) Urine RBC (0-5) /hpf Ur Squamous Epith Cells (0-4) /hpf Urine Mucus (None) /hpf
[2023-08-04 16:55] LABS: Glucose,Whole Blood 231 mg/dL (70-110)
[2023-08-04] MEDS: metFORMIN 500 MG TAB PO SCH (19:42)
[2023-08-04 19:46] LABS: Glucose,Whole Blood 229 mg/dL (70-110)
[2023-08-04] MEDS: glipiZIDE 5 MG TAB PO SCH (19:55)
[2023-08-04] MEDS: ATORVASTATIN 20 MG TAB PO SCH (19:56)
[2023-08-04 20:59] VITALS: RESP 18
[2023-08-05] MEDS: methylPREDNISolone SOD SUCCI 40 MG/ML 1 ML VIAL IV SCH ×3 (00:24→11:40)
[2023-08-05] MEDS ORDERED: AZITHROMYCIN 500 MG in SODIUM CHLORIDE 0.9% 250 ML IVPB SCH (01:00)
[2023-08-05 05:50] LABS: Glucose,Whole Blood 110 mg/dL (70-110)
[2023-08-05] MEDS: INSULIN ASPART (NovoLOG) 100 UNIT/ML VIAL SQ SCH ×2 (05:53→11:43)
[2023-08-05] MEDS: metFORMIN 500 MG TAB PO SCH (06:44)
[2023-08-05] MEDS: LEVOTHYROXINE 88 MCG TAB PO SCH (06:44)
[2023-08-05] MEDS: NICOTINE 21MG/24HR PATCH TRANSDERM SCH (08:44)
[2023-08-05] MEDS: glipiZIDE 5 MG TAB PO SCH (08:44)
[2023-08-05] MEDS: ENOXAPARIN 40 MG/0.4 ML SYRINGE SQ SCH ×2 (08:44→09:37)
[2023-08-05] MEDS: LOSARTAN 50 MG TAB PO SCH (08:47)
[2023-08-05] MEDS: METOPROLOL TARTRATE 25 MG TAB PO SCH (08:47)
[2023-08-05] MEDS: SYMBICORT 160-4.5 MCG INHALER INHALATION SCH (09:09)
[2023-08-05] MEDS: IPRATROPIUM-ALBUTEROL 3 ML NEB INHALATION SCH ×2 (09:09→12:02)
--- NOTE | 2023-08-05 09:53 | CA ---
Transthoracic Echo Report Name: Ne Saenz Age: 68 Gender: F : 1955 Exam Date: 08/04/2023 12:33 Exam Location: [facility] Ht (in): 71 Wt (lb): 446 Ordering Physician: Lake Mallory MD Attending/Referring Phys: Signal Operator Technical Kat Bennett RDCS Procedure CPT: Indications: chf? Cardiac Hx: Technical Quality: Technically difficult study Contrast 1: Definity Total Dose (mL): 2 Contrast 2: Total Dose (mL): MEASUREMENTS (Male / Female) Normal Values 2D ECHO LV Diastolic Diameter PLAX 4.4 cm 4.2 - 5.9 / 3.9 - 5.3 cm LV Systolic Diameter PLAX 2.7 cm IVS Diastolic Thickness 1.0 cm 0.6 - 1.0 / 0.6 - 0.9 cm LVPW Diastolic Thickness 1.1 cm 0.6 - 1.0 / 0.6 - 0.9 cm LV Relative Wall Thickness 0.5 RV Internal Dim ED PLAX 3.3 cm LVOT Diameter 2.3 cm Aortic Root Diameter 3.0 cm LA Systolic Diameter LX 2.5 cm 3.0 - 4.0 / 2.7 - 3.8 cm LA Volume 34.5 cm??? 18 - 58 / 22 - 52 cm??? LA Volume Index 10.4 cm???/m??? 16 - 28 cm???/m??? DOPPLER AV Peak Velocity 104.5 cm/s AV Peak Gradient 4.4 mmHg MV Peak Velocity 96.8 cm/s MV Peak Gradient 3.7 mmHg MV Mean Velocity 52.3 cm/s MV Mean Gradient 1.3 mmHg MV Velocity Time Integral 37.7 cm Mitral E Point Velocity 86.7 cm/s Mitral A Point Velocity 67.9 cm/s Mitral E to A Ratio 1.3 MV Deceleration Time 253.6 ms TR Peak Velocity 211.2 cm/s TR Peak Gradient 17.8 mmHg Right Ventricular Systolic Press 22.8 mmHg PV Peak Velocity 91.3 cm/s PV Peak Gradient 3.3 mmHg FINDINGS Left Ventricle Normal LV size and wall thickness. Ejection fraction is at 50% Right Ventricle Mild right ventricular dilatation. RVSP= 23mmHg. Right Atrium Normal right atrial size. Left Atrium Normal left atrial size. Mitral Valve Structurally normal mitral valve. No mitral stenosis. No mitral regurgitation. Aortic Valve Trileaflet aortic valve. No aortic stenosis. No aortic regurgitation. Tricuspid Valve Tricuspid valve not well visualized. Mild TR. Pulmonic Valve Pulmonic valve not well visualized. Mild PI. Pericardium Not well visualized. Grossly normal. Aorta Normal size aortic root. CONCLUSIONS Technically difficult and limited views. Low-normal of the systolic function. The EF is at 50% Previewed by: Dr. Konstantin Santacruz MD (Electronically Signed) Final Date: 05 August 2023 09:52
[2023-08-05] MEDS: OSELTAMIVIR 60 MG/10 ML ORAL SYRINGE PO SCH (09:59)
--- NOTE | 2023-08-05 11:28 | P.PN ---
Subjective Progress Note Date: 08/05/23 Consult reason: congestive heart failure History of present illness: History of present illness: This is a 68-year-old female patient of Dr. Soriano with past medical history of hypertension, diabetes, hyperlipidemia, hypothyroidism, COPD, chronic hypoxic respiratory failure on home O2, tobacco use and dependence, morbid obesity with BMI of 62. We have been asked to evaluate the patient for CHF. Patient is seen today in the emergency center waiting for a bed on the [facility] floor. Patient states that she has had fever and chills, cough and shortness of breath. She states she also has had a little bit of edema. Patient also states that she has had weight gain over the past month. She denies having any previous cardiac surgeries. Patient is in isolation for influenza A. EKG sinus rhythm Chest x-ray: Cardiomegaly, mild pulmonary vascular congestion. WBC 4.4, hemoglobin 12.7, platelet 192. Electrolytes and renal function are normal. Blood sugar 207. Hemoglobin A1c 6.9. Magnesium 2.1. AST 73 otherwise liver function tests are normal. Influenza A detected. Influenza B, RSV, COVID-19 not detected. Troponin negative x 1. proBNP 1020. Home cardiac medications: Atorvastatin 20 mg at bedtime, losartan 50 mg daily, Lopressor 25 mg twice daily Echocardiogram performed 02/27/2019 revealed EF of 55 to 60%, mild concentric left ventricular hypertrophy, mild mitral vegetation, mild tricuspid regurgitation. 08/05 Patient is seen today on the [facility] floor in follow-up. Patient states that her breathing is better. She denies having any chest pain. Yesterday she received 1 dose of IV Lasix 20 mg. Patient states she is walking okay without difficulty. Blood pressure noted to be on the lower side 115/68, heart rate in the 70s and 80s. Echocardiogram reveals EF of 50%, technically difficult and limited views. Physical examination: Gen: This is a 68-year-old morbidly obese female, appears to be in no acute distress. VS: reviewed HEENT: Head is atraumatic, normocephalic. Pupils equal, round. Sclerae is anicteric. NECK: Supple. No JVD. LUNGS: Minimal wheezing. No intercostal retractions. HEART: Regular rate and rhythm. No murmur. ABDOMEN: Soft No tenderness. EXTREMITIES: No pedal edema. No calf tenderness. NEUROLOGICAL: Patient is awake, alert and oriented x3. Assessment: COPD exacerbation Pneumonia Influenza Possible mild diastolic heart failure CHF Plan: Continue patient's home cardiac medications Start patient on low-dose of diuretic 20 mg daily oral Cardiology will sign off this case and follow on an as-needed basis. Please reconsult for any new concerns. Patient may follow-up in the office in one to 2 weeks. Nurse practitioner note has been reviewed, I agree with documented findings and plan of care. Patient was seen and examined. Objective - Vital Signs Vital signs: Vital Signs Temp 97.5 F L 08/05/23 07:22 Pulse 63 08/05/23 07:22 Resp 18 08/05/23 07:22 BP 98/66 08/05/23 07:22 Pulse Ox 90 L 08/05/23 07:22 FiO2 Intake & Output 08/04/23 08/05/23 08/05/23 18:59 06:59 18:59 Weight 164.5 kg Other: # Voids 4 - Labs CBC & Chem 7: 08/04/23 06:48 08/04/23 06:48 Labs: Abnormal Lab Results - Last 24 Hours (Table) 08/04/23 08/04/23 08/04/23 Range/Units 06:48 06:48 06:48 WBC 4.46 L (4.50-10.00) X 10*3/uL Lymphocytes # 0.67 L (0.90-5.00) X 10*3/uL Eosinophils # 0 L (0.04-0.35) X 10*3/uL Glucose 207 H (70-110) mg/dL POC Glucose (mg/dL) (70-110) mg/dL Hemoglobin A1c 6.9 H (<=6.0) % Calcium 8.6 L (8.7-10.3) mg/dL Total Bilirubin <0.2 L (0.3-1.2) mg/dL AST 73 H (13-35) U/L Albumin 3.6 L (3.8-4.9) g/dL Albumin/Globulin Ratio 1.12 L (1.60-3.17) Ratio 08/04/23 08/04/23 08/04/23 Range/Units 12:21 16:52 19:44 WBC (4.50-10.00) X 10*3/uL Lymphocytes # (0.90-5.00) X 10*3/uL Eosinophils # (0.04-0.35) X 10*3/uL Glucose (70-110) mg/dL POC Glucose (mg/dL) 175 H 231 H 229 H (70-110) mg/dL Hemoglobin A1c (<=6.0) % Calcium (8.7-10.3) mg/dL Total Bilirubin (0.3-1.2) mg/dL AST (13-35) U/L Albumin (3.8-4.9) g/dL Albumin/Globulin Ratio (1.60-3.17) Ratio Microbiology - Last 24 Hours (Table) 08/03/23 11:52 Blood Culture - Preliminary Blood
[2023-08-05] MEDS ORDERED: FUROSEMIDE 20 MG TAB PO SCH (11:30)
[2023-08-05 11:46] LABS: Glucose,Whole Blood 152 mg/dL (70-110)
--- NOTE | 2023-08-05 13:01 | P.PN ---
Subjective Progress Note Date: 08/05/23 I am seeing this patient in consultation today August 04, 2023 in the emergency room after she presented with flulike symptoms that started last week. Patient is a 68-year-old -[place] female with past medical history significant for COPD, ongoing tobacco dependence, hypertension, hyperlipidemia, hypothyroidism, type 2 diabetes, morbid obesity, among other things. Her primary care provider is Megan Chang out of [place]. Her COPD is currently managed on a combination of Symbicort inhaler and as needed albuterol nebs and albuterol rescue inhaler. She smokes tobacco heavily, 2 packs/day. She has home O2, but does not routinely use it. Patient has been experiencing flulike symptoms that started last . Started off with a headache, cough, high fever, nausea with self-limiting vomiting. This progressively worsened, the patient is now short of breath and has a persistent productive cough with green sputum production. She has been using her rescue inhalers/nebs more frequently than normal with minimal improvement. She has also been generally weak, she is fallen multiple times. Stating her knees have just given out. Denies hitting her head or losing consciousness. On arrival to the emergency room yesterday morning she did test positive for influenza A. She is n ot vaccinated for influenza. Chest x-ray on arrival demonstrates bilateral interstitial infiltrates. NT proBNP mildly elevated at 1020. CBC on arrival unremarkable. No significant leukocytosis. BMP: Sodium 133, potassium 4.2, chloride 101, serum bicarb 24, BUN 15, creatinine 1.08, glucose 126. Lactic acid level 0.9. Troponin 0.018. Patient is currently resting in bed, on 4 L/min nasal cannula, in no acute distress. She is tolerating oral intake at this time. Currently afebrile, however, has a Tmax of 102.4 F on arrival. She has been started on Tamiflu. Vital signs are stable at this time. The patient is seen today August 05, 2023 and follow-up on the regular medical floor. She is currently sitting up in bed. Awake and alert in no acute distress. Feeling quite a bit better today compared to yesterday. She is maintaining O2 saturations in the 90s on room air. She is afebrile. Hemodynamically stable. Blood cultures revealing no growth to date. Blood sugar 152. She is continued on DuoNeb and elations, Symbicort, Solu-Medrol. Antibiotics in form of ceftriaxone and azithromycin. Lovenox for DVT prophylaxis. Remains on oral diuretics. Remains on NicoDerm patch. Continued on Tamiflu. Objective - Vital Signs Vital signs: Vital Signs Temp 97.5 F L 08/05/23 07:22 Pulse 80 08/05/23 12:14 Resp 18 08/05/23 08:52 BP 115/68 08/05/23 08:52 Pulse Ox 90 L 08/05/23 07:22 FiO2 Intake & Output 08/04/23 08/05/23 08/05/23 18:59 06:59 18:59 Weight 164.5 kg Other: Voiding Method Toilet # Voids 4 - Exam GENERAL EXAM: Alert, 68-year-old morbidly obese female, on room air, comfortable in no apparent distress. HEAD: Normocephalic and atraumatic EYES: Normal reaction of pupils, equal size. NOSE: Clear with pink turbinates. THROAT: No erythema or exudates. NECK: No masses, no JVD. CHEST: No chest wall deformity. LUNGS: Equal air entry with no crackles, wheeze, rhonchi or dullness. No conversational dyspnea. CVS: S1 and S2 normal with no audible murmur, regular rhythm. No extra heart sounds ABDOMEN: No hepatosplenomegaly, active bowel sounds, no guarding or rigidity. SPINE: No scoliosis or deformity SKIN: No rashes CENTRAL NERVOUS SYSTEM: No focal deficits, tone is normal in all 4 extremities. EXTREMITIES: There is no peripheral edema, clubbing, or cyanosis. Peripheral pulses are intact. - Labs CBC & Chem 7: 08/04/23 06:48 08/04/23 06:48 Labs: Abnormal Lab Results - Last 24 Hours (Table) 08/04/23 08/04/23 08/05/23 Range/Units 16:52 19:44 11:45 POC Glucose (mg/dL) 231 H 229 H 152 H (70-110) mg/dL Microbiology - Last 24 Hours (Table) 08/03/23 11:52 Blood Culture - Preliminary Blood Assessment and Plan Assessment: Acute hypoxemic respiratory failure, secondary to exacerbation of COPD and influenza A infection with possible superimposed bacterial pneumonia being considered. Chest x-ray appears to show bilateral interstitial infiltrates, there is blurring of the left hemidiaphragm. Acute influenza A infection Acute kidney injury, related to dehydration Falls History of hypertension History of hyperlipidemia History of hypothyroidism Type 2 diabetes mellitus [id number] Chronic obstructive pulmonary disease Ongoing tobacco dependence Morbid obesity, with a BMI of 62.2 kg/m Plan: The patient was seen and evaluated Labs and medications reviewed Stable on room air Cleared for discharge from the pulmonary standpoint Complete a course of antibiotics Complete a prednisone taper Complete a course of Tamiflu Continue her home pulmonary medications Follow-up in our office in 1 week This patient was seen independently by the pulmonary nurse practitioner addressing pulmonary issues I have personally seen and examined the patient, performed the documentation and the assessment and plan as written. Number of minutes spent on the visit: 24.
[2023-08-05 14:00] VITALS: BP 92/58; PULSE 65; TEMP 97.4
--- NOTE | 2023-08-05 14:30 | P.DS ---
Providers Date of admission: 08/03/23 14:12 Expected date of discharge: 08/05/23 Attending physician: Martell Tiwari MD Consults: 08/03/23 14:08 Consult Physician Routine Consulting Provider: Bryan Sullivan Consult Reason/Comments: chf Do you want consulting provider notified?: Yes 08/03/23 14:49 Consult Physician Routine Consulting Provider: Gillian Macias Consult Reason/Comments: COPD exacerbation, influenza A Do you want consulting provider notified?: Yes Primary care physician: [facility] Course: Discharge Diagnosis: Acute hypoxic respiratory failure Sepsis secondary to Influenza A infection Superimposed community-acquired pneumonia Acute COPD exacerbation Mild diastolic CHF exacerbation Type 2 diabetes Nicotine dependence Hospital Course: 68-year-old female with history of hypertension, dyslipidemia, hypothyroidism, type 2 diabetes, COPD presenting with shortness of breath and flulike symptoms. In the ED, temperature was 102.4, pulse 105, respiratory rate 18, blood pressure 124/75, saturating at 84% on room air. WBC 6.3, hemoglobin 13.8, sodium 133, creatinine 1.08, glucose 126, total bili 0.5, AST 34, ALT 46, ALP 106, troponin 0.018, proBNP 1000, influenza A positive. Chest x-ray independently interpreted, shows bilateral interstitial opacities more prominent at the bases. EKG independently interpreted shows normal sinus rhythm. Patient received a total of 1 L of normal saline in the ED. patient being admitted for acute hypoxic respiratory failure in the setting of influenza infection. Respiratory function is stable at the time of discharge. Echocardiogram showed LVEF of 50%. Cardiology recommended continuing small dose of oral diuretics. Patient was also started on antibiotics for concern of superimposed bacterial pneumonia. Being discharged on oral antibiotics, steroid taper, and oral diuretics. Follow-up with pulmonology and PCP. Patient seen and examined at bedside. Vital signs reviewed and stable. General: Nontoxic, no distress, appears at stated age Derm: Warm, dry Head: Atraumatic, normocephalic, symmetric Eyes: EOMI, no lid lag, anicteric sclera Mouth: No lip lesion, mucus membranes moist Cardiovascular: S1S2 reg, no murmur Lungs: CTA bilateral, no rhonchi, no rales, no accessory muscle use Abdominal: Soft, nontender to palpation, no guarding, no appreciable organomegaly Ext: No gross muscle atrophy, no edema, no contractures Neuro: CN II-XI grossly intact, no focal neuro deficits Psych: Alert, oriented, appropriate affect A total of 33 minutes of time were spent preparing this complex discharge summary. Patient was discharged on 08/05/23 at 1426. Patient Condition at Discharge: Stable Plan - Discharge Summary New Discharge Prescriptions: New Cefdinir 300 mg PO Q12HR #6 cap Furosemide [Lasix] 20 mg PO DAILY #60 tab methylPREDNISolone Dose Pack [Medrol Dose Pack] 4 mg PO DIRECTED #1 packet Oseltamivir 6Mg/ml Oral Susp [Tamiflu] 30 mg PO Q12HR #6 each Nicotine 21Mg/24Hr Patch [Habitrol] 1 patch TRANSDERM DAILY #14 patch Azithromycin [Zithromax Tri-Jasper (3 tabs)] 500 mg PO DAILY 1 Days #1 tab Continue metFORMIN HCL [Glucophage] 1,000 mg PO BID-W/MEALS Albuterol Sulfate [Proair Hfa] 2 puff INHALATION RT-Q6H PRN PRN Reason: Shortness Of Breath Atorvastatin [Lipitor] 20 mg PO HS Albuterol Nebulized [Ventolin Nebulized] 2.5 mg INHALATION RT-Q6H Metoprolol Tartrate [Lopressor] 25 mg PO BID #60 tab Budesonide/Formoterol Fumarate [Symbicort 160-4.5 Mcg Inhaler] 2 puff INHALATION RT-BID Famotidine [Pepcid] 20 mg PO BID PRN PRN Reason: Gi Upset Losartan Potassium 50 mg PO DAILY glipiZIDE [Glucotrol] 5 mg PO BID Levothyroxine Sodium [Synthroid] 175 mcg PO DAILY Discharge Medication List metFORMIN HCL [Glucophage] 1,000 mg PO BID-W/MEALS 09/08/16 [History] Albuterol Sulfate [Proair Hfa] 2 puff INHALATION RT-Q6H PRN 04/19/17 [History] Atorvastatin [Lipitor] 20 mg PO HS 04/19/17 [History] Albuterol Nebulized [Ventolin Nebulized] 2.5 mg INHALATION RT-Q6H 02/26/19 [History] Metoprolol Tartrate [Lopressor] 25 mg PO BID #60 tab 02/28/19 [Rx] Budesonide/Formoterol Fumarate [Symbicort 160-4.5 Mcg Inhaler] 2 puff INHALATION RT-BID 08/03/23 [History] Famotidine [Pepcid] 20 mg PO BID PRN 08/03/23 [History] Levothyroxine Sodium [Synthroid] 175 mcg PO DAILY 08/03/23 [History] Losartan Potassium 50 mg PO DAILY 08/03/23 [History] glipiZIDE [Glucotrol] 5 mg PO BID 08/03/23 [History] Azithromycin [Zithromax Tri-Jasper (3 tabs)] 500 mg PO DAILY 1 Days #1 tab 08/05/23 [Rx] Cefdinir 300 mg PO Q12HR #6 cap 08/05/23 [Rx] Furosemide [Lasix] 20 mg PO DAILY #60 tab 08/05/23 [Rx] Nicotine 21Mg/24Hr Patch [Habitrol] 1 patch TRANSDERM DAILY #14 patch 08/05/23 [Rx] Oseltamivir 6Mg/ml Oral Susp [Tamiflu] 30 mg PO Q12HR #6 each 08/05/23 [Rx] methylPREDNISolone Dose Pack [Medrol Dose Pack] 4 mg PO DIRECTED #1 packet 08/05/23 [Rx] Follow up Appointment(s)/Referral(s): Gillian Macias MD [STAFF PHYSICIAN] - 1 Week Bryan Sullivan MD [STAFF PHYSICIAN] - 2 Weeks Amaya Chang MD [Primary Care Provider] - 1-2 days Patient Instructions/Handouts: Heart Failure (DC), Influenza (DC), COPD (Chronic Obstructive Pulmonary Disease) (DC) Activity/Diet/Wound Care/Special Instructions: Please see PCP and pulmonology. Discharge Disposition: HOME SELF-CARE
== END 2023-08-05 15:09 | disposition home or self-care (01) | DRG 871 ==
LOC: EC 11:24 → 4SSUR 14:12 → 3SCARD 22:40 → 3NCARDOBS 08-04 01:52 → 3SCARD 08-04 01:53 → 4SSUR 08-04 04:14
PROVIDERS: ADMIT Internal Medicine; ATTEND Internal Medicine
DX: A41.89 Other specified sepsis (principal); I50.33 Acute on chronic diastolic (congestive) heart failure; J96.01 Acute respiratory failure with hypoxia; J96.21 Acute and chronic respiratory failure with hypoxia; J10.08 Influenza due to other identified influenza virus with other specified pneumonia; J15.9 Unspecified bacterial pneumonia; J44.1 Chronic obstructive pulmonary disease with (acute) exacerbation; E87.1 Hypo-osmolality and hyponatremia; N17.9 Acute kidney failure, unspecified; Z68.44 Body mass index [BMI] 60.0-69.9, adult; J44.0 Chronic obstructive pulmonary disease with (acute) lower respiratory infection; F17.210 Nicotine dependence, cigarettes, uncomplicated; E78.5 Hyperlipidemia, unspecified; E03.9 Hypothyroidism, unspecified; Z79.890 Hormone replacement therapy; I11.0 Hypertensive heart disease with heart failure; E11.9 Type 2 diabetes mellitus without complications; R74.01 Elevation of levels of liver transaminase levels; E86.0 Dehydration; Z11.52 Encounter for screening for COVID-19; I45.81 Long QT syndrome; J20.8 Acute bronchitis due to other specified organisms; J98.6 Disorders of diaphragm; I08.1 Rheumatic disorders of both mitral and tricuspid valves; E66.01 Morbid (severe) obesity due to excess calories; Z71.6 Tobacco abuse counseling; M06.9 Rheumatoid arthritis, unspecified; K59.00 Constipation, unspecified; Z79.51 Long term (current) use of inhaled steroids; Z79.84 Long term (current) use of oral hypoglycemic drugs; Z79.899 Other long term (current) drug therapy; Z82.49 Family history of ischemic heart disease and other diseases of the circulatory system; Z99.81 Dependence on supplemental oxygen; Z88.0 Allergy status to penicillin; Z91.040 Latex allergy status; Z91.048 Other nonmedicinal substance allergy status; Z63.4 Disappearance and death of family member
CPT/HCPCS: 36415; 71045; 71046; 80053; 81001; 83036; 83605; 83735; 83880; 84100; 84145; 84443; 84484; 85025; 85610; 85730; 87040; 87636; 93306; 94640; 96361; 96365; 96366; 96368; 96375; 96376; 99291

== ENCOUNTER 2024-01-04 12:43 | Observation (INO) | payer MEDICARE, OTHER ==
--- NOTE | 2024-01-04 13:21 | ED ---
General Adult HPI - General Chief complaint: Shortness of Breath Stated complaint: JOSE Time Seen by Provider: 01/04/24 12:54 Source: patient, RN notes reviewed, old records reviewed Mode of arrival: ambulatory Limitations: no limitations - History of Present Illness Initial comments: 68 yo female presenting with bilateral lower extremity swelling over the past several days and increased dyspnea. History of COPD and congestive heart failure. Patient denies fever. Denies central chest pain. Patient is not familiar with what medication she is currently taking. - Related Data Home Medications Medication Instructions Recorded Confirmed metFORMIN HCL [Glucophage] 1,000 mg PO BID-W/MEALS 09/08/16 08/03/23 Albuterol Sulfate [Proair Hfa] 2 puff INHALATION RT-Q6H PRN 04/19/17 08/03/23 Atorvastatin [Lipitor] 20 mg PO HS 04/19/17 08/03/23 Albuterol Nebulized [Ventolin 2.5 mg INHALATION RT-Q6H 02/26/19 08/03/23 Nebulized] Budesonide/Formoterol Fumarate 2 puff INHALATION RT-BID 08/03/23 08/03/23 [Symbicort 160-4.5 Mcg Inhaler] Famotidine [Pepcid] 20 mg PO BID PRN 08/03/23 08/03/23 Levothyroxine Sodium [Synthroid] 175 mcg PO DAILY 08/03/23 08/03/23 Losartan Potassium 50 mg PO DAILY 08/03/23 08/03/23 glipiZIDE [Glucotrol] 5 mg PO BID 08/03/23 08/03/23 Previous Rx's Medication Instructions Recorded Metoprolol Tartrate [Lopressor] 25 mg PO BID #60 tab 02/28/19 Azithromycin [Zithromax Tri-Jasper (3 500 mg PO DAILY 1 Days #1 tab 08/05/23 tabs)] Cefdinir 300 mg PO Q12HR #6 cap 08/05/23 Furosemide [Lasix] 20 mg PO DAILY #60 tab 08/05/23 Nicotine 21Mg/24Hr Patch [Habitrol] 1 patch TRANSDERM DAILY #14 patch 08/05/23 Oseltamivir 6Mg/ml Oral Susp 30 mg PO Q12HR #6 each 08/05/23 [Tamiflu] methylPREDNISolone Dose Pack 4 mg PO DIRECTED #1 packet 08/05/23 [Medrol Dose Pack] Allergies Allergy/AdvReac Type Severity Reaction Status Date / Time Latex, Natural Rubber Allergy Rash/Hives Verified 01/04/24 12:52 lactose AdvReac Diarrhea Verified 01/04/24 12:52 Penicillins AdvReac Nausea & Verified 01/04/24 12:52 Vomiting Review of Systems ROS Statement: Those systems with pertinent positive or pertinent negative responses have been documented in the HPI. ROS Other: All systems not noted in ROS Statement are negative. Past Medical History Past Medical History: Chest Pain / Angina, Diabetes Mellitus, Hypertension, Rheumatoid Arthritis (RA), Thyroid Disorder Additional Past Medical History / Comment(s): see DR Soriano H & P; long QT syndrome History of Any Multi-Drug Resistant Organisms: None Reported Additional Past Surgical History / Comment(s): Past Anesthesia/Blood Transfusion Reactions: Previous Problems w/ Anesthesia Additional Past Anesthesia/Blood Transfusion Reaction / Comment(s): difficulty waking up Past Psychological History: No Psychological Hx Reported Smoking Status: Current every day smoker Past Alcohol Use History: None Reported Past Drug Use History: None Reported - Past Family History Sister(s) Family Medical History: Myocardial Infarction ([place]) Father Family Medical History: Cancer Additional Family Medical History / Comment(s): father of lung cancer Mother Family Medical History: Cancer Additional Family Medical History / Comment(s): mother from breast cancer Daughter(s) Additional Family Medical History / Comment(s): daughter from SIDS General Exam Limitations: no limitations General appearance: alert, in no apparent distress Head exam: Present: atraumatic, normocephalic Eye exam: Present: normal appearance, PERRL ENT exam: Present: normal exam Neck exam: Present: normal inspection. Absent: tenderness, meningismus Respiratory exam: Present: wheezes, rales. Absent: respiratory distress Cardiovascular Exam: Present: regular rate, normal rhythm GI/Abdominal exam: Present: soft. Absent: distended, tenderness, guarding Extremities exam: Present: pedal edema Neurological exam: Present: alert Psychiatric exam: Present: normal affect, normal mood Skin exam: Present: warm, dry, intact Course Vital Signs 01/04/24 01/04/24 01/04/24 12:49 13:25 14:03 Temperature 98.3 F Pulse Rate 78 66 Respiratory 20 22 Rate Blood Pressure 139/74 O2 Sat by Pulse 90 L Oximetry 01/04/24 01/04/24 14:17 14:21 Temperature Pulse Rate 68 66 Respiratory 20 Rate Blood Pressure 123/81 O2 Sat by Pulse 94 L Oximetry Medical Decision Making - Medical Decision Making Was pt. sent in by a medical professional or institution (KIARA Rincon, CERTIFIED DRUG COUNSELOR, urgent care, hospital, or detention...) When possible be specific @ -No Did you speak to anyone other than the patient for history (EMS, parent, family, police, friend...)? What history was obtained from this source @ -No Did you review nursing and triage notes (agree or disagree)? Why? @ -I reviewed and agree with nursing and triage notes Were old charts reviewed (outside hosp., previous admission, EMS record, old EKG, old radiological studies, urgent care reports/EKG's, detention records)? Report findings @ -No old charts were reviewed Differential Dyspnea: Coronary syndrome, arrhythmia, tamponade, asthma, COPD, pulmonary embolism, pneumonia, pneumothorax, pulmonary effusion, anaphylaxis, diabetic ketoacidosis, flailed chest, pulmonary contusion, diaphragmatic rupture, anemia, neuromuscular, this is not meant to be an all-inclusive list. EKG interpreted by me (3pts min.). @ -Chest rhythm first-degree AV block rate of 72, AL interval 222, QRS duration 102, QTc [address] segment elevation X-rays interpreted by me (1pt min.). @ -[CHest X-ray concerning for pulmonary edema CT interpreted by me (1pt min.). @ -None done U/S interpreted by me (1pt. min.). @ -None done What testing was considered but not performed or refused? (CT, X-rays, U/S, labs)? Why? @ -None What meds were considered but not given or refused? Why? @ -None Did you discuss the management of the patient with other professionals (roberto dean i.e. KIARA Rincon, CERTIFIED DRUG COUNSELOR, lab, RT, psych nurse, social science teacher, picture copyist, teacher, training systems officer, geriatric case manager)? Give summary @ -No Was smoking cessation discussed for >3mins.? @ -No Was critical care preformed (if so, how long)? @ -No Were there social determinants of health that impacted care today? How? (Homelessness, low income, unemployed, alcoholism, drug addiction, transportation, low edu. Level, literacy, decrease access to med. care, detention, rehab)? @ -No Was there de-escalation of care discussed even if they declined (Discuss DNR or withdrawal of care, Hospice)? DNR status @ -No What co-morbidities impacted this encounter? (DM, HTN, Smoking, COPD, CAD, Cancer, CVA, ARF, Chemo, Hep., AIDS, mental health diagnosis, sleep apnea, morbid obesity)? @ -CHF, COPD Was patient admitted / discharged? Hospital course, mention meds given and route, prescriptions, significant lab abnormalities, going to OR and other pertinent info. @ 68-year-old female presenting with increased dyspnea and bilateral lower extremity swelling. History of CHF and COPD. Chest x-ray does appear to have pulmonary edema. Patient has oxygen saturation of 90% on room air with moderate dyspnea. She will be admitted for combination of COPD exacerbation and CHF. Placed on steroids, breathing treatments, and Lasix. Case discussed with Dr. Esquivel who will admit. Undiagnosed new problem with uncertain prognosis? @ -No Drug Therapy requiring intensive monitoring for toxicity (Heparin, Nitro, Insulin, Cardizem)? @ -No Were any procedures done? @ -No Diagnosis/symptom? @COPD, CHF Acute, or Chronic, or Acute on Chronic? @ -[acute Uncomplicated (without systemic symptoms) or Complicated (systemic symptoms)? @ -Default Side effects of treatment? @ -No Exacerbation, Progression, or Severe Exacerbation? @ -No Poses a threat to life or bodily function? How? (Chest pain, [place], [place], pneumonia, PE, COPD, DKA, ARF, appy, cholecystitis, CVA, Diverticulitis, Homicidal, Suicidal, threat to staff... and all critical care pts) @ -Yes, COPD, CHF, respiratory failure - Lab Data Result diagrams: 01/04/24 13:37 01/04/24 13:37 Lab Results 01/04/24 01/04/24 01/04/24 Range/Units 13:37 13:37 13:37 WBC 7.4 (3.8-10.6) k/uL RBC 4.99 (3.80-5.40) m/uL Hgb 13.7 (11.4-16.0) gm/dL Hct 44.8 (34.0-46.0) % MCV 89.7 (80.0-100.0) fL MCH 27.5 (25.0-35.0) pg MCHC 30.6 L (31.0-37.0) g/dL RDW 16.9 H (11.5-15.5) % Plt Count 373 (150-450) k/uL MPV 7.5 Neutrophils % 58 % Lymphocytes % 31 % Monocytes % 6 % Eosinophils % 3 % Basophils % 0 % Neutrophils # 4.3 (1.3-7.7) k/uL Lymphocytes # 2.3 (1.0-4.8) k/uL Monocytes # 0.4 (0-1.0) k/uL Eosinophils # 0.2 (0-0.7) k/uL Basophils # 0.0 (0-0.2) k/uL Hypochromasia Slight Anisocytosis Slight PT 10.6 (10.0-12.5) sec INR 1.0 (<1.2) APTT 24.3 (22.0-30.0) sec Sodium 136 L (137-145) mmol/L Potassium 4.9 (3.5-5.1) mmol/L Chloride 103 (98-107) mmol/L Carbon Dioxide 28 (22-30) mmol/L Anion Gap 5 mmol/L BUN 15 (7-17) mg/dL Creatinine 0.92 (0.52-1.04) mg/dL Est GFR (CKD-EPI)AfAm 75 (>60 ml/min/1.73 sqM) Est GFR (CKD-EPI)NonAf 65 (>60 ml/min/1.73 sqM) Glucose 47 L* (74-99) mg/dL Calcium 9.2 (8.4-10.2) mg/dL Magnesium 2.0 (1.6-2.3) mg/dL Total Bilirubin 0.8 (0.2-1.3) mg/dL AST 26 (14-36) U/L ALT 17 (4-34) U/L Alkaline Phosphatase 107 (38-126) U/L Troponin I (0.000-0.034) ng/mL NT-Pro-B Natriuret Pep 678 pg/mL Total Protein 7.3 (6.3-8.2) g/dL Albumin 3.9 (3.5-5.0) g/dL 01/04/24 Range/Units 13:37 WBC (3.8-10.6) k/uL RBC (3.80-5.40) m/uL Hgb (11.4-16.0) gm/dL Hct (34.0-46.0) % MCV (80.0-100.0) fL MCH (25.0-35.0) pg MCHC (31.0-37.0) g/dL RDW (11.5-15.5) % Plt Count (150-450) k/uL MPV Neutrophils % % Lymphocytes % % Monocytes % % Eosinophils % % Basophils % % Neutrophils # (1.3-7.7) k/uL Lymphocytes # (1.0-4.8) k/uL Monocytes # (0-1.0) k/uL Eosinophils # (0-0.7) k/uL Basophils # (0-0.2) k/uL Hypochromasia Anisocytosis PT (10.0-12.5) sec INR (<1.2) APTT (22.0-30.0) sec Sodium (137-145) mmol/L Potassium (3.5-5.1) mmol/L Chloride (98-107) mmol/L Carbon Dioxide (22-30) mmol/L Anion Gap mmol/L BUN (7-17) mg/dL Creatinine (0.52-1.04) mg/dL Est GFR (CKD-EPI)AfAm (>60 ml/min/1.73 sqM) Est GFR (CKD-EPI)NonAf (>60 ml/min/1.73 sqM) Glucose (74-99) mg/dL Calcium (8.4-10.2) mg/dL Magnesium (1.6-2.3) mg/dL Total Bilirubin (0.2-1.3) mg/dL AST (14-36) U/L ALT (4-34) U/L Alkaline Phosphatase (38-126) U/L Troponin I <0.012 (0.000-0.034) ng/mL NT-Pro-B Natriuret Pep pg/mL Total Protein (6.3-8.2) g/dL Albumin (3.5-5.0) g/dL Disposition Clinical Impression: CHF (congestive heart failure), Acute exacerbation of chronic obstructive pulmonary disease Disposition: ADMITTED IP TO THIS HOSP Condition: Stable Is patient prescribed a controlled substance at d/c from ED?: No Referrals: Amaya Chang MD [Primary Care Provider] - 1-2 days Time of Disposition: 15:24
--- NOTE | 2024-01-04 13:53 | XR ---
EXAMINATION TYPE: XR chest 2V DATE OF EXAM: 01/04/2024 1:45 PM CLINICAL INDICATION:Female, 68 years old with history of difficulty breathing; [facility] COMPARISON: Chest radiographs from 08/04/2023 TECHNIQUE: XR chest 2V Frontal and lateral views of the chest. FINDINGS: Lungs/Pleura: Diffuse hazy opacities of lungs. There is no evidence of pleural effusion, focal consol idation, or pneumothorax. Pulmonary vascularity: Pulmonary vascular congestion. Heart/mediastinum: Cardiomediastinal silhouette is prominent in size. Musculoskeletal: No acute osseous pathology. IMPRESSION: Bilateral airspace opacities not significantly changed from prior. Correlate for congestive heart klaus lure and or pneumonia.
[2024-01-04 14:01] LABS: Anisocytosis Slight; Basophils % (A) 0 %; Eosinophils # (A) 0.2 k/uL (0-0.7); Eosinophils % (A) 3 %; HCT 44.8 % (34.0-46.0); HGB 13.7 gm/dL (11.4-16.0); Hypochromasia Slight; Lymphocytes # (A) 2.3 k/uL (1.0-4.8); Lymphocytes % (A) 31 %; MCH 27.5 pg (25.0-35.0); MCHC 30.6 g/dL (31.0-37.0); MCV 89.7 fL (80.0-100.0); Mean Platelet Volume 7.5; Monocytes # (A) 0.4 k/uL (0-1.0); Monocytes % (A) 6 %; Neutrophils # (A) 4.3 k/uL (1.3-7.7); Neutrophils % (A) 58 %; Platelet Count 373 k/uL (150-450); RBC 4.99 m/uL (3.80-5.40); RDW 16.9 % (11.5-15.5); WBC 7.4 k/uL (3.8-10.6)
[2024-01-04] MEDS: IPRATROPIUM 0.5 MG/2.5 ML NEBU INHALATION STA (14:02)
[2024-01-04] MEDS: ALBUTEROL NEBULIZED 2.5 MG/3 ML INHALATION STA (14:02)
[2024-01-04 14:06] LABS: ALT 17 U/L (4-34); African American GFR (CKD) 75 (>60 ml/min/1.73 sqM); Albumin 3.9 g/dL (3.5-5.0); Anion Gap 5 mmol/L; Blood Urea Nitrogen 15 mg/dL (7-17); Calcium 9.2 mg/dL (8.4-10.2); Carbon Dioxide 28 mmol/L (22-30); Chloride 103 mmol/L (98-107); Non-African American GFR(CKD) 65 (>60 ml/min/1.73 sqM); Sodium 136 mmol/L (137-145); Total Bilirubin 0.8 mg/dL (0.2-1.3)
[2024-01-04 14:07] LABS: Partial Thromboplastin Time 24.3 sec (22.0-30.0); Prothrombin Time 10.6 sec (10.0-12.5)
[2024-01-04 14:14] LABS: NT-Pro-B-Type Natriuretic Pept 678 pg/mL
[2024-01-04 14:34] LABS: Glucose 47 mg/dL (74-99)
[2024-01-04 14:35] LABS: AST 26 U/L (14-36); Alkaline Phosphatase 107 U/L (38-126); Potassium 4.9 mmol/L (3.5-5.1); Total Protein 7.3 g/dL (6.3-8.2)
[2024-01-04] MEDS: FUROSEMIDE 10 MG/ML 4 ML VIAL IV STA (14:51)
[2024-01-04] MEDS: methylPREDNISolone SOD SUCCI 125 MG/2 ML VIAL IV STA (14:52)
[2024-01-04] MEDS ORDERED: NALOXONE 0.4 MG/ML 1 ML VIAL IVP PRN (15:20)
[2024-01-04] MEDS ORDERED: IPRATROPIUM-ALBUTEROL 3 ML NEB INHALATION PRN (15:20)
[2024-01-04 15:35] LABS: Glucose,Whole Blood 108 mg/dL (70-110)
[2024-01-04] MEDS: IPRATROPIUM-ALBUTEROL 3 ML NEB INHALATION SCH (16:13)
[2024-01-04] MEDS ORDERED: DEXTROSE 50% SYRINGE 50 ML IVP PRN ×2 (16:46)
[2024-01-04] MEDS: NICOTINE 21MG/24HR PATCH TRANSDERM STA (16:49)
[2024-01-04] MEDS: AZITHROMYCIN 500 MG TAB PO SCH (16:49)
[2024-01-04] MEDS: SYMBICORT 160-4.5 MCG INHALER INHALATION SCH (16:57)
[2024-01-04] MEDS: INSULIN ASPART (NovoLOG) 100 UNIT/ML VIAL SQ SCH (16:58)
[2024-01-04 19:19] LABS: Glucose,Whole Blood 213 mg/dL (70-110)
[2024-01-04] MEDS: Acetaminophen-Codeine 300-30mg TAB PO PRN (20:19)
[2024-01-04] MEDS: METOPROLOL TARTRATE 25 MG TAB PO SCH (20:19)
[2024-01-04] MEDS: methylPREDNISolone SOD SUCCI 125 MG/2 ML VIAL IV SCH (20:19)
--- NOTE | 2024-01-05 00:43 | HP ---
HISTORY AND PHYSICAL CHIEF COMPLAINTS: Shortness of breath and leg swelling. HISTORY OF PRESENT ILLNESS: This is a 68-year-old woman with a past medical history of multiple medical problems including diabetes mellitus, hypertension, rheumatoid arthritis, who is complaining of increasing shortness of breath over the past several days. The patient also has bilateral leg swelling. The patient also complains of headache and the patient also continues to smoke. Chest x-ray showed significant COPD and possible pneumonia process versus CHF also, which I reviewed personally. There is no history of any fever, rigors or chills at this time. PAST MEDICAL HISTORY: History of diabetes, hypertension, rheumatoid arthritis, long QT syndrome. Rest of the history and rest of the chart is also reviewed. HOME MEDICATIONS: Albuterol. Dose and rest of medications noted. ALLERGIES: Latex. FAMILY HISTORY: History of myocardial infarction in the family. SOCIAL HISTORY: Continued smoking. REVIEW OF SYSTEMS: A 14-point review is negative except as mentioned earlier. PHYSICAL EXAMINATION: VITAL SIGNS: Pulse is 68, blood pressure 110/81, respirations 20. HEENT: Conjunctivae normal. NECK: No JVD. CARDIOVASCULAR: S1, S2. RESPIRATIONS: Bilateral scattered rhonchi and crackles. ABDOMEN: Soft, nontender. LEGS: No edema. NERVOUS SYSTEM: No focal deficit. LABORATORY DATA: WBC 7.4, hemoglobin 13.7, sodium 136. ASSESSMENT: 1. Shortness of breath, possibly multifactorial secondary to chronic obstructive pulmonary disease and as well as congestive heart failure acute exacerbation with acute on chronic systolic dysfunction, ejection fraction low at 50%. 2. Rule out pneumonia. 3. Diabetes mellitus type 2. 4. Hypertension. 5. Headaches. 6. Rheumatoid arthritis. 7. Long QT syndrome history, current QTc is 450 milliseconds. 8. Continued ongoing nicotine dependence. 9. Hyponatremia. 10.Hypoglycemia. RECOMMENDATIONS AND DISCUSSION: This 68-year-old woman presented with multiple complex medical issues as listed above. At this time, I recommend to continue current medications, symptomatic treatment. I would recommend intensive bronchodilator treatment, IV diuretics, Cardiology and Pulmonology consultations, empiric antibiotics. I would also check serum procalcitonin and IV steroids. Monitor blood sugars closely. Resume the home medications once they are confirmed. Prognosis guarded because of multiple complex medical issues, discussed with the patient. Further recommendations to follow. See orders for details. MMODL / IJN: [id number] /
--- NOTE | 2024-01-05 05:42 | P.CNPUL ---
History of Present Illness Consult date: 01/05/24 Requesting physician: Maximo Cheatham Reason for consult: COPD Chief complaint: Progressively worsening shortness of breath History of present illness: Patient is a 68-year-old -[place] female with past medical history significant for COPD, chronic oxygen dependence, obstructive sleep apnea without home CPAP, chronic ongoing tobacco dependence, hypertension, hyperlipidemia, hypothyroidism, type 2 diabetes, morbid obesity, among other things. Her primary care provider is a Megan Alejandro out of [place]. She continues to smoke approximately 1 pack/day. She utilizes combination of Symbicort inhaler, albuterol nebs, and as needed albuterol rescue inhaler. She is chronically oxygen dependent on 3 L/min nasal cannula. She presents yesterday afternoon complaining of progressively worsening shortness of breath over the last couple days associated with increased lower extremity swelling. No associated chest pain. Denies orthopnea or PND. States she has not been compliant with her Lasix. Denies sick contacts. Denies any fevers. Does admit increasing coughing with occasional yellow sputum production. Chest x-ray consistent with bilateral airspace opacities superimposed on chronic interstitial pattern. CBC unremarkable, no leukocytosis. BMP also unremarkable. Troponin less than 0.012. NT proBNP only mildly elevated at 678. EKG shows normal sinus rhythm with nonspecific ST abnormalities. Most recent available echocardiogram from 08/03/2023 demonstrates a preserved left ventricular ejection fraction of 50%, no significant valvular abnormalities noted. Procalcitonin has resulted at 0.11. Negative for influenza, RSV, COVID. She is currently sitting at the edge of the bed, on 4 L/min nasal cannula. Not in any respiratory distress. Afebrile. Hemodynamically stable. Review of Systems REVIEW OF SYSTEMS: CONSTITUTIONAL: Denies any recent significant weight loss or weight gain. EYES: Denies change in vision. EARS, NOSE, MOUTH, THROAT: Denies headaches, denies sore throat. CARDIOVASCULAR: Denies chest pain, palpitations or syncopal episodes. Admits increased lower extremity swelling. RESPIRATORY: See HPI GASTROINTESTINAL: Denies change in appetite, abdominal pain, nausea and vomiting, or diarrhea GENITOURINARY: Denies hematuria, denies infections. MUSKULOSKELETAL: Denies pain, denies swelling. INTEGUMENTARY: Denies rash, denies eczema. NEUROLOGICAL: Denies recent memory loss, no recent seizure activity. PSYCHIATRIC: Denies anxiety, denies depression. HEMATOLOGIC/LYMPHATIC: Denies anemia, denies enlarged lymph node Past Medical History Past Medical History: Chest Pain / Angina, Diabetes Mellitus, Hypertension, Rheumatoid Arthritis (RA), Thyroid Disorder Additional Past Medical History / Comment(s): see DR Soriano H & P; long QT syndrome History of Any Multi-Drug Resistant Organisms: None Reported Additional Past Surgical History / Comment(s): Past Anesthesia/Blood Transfusion Reactions: Previous Problems w/ Anesthesia Additional Past Anesthesia/Blood Transfusion Reaction / Comment(s): difficulty waking up Past Psychological History: No Psychological Hx Reported Smoking Status: Current every day smoker Past Alcohol Use History: None Reported Past Drug Use History: None Reported - Past Family History Sister(s) Family Medical History: Myocardial Infarction ([place]) Father Family Medical History: Cancer Additional Family Medical History / Comment(s): father of lung cancer Mother Family Medical History: Cancer Additional Family Medical History / Comment(s): mother from breast cancer Daughter(s) Additional Family Medical History / Comment(s): daughter from SIDS Medications and Allergies Home Medications Medication Instructions Recorded Confirmed Type metFORMIN HCL [Glucophage] 1,000 mg PO DAILY 09/08/16 01/04/24 History Albuterol Sulfate [Proair Hfa] 2 puff INHALATION RT-Q6H PRN 04/19/17 01/04/24 History Atorvastatin [Lipitor] 20 mg PO DAILY 04/19/17 01/04/24 History Albuterol Nebulized [Ventolin 2.5 mg INHALATION RT-Q6H PRN 02/26/19 01/04/24 History Nebulized] Metoprolol Tartrate [Lopressor] 25 mg PO BID #60 tab 02/28/19 01/04/24 Rx Budesonide/Formoterol Fumarate 2 puff INHALATION RT-BID 08/03/23 01/04/24 History [Symbicort 160-4.5 Mcg Inhaler] Levothyroxine Sodium [Synthroid] 175 mcg PO DAILY 08/03/23 01/04/24 History Losartan Potassium 50 mg PO DAILY 08/03/23 01/04/24 History Furosemide [Lasix] 20 mg PO DAILY #60 tab 08/05/23 01/04/24 Rx Nicotine 21Mg/24Hr Patch [Habitrol] 1 patch TRANSDERM DAILY #14 patch 08/05/23 01/04/24 Rx [place] Xl(Unknown Dose) 1 cap PO DAILY 01/04/24 01/04/24 History glyBURIDE [Diabeta] 5 mg PO DAILY 01/04/24 01/04/24 History Allergies Allergy/AdvReac Type Severity Reaction Status Date / Time Latex, Natural Rubber Allergy Rash/Hives Verified 01/04/24 12:52 lactose AdvReac Diarrhea Verified 01/04/24 12:52 Penicillins AdvReac Nausea & Verified 01/04/24 12:52 Vomiting Physical Exam Vitals: Vital Signs Temp Pulse Resp BP Pulse Ox 01/05/24 00:00 71 18 111/58 95 01/04/24 22:00 68 18 101/50 95 01/04/24 20:18 74 18 123/80 96 01/04/24 20:07 81 01/04/24 19:57 83 01/04/24 16:21 71 01/04/24 16:13 74 01/04/24 14:21 66 01/04/24 14:17 68 20 123/81 94 L 01/04/24 14:03 66 01/04/24 13:25 22 01/04/24 12:49 98.3 F 78 20 139/74 90 L Intake and Output 01/04/24 01/04/24 01/05/24 14:59 22:59 06:59 Other: Weight 208.652 kg GENERAL EXAM: Alert, 68-year-old -[place] female, sitting at the edge of the bed, comfortable in no apparent distress. HEAD: Normocephalic and atraumatic EYES: Normal reaction of pupils, equal size. NOSE: Clear with pink turbinates. THROAT: No erythema or exudates. NECK: No masses, no JVD. CHEST: No chest wall deformity. LUNGS: Equal air entry with minimal bibasilar inspiratory crackles. No wheezing, rhonchi, focal dullness. On 4 L/min nasal cannula. No conversational dyspnea or accessory muscle use.. CVS: S1 and S2 normal with no audible murmur, regular rhythm. No extra heart sounds ABDOMEN: No hepatosplenomegaly, active bowel sounds, no guarding or rigidity. SPINE: No scoliosis or deformity SKIN: No rashes CENTRAL NERVOUS SYSTEM: No focal deficits, tone is normal in all 4 extremities. EXTREMITIES: There is bilateral lower extremity pitting edema, 1+. No clubbing, or cyanosis. Peripheral pulses are intact. Results - Laboratory Findings CBC and BMP: 01/04/24 13:37 01/04/24 13:37 PT/INR, D-dimer PT 10.6 sec (10.0-12.5) 01/04/24 13:37 INR 1.0 (<1.2) 01/04/24 13:37 Abnormal lab findings: Abnormal Labs 01/04/24 01/04/24 01/04/24 13:37 13:37 13:37 MCHC 30.6 L RDW 16.9 H Sodium 136 L Glucose 47 L* POC Glucose (mg/dL) Procalcitonin 0.11 H 01/04/24 19:17 MCHC RDW Sodium Glucose POC Glucose (mg/dL) 213 H Procalcitonin - Diagnostic Findings Chest x-ray: image reviewed Assessment and Plan Assessment: Acute on chronic hypoxemic respiratory failure, likely secondary to a combination of diastolic CHF exacerbation and possible mild COPD exacerbation. Chest x-ray consistent with bilateral airspace opacities superimposed on chronic interstitial pattern, clinically doubt pneumonia. Does report increased lower extremity swelling. NT proBNP only mildly elevated at 678. Chronic obstructive pulmonary disease Chronic hypoxemic respiratory failure, normally maintained on 3 L/min nasal cannula while at home, secondary to above Chronic ongoing tobacco dependence, down to 1 pack/day History of obstructive sleep apnea, without home CPAP, machine is reportedly broke History of hypertension History of hyperlipidemia History of hypothyroidism Type 2 diabetes mellitus, not insulin-dependent Morbid obesity, with a BMI of 64.2 kg/m Plan: Patient's medications, labs, chest x-ray reviewed Continue supplemental oxygen, currently requiring 4 L/min nasal cannula Start patient on Lasix 40 mg twice daily Procalcitonin level only mildly elevated 0.11. Empirically started on azithromycin Viral panel negative for influenza, RSV, COVID. Start patient on a combination of DuoNebs [id number], Symbicort inhaler, and IV Solu-Medrol. Smoking cessation counseling performed and nicotine replacement patch offered. We will continue to follow I have personally seen and examined the patient, performed the documentation and the assessment and plan as written. Number of minutes spent on the visit:20 Time with Patient: Greater than 30
[2024-01-05] MEDS: LEVOTHYROXINE 100 MCG TAB PO SCH (06:02)
[2024-01-05] MEDS: LEVOTHYROXINE 75 MCG TAB PO SCH (06:02)
--- NOTE | 2024-01-05 08:53 | XR ---
EXAMINATION TYPE: XR chest 1V portable DATE OF EXAM: 01/05/2024 6:10 AM CLINICAL INDICATION:Female, 68 years old with history of chf; [facility] COMPARISON: Chest radiographs from 01/04/2024. TECHNIQUE: XR chest 1V portable Frontal view of the chest. FINDINGS: Lungs/Pleura: There is no evidence of pleural effusion, focal consolidation, or pneumothorax. Pulmonary vascularity: Pulmonary vascular congestion. Heart/mediastinum: Cardiomediastinal silhouette is prominent in size. Musculoskeletal: No acute osseous pathology. IMPRESSION: Diffuse interstitial opacities of the lungs worse in the lung bases correlate for congestive heart fa ilure with serum BNP.
[2024-01-05] MEDS ORDERED: FUROSEMIDE 10 MG/ML 4 ML VIAL IV SCH (09:00)
[2024-01-05] MEDS: SPIRONOLACTONE 25 MG TAB PO SCH (10:05)
[2024-01-05] MEDS: ATORVASTATIN 20 MG TAB PO SCH (10:05)
[2024-01-05] MEDS: LOSARTAN 50 MG TAB PO SCH (10:05)
[2024-01-05] MEDS: NICOTINE 21MG/24HR PATCH TRANSDERM SCH (10:06)
[2024-01-05] MEDS: DAPAGLIFLOZIN PROPANEDIOL 10 MG TABLET PO SCH (10:16)
[2024-01-05] MEDS: TORSEMIDE 20 MG TAB PO SCH (10:16)
--- NOTE | 2024-01-05 10:38 | P.CRDCN ---
History of Present Illness Consult date: 01/05/24 Consult reason: congestive heart failure History of present illness: This is a 68-year-old female patient of Dr. Soriano with past medical history of hypertension, diabetes mellitus type 2, morbid obesity with BMI of 64, hyperlipidemia, hypothyroidism, COPD, chronic hypoxic respiratory failure on home O2, tobacco use and dependence. We have been asked to evaluate the patient for CHF. Patient has had more lower extremity edema that is gradually worsening over the past several days with some shortness of breath. No fever or chills. No chest pain. Blood pressure 114/71, heart rate 80, pulse ox 95% on 2 L nasal cannula. She is status post IV Lasix 40 mg every 12 hours and IV Solu-Medrol, nebulizers. She states she is an active smoker and she is also on home O2. EKG: Sinus rhythm with no acute ST changes. Chest x-ray: Diffuse interstitial opacity of the lungs worse in the lung bases correlate for heart failure with serum BNP. Laboratory studies: WBC 7.4, hemoglobin 13.7. Sodium 136, potassium 4.9, glucose 47. Procalcitonin 0.11. Troponin negative x 1. proBNP 678. Influenza A, influenza B, RSV, COVID-19 not detected. Home cardiac medications: Atorvastatin 20 mg daily, Lasix 20 mg daily, losartan 50 mg daily, Lopressor 25 mg twice daily, also on levothyroxine and nicotine patch. Patient denies taking Lasix at home. Echocardiogram performed July 2023 revealed EF of 50%, technically difficult and limited views. Echocardiogram performed 08/03/2023 reveals EF 50%, technically difficult and limited views. Review Of Systems: At the time of my exam: CONSTITUTIONAL: Denies fever or chills. HEENT: Denies blurred vision, vision changes, or eye pain. Denies hemoptysis CARDIOVASCULAR: Denies chest pain. Denies orthopnea. Denies PND. Denies palpitations. Reports edema RESPIRATORY: Reports shortness of breath. GASTROINTESTINAL: Denies abdominal pain. Denies nausea or vomiting. HEMATOLOGIC: Denies bleeding disorders. GENITOURINARY: Denies any blood in urine. SKIN: Denies puritis. Denies rash. Physical examination: Gen: This is a 68-year-old morbidly obese black female in no acute respiratory distress VS: reviewed HEENT: Head is atraumatic, normocephalic. Pupils equal, round. Sclerae is anicteric. NECK: Supple. No JVD. LUNGS: Bilateral expiratory wheezing no intercostal retractions. HEART: Regular rate and rhythm. No murmur. ABDOMEN: Soft No tenderness. EXTREMITIES: 1+ bilateral lower extremity edema. No calf tenderness. NEUROLOGICAL: Patient is awake, alert and oriented x3. Assessment: Acute on chronic hypoxic respiratory failure secondary to COPD exacerbation, possible pneumonia, and possible mild component of acute diastolic heart failure Hypertension Diabetes mellitus type 2 Morbid obesity with BMI of 64 Hyperlipidemia Hypothyroidism Tobacco use and dependence Plan: Resume patient's home cardiac medications Discontinue IV Lasix and start patient on torsemide 10 mg daily Start patient on Farxiga 10 mg daily and Aldactone 25 mg daily No need to repeat echocardiogram as this was done in July Further recommendations to follow based upon clinical course Thank you kindly for this consultation. Nurse practitioner note has been reviewed, I agree with documented findings and plan of care. Patient was seen and examined. Past Medical History Past Medical History: Chest Pain / Angina, Diabetes Mellitus, Hypertension, Rheumatoid Arthritis (RA), Thyroid Disorder Additional Past Medical History / Comment(s): see DR Soriano H & P; long QT syndrome History of Any Multi-Drug Resistant Organisms: None Reported Additional Past Surgical History / Comment(s): Past Anesthesia/Blood Transfusion Reactions: Previous Problems w/ Anesthesia Additional Past Anesthesia/Blood Transfusion Reaction / Comment(s): difficulty waking up Past Psychological History: No Psychological Hx Reported Smoking Status: Current every day smoker Past Alcohol Use History: None Reported Past Drug Use History: None Reported - Past Family History Sister(s) Family Medical History: Myocardial Infarction ([place]) Father Family Medical History: Cancer Additional Family Medical History / Comment(s): father of lung cancer Mother Family Medical History: Cancer Additional Family Medical History / Comment(s): mother from breast cancer Daughter(s) Additional Family Medical History / Comment(s): daughter from SIDS Medications and Allergies Home Medications Medication Instructions Recorded Confirmed Type metFORMIN HCL [Glucophage] 1,000 mg PO DAILY 09/08/16 01/04/24 History Albuterol Sulfate [Proair Hfa] 2 puff INHALATION RT-Q6H PRN 04/19/17 01/04/24 History Atorvastatin [Lipitor] 20 mg PO DAILY 04/19/17 01/04/24 History Albuterol Nebulized [Ventolin 2.5 mg INHALATION RT-Q6H PRN 02/26/19 01/04/24 History Nebulized] Metoprolol Tartrate [Lopressor] 25 mg PO BID #60 tab 02/28/19 01/04/24 Rx Budesonide/Formoterol Fumarate 2 puff INHALATION RT-BID 08/03/23 01/04/24 History [Symbicort 160-4.5 Mcg Inhaler] Levothyroxine Sodium [Synthroid] 175 mcg PO DAILY 08/03/23 01/04/24 History Losartan Potassium 50 mg PO DAILY 08/03/23 01/04/24 History Furosemide [Lasix] 20 mg PO DAILY #60 tab 08/05/23 01/04/24 Rx Nicotine 21Mg/24Hr Patch [Habitrol] 1 patch TRANSDERM DAILY #14 patch 08/05/23 01/04/24 Rx [place] Xl(Unknown Dose) 1 cap PO DAILY 01/04/24 01/04/24 History glyBURIDE [Diabeta] 5 mg PO DAILY 01/04/24 01/04/24 History Allergies Allergy/AdvReac Type Severity Reaction Status Date / Time Latex, Natural Rubber Allergy Rash/Hives Verified 01/04/24 12:52 lactose AdvReac Diarrhea Verified 01/04/24 12:52 Penicillins AdvReac Nausea & Verified 01/04/24 12:52 Vomiting Physical Exam Vitals: Vital Signs Temp Pulse Resp BP Pulse Ox 01/05/24 07:22 73 22 114/71 90 L 01/05/24 06:01 73 18 117/75 95 01/05/24 00:00 71 18 111/58 95 01/04/24 22:00 68 18 101/50 95 01/04/24 20:18 74 18 123/80 96 01/04/24 20:07 81 01/04/24 19:57 83 01/04/24 16:21 71 01/04/24 16:13 74 01/04/24 14:21 66 01/04/24 14:17 68 20 123/81 94 L 01/04/24 14:03 66 01/04/24 13:25 22 01/04/24 12:49 98.3 F 78 20 139/74 90 L Results 01/04/24 13:37 01/04/24 13:37 Cardiac Enzymes 01/04/24 01/04/24 Range/Units 13:37 13:37 AST 26 (14-36) U/L Troponin I <0.012 (0.000-0.034) ng/mL Coagulation 01/04/24 Range/Units 13:37 PT 10.6 (10.0-12.5) sec APTT 24.3 (22.0-30.0) sec CBC 01/04/24 Range/Units 13:37 WBC 7.4 (3.8-10.6) k/uL RBC 4.99 (3.80-5.40) m/uL Hgb 13.7 (11.4-16.0) gm/dL Hct 44.8 (34.0-46.0) % Plt Count 373 (150-450) k/uL Comprehensive Metabolic Panel 01/04/24 Range/Units 13:37 Sodium 136 L (137-145) mmol/L Potassium 4.9 (3.5-5.1) mmol/L Chloride 103 (98-107) mmol/L Carbon Dioxide 28 (22-30) mmol/L BUN 15 (7-17) mg/dL Creatinine 0.92 (0.52-1.04) mg/dL Glucose 47 L* (74-99) mg/dL Calcium 9.2 (8.4-10.2) mg/dL AST 26 (14-36) U/L ALT 17 (4-34) U/L Alkaline Phosphatase 107 (38-126) U/L Total Protein 7.3 (6.3-8.2) g/dL Albumin 3.9 (3.5-5.0) g/dL Current Medications Generic Name Dose Route Start Last Admin Trade Name Freq PRN Reason Stop Dose Admin Acetaminophen/Codeine Phosphate 1 each 01/04/24 16:46 01/04/24 20:19 Acetaminophen-Codeine 300-30mg Tab PO 1 each Q6HR PRN Administration Pain Albuterol/Ipratropium 3 ml 01/04/24 15:20 Ipratropium-Albuterol 3 Ml Neb INHALATION RT-Q2H PRN Shortness Of Breath Or Wheezing Albuterol/Ipratropium 3 ml 01/04/24 16:00 01/05/24 07:54 Ipratropium-Albuterol 3 Ml Neb INHALATION 3 ml RT-QID [facility] Administration Atorvastatin Calcium 20 mg 01/05/24 09:00 Atorvastatin 20 Mg Tab PO DAILY [facility] Azithromycin 500 mg 01/04/24 16:00 01/04/24 16:49 Azithromycin 500 Mg Tab PO 01/06/24 09:01 500 mg DAILY [facility] Administration Protocol Budesonide/Formoterol Fumarate 2 puff 01/04/24 17:00 01/05/24 07:54 Symbicort 160-4.5 Mcg Inhaler INHALATION 2 puff RT-BID [facility]MA Administration Dextrose/Water 25 ml 01/04/24 16:46 Dextrose 50% Syringe 50 Ml IVP PER PROTOCOL PRN Hypoglycemia Protocol Dextrose/Water 50 ml 01/04/24 16:46 Dextrose 50% Syringe 50 Ml IVP PER PROTOCOL PRN Hypoglycemia Protocol Furosemide 40 mg 01/05/24 09:00 Furosemide 10 Mg/Ml 4 Ml Vial IV Q12HR [facility] Insulin Aspart 0 unit 01/04/24 17:30 01/04/24 20:21 Insulin Aspart (Novolog) 100 Unit/Ml Vial SQ Not Given ACHS [facility] Protocol Levothyroxine Sodium 100 mcg 01/05/24 06:30 01/05/24 06:02 Levothyroxine 100 Mcg Tab PO 100 mcg DAILY@0630 [facility] Administration Levothyroxine Sodium 75 mcg 01/05/24 06:30 01/05/24 06:02 Levothyroxine 75 Mcg Tab PO 75 mcg DAILY@0630 [facility] Administration Losartan Potassium 50 mg 01/05/24 09:00 Losartan 50 Mg Tab PO DAILY [facility] Methylprednisolone Sodium Succinate 60 mg 01/04/24 21:00 01/05/24 04:41 Methylprednisolone Sod Succi 125 Mg/2 Ml Vial IV 60 mg Q6H [facility] Administration Metoprolol Tartrate 25 mg 01/04/24 21:00 01/04/24 20:19 Metoprolol Tartrate 25 Mg Tab PO 25 mg BID [facility] Administration Naloxone HCl 0.2 mg 01/04/24 15:20 Naloxone 0.4 Mg/Ml 1 Ml Vial IVP Q2M PRN Opioid Reversal Nicotine 1 patch 01/05/24 09:00 Nicotine 21mg/24hr Patch TRANSDERM DAILY [facility] 01/04/24 13:37 01/04/24 13:37
[2024-01-05 11:22] LABS: Anisocytosis Slight; Basophils % (A) 0 %; Eosinophils % (A) 0 %; HCT 43.9 % (34.0-46.0); HGB 12.9 gm/dL (11.4-16.0); Hypochromasia Moderate; Lymphocytes # (A) 1.1 k/uL (1.0-4.8); Lymphocytes % (A) 11 %; MCHC 29.3 g/dL (31.0-37.0); MCV 92.1 fL (80.0-100.0); Mean Platelet Volume 7.4; Monocytes # (A) 0.5 k/uL (0-1.0); Monocytes % (A) 5 %; Neutrophils # (A) 8.4 k/uL (1.3-7.7); Neutrophils % (A) 82 %; Platelet Count 379 k/uL (150-450); RBC 4.77 m/uL (3.80-5.40); RDW 16.7 % (11.5-15.5); WBC 10.3 k/uL (3.8-10.6)
[2024-01-05 11:46] LABS: African American GFR (CKD) 78 (>60 ml/min/1.73 sqM); Anion Gap 8 mmol/L; Blood Urea Nitrogen 16 mg/dL (7-17); Calcium 9.1 mg/dL (8.4-10.2); Carbon Dioxide 27 mmol/L (22-30); Chloride 100 mmol/L (98-107); Glucose 228 mg/dL (74-99); Non-African American GFR(CKD) 68 (>60 ml/min/1.73 sqM); Potassium 4.6 mmol/L (3.5-5.1); Sodium 135 mmol/L (137-145)
[2024-01-05 12:02] LABS: Glucose,Whole Blood 194 mg/dL (70-110)
--- NOTE | 2024-01-05 14:10 | PN ---
PROGRESS NOTE DATE OF SERVICE: 01/05/2024 SUBJECTIVE: This is a 68-year-old woman who was admitted with shortness of breath, possibly secondary to COPD and CHF, improving slightly. No chest pain, no palpitation. A chest x-ray showed some fluid overload. Procalcitonin is elevated. OBJECTIVE: VITAL SIGNS: Pulse is 69, blood pressure 140/70, respirations 18. CHEST: Few scattered rhonchi. ABDOMEN: Soft. NERVOUS SYSTEM: No focal deficits. LABORATORY DATA: Sodium 135, glucose 228. ASSESSMENT: 1. Shortness of breath, possibly multifactorial secondary to COPD acute exacerbation as well as CHF acute exacerbation, acute on chronic systolic dysfunction, ejection fraction 50%. 2. Rule out pneumonia. 3. Elevated procalcitonin. 4. Diabetes mellitus type 2. 5. Hypertension. 6. History of headaches. 7. Rheumatoid arthritis. 8. Long QT syndrome history, current QTc is 450 milliseconds. 9. Continued ongoing nicotine dependence. 10.Hyponatremia. 11.Hypoglycemia. RECOMMENDATIONS: Recommended to continue current medications, continue symptomatic treatment, otherwise closely follow with Cardiology, pulmonology. Continue with bronchodilators. Prognosis guarded. Further recommendations to follow. MMODL / IJN: [id number] /
[2024-01-05 17:14] LABS: Glucose,Whole Blood 287 mg/dL (70-110)
[2024-01-05 21:26] LABS: Glucose,Whole Blood 225 mg/dL (70-110)
[2024-01-06 06:11] LABS: Glucose,Whole Blood 182 mg/dL (70-110)
[2024-01-06 07:49] VITALS: BP 125/73; RESP 18; TEMP 97.6
[2024-01-06 08:46] LABS: BUN/Creat Ratio 15.82 Ratio (12.00-20.00); Blood Urea Nitrogen 17.4 mg/dL (9.0-27.0); Calcium 9.3 mg/dL (8.7-10.3); Carbon Dioxide 26.2 mmol/L (21.6-31.8); Chloride 100 mmol/L (96-109); Glucose 264 mg/dL (70-110); Potassium 5.3 mmol/L (3.5-5.5); Sodium 137 mmol/L (135-145)
[2024-01-06] MEDS: predniSONE 20 MG TAB PO SCH (08:55)
[2024-01-06 09:11] LABS: Basophils # (A) 0.02 X 10*3/uL (0.00-0.10); Basophils % (A) 0.1 %; Eosinophils # (A) 0 X 10*3/uL (0.04-0.35); Eosinophils % (A) 0 %; HCT 41.9 % (37.2-46.3); Lymphocytes # (A) 1.22 X 10*3/uL (0.90-5.00); Lymphocytes % (A) 8.5 %; MCH 27.5 pg (27.0-32.0); MCV 88.8 FL (80.0-97.0); Mean Platelet Volume 9.2 FL (9.5-12.2); Monocytes # (A) 0.58 X 10*3/uL (0.20-1.00); Monocytes % (A) 4.1 %; NRBC Per 100 WBC 0 X 10*3/uL (0.00-0.01); Neutrophils # (A) 12.41 X 10*3/uL (1.80-7.70); Neutrophils % (A) 86.7 %; Platelet Count 387 X 10*3/uL (140-440); RBC 4.72 X 10*6/uL (4.10-5.20); RDW 17.6 % (11.5-14.5); WBC 14.32 X 10*3/uL (4.50-10.00)
--- NOTE | 2024-01-06 10:00 | P.PN ---
Subjective Progress Note Date: 01/06/24 Consult reason: congestive heart failure History of present illness: This is a 68-year-old female patient of Dr. Soriano with past medical history of hypertension, diabetes mellitus type 2, morbid obesity with BMI of 64, hyperlipidemia, hypothyroidism, COPD, chronic hypoxic respiratory failure on home O2, tobacco use and dependence. We have been asked to evaluate the patient for CHF. Patient has had more lower extremity edema that is gradually worsening over the past several days with some shortness of breath. No fever or chills. No chest pain. Blood pressure 114/71, heart rate 80, pulse ox 95% on 2 L nasal cannula. She is status post IV Lasix 40 mg every 12 hours and IV Solu-Medrol, nebulizers. She states she is an active smoker and she is also on home O2. EKG: Sinus rhythm with no acute ST changes. Chest x-ray: Diffuse interstitial opacity of the lungs worse in the lung bases correlate for heart failure with serum BNP. Laboratory studies: WBC 7.4, hemoglobin 13.7. Sodium 136, potassium 4.9, glucose 47. Procalcitonin 0.11. Troponin negative x 1. proBNP 678. Influenza A, influenza B, RSV, COVID-19 not detected. Home cardiac medications: Atorvastatin 20 mg daily, Lasix 20 mg daily, losartan 50 mg daily, Lopressor 25 mg twice daily, also on levothyroxine and nicotine patch. Patient denies taking Lasix at home. Echocardiogram performed July 2023 revealed EF of 50%, technically difficult and limited views. Echocardiogram performed 08/03/2023 reveals EF 50%, technically difficult and limited views. 01/05 Patient is seen today in follow-up. She states her breathing is better and she is ready to go home. She has noted to have some wheezing which she stated is due to her asthma. Yesterday we transition IV Lasix to oral torsemide and added Farxiga and Aldactone. Blood pressure 125/73, heart rate 64, pulse ox 92% on room air. Repeat blood work reveals WBC 14.3, hemoglobin 13. Sodium 137, potassium 5.3, creatinine 1.1. Patient states that she was been seen by pulmonary medicine this morning cleared for discharge. Physical examination: Gen: This is a 68-year-old morbidly obese black female in no acute respiratory distress VS: reviewed HEENT: Head is atraumatic, normocephalic. Pupils equal, round. Sclerae is anicteric. NECK: Supple. No JVD. LUNGS: Bilateral expiratory wheezing no intercostal retractions. HEART: Regular rate and rhythm. No murmur. ABDOMEN: Soft No tenderness. EXTREMITIES: Minimal bilateral lower extremity edema. No calf tenderness. NEUROLOGICAL: Patient is awake, alert and oriented x3. Assessment: Acute on chronic hypoxic respiratory failure secondary to COPD exacerbation, po ssible pneumonia, and possible mild component of acute diastolic heart failure Hypertension Diabetes mellitus type 2 Morbid obesity with BMI of 64 Hyperlipidemia Hypothyroidism Tobacco use and dependence Plan: Continue patient's home cardiac medications Continue patient on torsemide 10 mg daily Continue patient on Farxiga 10 mg daily and Aldactone 25 mg daily Patient is cleared for discharge and may follow-up with Dr. Soriano in 1 to 2 weeks. Nurse practitioner note has been reviewed, I agree with documented findings and plan of care. Patient was seen and examined. Objective - Vital Signs Vital signs: Vital Signs Temp 97.6 F 01/06/24 07:00 Pulse 70 01/06/24 08:36 Resp 18 01/06/24 07:00 BP 125/73 01/06/24 07:00 Pulse Ox 98 01/06/24 08:21 FiO2 Intake & Output 01/05/24 01/06/24 01/06/24 18:59 06:59 18:59 Intake Total 354 120 Balance 354 120 Weight 208.652 kg Intake: Oral 354 120 Other: Voiding Method Toilet Toilet # Voids 2 1 - Labs CBC & Chem 7: 01/06/24 04:03 01/06/24 04:03 Labs: Abnormal Lab Results - Last 24 Hours (Table) 01/05/24 01/05/24 01/05/24 Range/Units 10:39 10:39 10:39 WBC (4.50-10.00) X 10*3/uL MCHC 29.3 L (31.0-37.0) g/dL RDW 16.7 H (11.5-15.5) % MPV (9.5-12.2) FL Immature Gran # (0.00-0.04) X 10*3/uL Neutrophils # 8.4 H (1.3-7.7) k/uL Eosinophils # (0.04-0.35) X 10*3/uL Sodium 135 L (137-145) mmol/L Est GFR (CKD-EPI) (>=60) Glucose 228 H (74-99) mg/dL POC Glucose (mg/dL) (70-110) mg/dL Hemoglobin A1c 6.6 H (<=6.0) % 01/05/24 01/05/24 01/05/24 Range/Units 12:00 17:13 21:24 WBC (4.50-10.00) X 10*3/uL MCHC (31.0-37.0) g/dL RDW (11.5-15.5) % MPV (9.5-12.2) FL Immature Gran # (0.00-0.04) X 10*3/uL Neutrophils # (1.3-7.7) k/uL Eosinophils # (0.04-0.35) X 10*3/uL Sodium (137-145) mmol/L Est GFR (CKD-EPI) (>=60) Glucose (74-99) mg/dL POC Glucose (mg/dL) 194 H 287 H 225 H (70-110) mg/dL Hemoglobin A1c (<=6.0) % 01/06/24 01/06/24 01/06/24 Range/Units 04:03 04:03 06:09 WBC 14.32 H (4.50-10.00) X 10*3/uL MCHC 31.0 L (31.0-37.0) g/dL RDW 17.6 H (11.5-15.5) % MPV 9.2 L (9.5-12.2) FL Immature Gran # 0.09 H (0.00-0.04) X 10*3/uL Neutrophils # 12.41 H (1.3-7.7) k/uL Eosinophils # 0 L (0.04-0.35) X 10*3/uL Sodium (137-145) mmol/L Est GFR (CKD-EPI) 55 L (>=60) Glucose 264 H (74-99) mg/dL POC Glucose (mg/dL) 182 H (70-110) mg/dL Hemoglobin A1c (<=6.0) %
[2024-01-06 12:01] LABS: Glucose,Whole Blood 158 mg/dL (70-110)
[2024-01-06 12:53] VITALS: PULSE 66
--- NOTE | 2024-01-06 13:18 | P.PN ---
Subjective Progress Note Date: 01/06/24 Patient is a 68-year-old -Pakistani female with past medical history significant for COPD, chronic oxygen dependence, obstructive sleep apnea without home CPAP, chronic ongoing tobacco dependence, hypertension, hyperlipidemia, hypothyroidism, type 2 diabetes, morbid obesity, among other things. Her primary care provider is a Megan Alejandro out of [place]. She continues to smoke approximately 1 pack/day. She utilizes combination of Symbicort inhaler, albuterol nebs, and as needed albuterol rescue inhaler. She is chronically oxygen dependent on 3 L/min nasal cannula. She presents yesterday afternoon complaining of progressively worsening shortness of breath over the last couple days associated with increased lower extremity swelling. No associated chest pain. Denies orthopnea or PND. States she has not been compliant with her Lasix. Denies sick contacts. Denies any fevers. Does admit increasing coughing with occasional yellow sputum production. Chest x-ray consistent with bilateral airspace opacities superimposed on chronic interstitial pattern. CBC unremarkable, no leukocytosis. BMP also unremarkable. Troponin less than 0.012. NT proBNP only mildly elevated at 678. EKG shows normal sinus rhythm with nonspecific ST abnormalities. Most recent available echocardiogram from 08/03/2023 demonstrates a preserved left ventricular ejection fraction of 50%, no significant valvular abnormalities noted. Procalcitonin has resulted at 0.11. Negative for influenza, RSV, COVID. She is currently sitting at the edge of the bed, on 4 L/min nasal cannula. Not in any respiratory distress. Afebrile. Hemodynamically stable. The patient is seen today January 06, 2024 in follow-up on the regular medical floor. She is currently sitting up in bed. Awake and alert in no acute distress. She is maintaining O2 saturations in the 90s on 2 L/min per nasal cannula. She is continue on DuoNeb ventilations, Symbicort, Solu-Medrol. NicoDerm patch in place. Antibiotics in the form of azithromycin. Procalcitonin was 0.11. White count 14.3. Hemoglobin 13.0. Platelets 387. Sodium 137. PET potassium 5.3. Bicarb 26. BUN 17. Creatinine 1.1. Glucose 264. Objective - Vital Signs Vital signs: Vital Signs Temp 97.6 F 01/06/24 07:00 Pulse 66 01/06/24 12:52 Resp 18 06/28/24 08:20 BP 125/73 01/06/24 07:00 Pulse Ox 98 01/06/24 08:21 FiO2 Intake & Output 01/05/24 01/06/24 01/06/24 18:59 06:59 18:59 Intake Total 354 120 Balance 354 120 Weight 208.652 kg Intake: Oral 354 120 Other: Voiding Method Toilet Toilet Toilet # Voids 2 1 - Exam GENERAL EXAM: Alert, very pleasant 68-year-old female, sitting up in bed, comfortable in no apparent distress. HEAD: Normocephalic and atraumatic EYES: Normal reaction of pupils, equal size. NOSE: Clear with pink turbinates. THROAT: No erythema or exudates. NECK: No masses, no JVD. CHEST: No chest wall deformity. LUNGS: Equal air entry with minimal bibasilar inspiratory crackles. No wheezing, rhonchi, focal dullness. No conversational dyspnea. CVS: S1 and S2 normal with no audible murmur, regular rhythm. No extra heart sounds ABDOMEN: No hepatosplenomegaly, active bowel sounds, no guarding or rigidity. SPINE: No scoliosis or deformity SKIN: No rashes CENTRAL NERVOUS SYSTEM: No focal deficits, tone is normal in all 4 extremities. EXTREMITIES: There is bilateral lower extremity pitting edema, 1+. No clubbing, or cyanosis. Peripheral pulses are intact. - Labs CBC & Chem 7: 01/06/24 04:03 01/06/24 04:03 Labs: Abnormal Lab Results - Last 24 Hours (Table) 01/05/24 01/05/24 01/05/24 Range/Units 10:39 17:13 21:24 WBC (4.50-10.00) X 10*3/uL MCHC (32.0-37.0) g/dL RDW (11.5-14.5) % MPV (9.5-12.2) FL Immature Gran # (0.00-0.04) X 10*3/uL Neutrophils # (1.80-7.70) X 10*3/uL Eosinophils # (0.04-0.35) X 10*3/uL Est GFR (CKD-EPI) (>=60) Glucose (70-110) mg/dL POC Glucose (mg/dL) 287 H 225 H (70-110) mg/dL Hemoglobin A1c 6.6 H (<=6.0) % 01/06/24 01/06/24 01/06/24 Range/Units 04:03 04:03 06:09 WBC 14.32 H (4.50-10.00) X 10*3/uL MCHC 31.0 L (32.0-37.0) g/dL RDW 17.6 H (11.5-14.5) % MPV 9.2 L (9.5-12.2) FL Immature Gran # 0.09 H (0.00-0.04) X 10*3/uL Neutrophils # 12.41 H (1.80-7.70) X 10*3/uL Eosinophils # 0 L (0.04-0.35) X 10*3/uL Est GFR (CKD-EPI) 55 L (>=60) Glucose 264 H (70-110) mg/dL POC Glucose (mg/dL) 182 H (70-110) mg/dL Hemoglobin A1c (<=6.0) % 01/06/24 Range/Units 11:58 WBC (4.50-10.00) X 10*3/uL MCHC (32.0-37.0) g/dL RDW (11.5-14.5) % MPV (9.5-12.2) FL Immature Gran # (0.00-0.04) X 10*3/uL Neutrophils # (1.80-7.70) X 10*3/uL Eosinophils # (0.04-0.35) X 10*3/uL Est GFR (CKD-EPI) (>=60) Glucose (70-110) mg/dL POC Glucose (mg/dL) 158 H (70-110) mg/dL Hemoglobin A1c (<=6.0) % Assessment and Plan Assessment: Acute on chronic hypoxemic respiratory failure, likely secondary to a combination of diastolic CHF exacerbation and possible mild COPD exacerbation. Chest x-ray consistent with bilateral airspace opacities superimposed on chronic interstitial pattern, clinically doubt pneumonia. Does report increased lower extremity swelling. NT proBNP only mildly elevated at 678. Chronic obstructive pulmonary disease Chronic hypoxemic respiratory failure, normally maintained on 3 L/min nasal cannula while at home, secondary to above Chronic ongoing tobacco dependence, down to 1 pack/day History of obstructive sleep apnea, without home CPAP, machine is reportedly broke History of hypertension History of hyperlipidemia History of hypothyroidism Type 2 diabetes mellitus, not insulin-dependent Morbid obesity, with a BMI of 64.2 kg/m Plan: The patient was seen and evaluated Medications and labsreviewed Stable for discharge from the pulmonary standpoint Continue her home pulmonary medications, oxygen Complete a prednisone taper Complete a course of antibiotics Educated regarding complete smoking cessation Follow-up in our office in 1 week This patient was seen independently by the pulmonary nurse practitioner addressing pulmonary issues I have personally seen and examined the patient, performed the documentation and the assessment and plan as written. Number of minutes spent on the visit: 24.
--- NOTE | 2024-01-07 19:06 | P.DS ---
Providers Date of admission: 01/04/24 15:21 Expected date of discharge: 01/06/24 Attending physician: Altaf Esquivel MD Consults: 01/04/24 16:44 Consult Physician Routine Consulting Provider: Twin Bronson Consult Reason/Comments: copd Do you want consulting provider notified?: Yes Consult Physician Routine Consulting Provider: Marcus Elizondo Consult Reason/Comments: chf Do you want consulting provider notified?: Yes Primary care physician: Amaya Chang Hospital Course: Final diagnosis Shortness of breath, multifactorial secondary to COPD acute exacerbation as well as CHF acute exacerbation History of acute on chronic systolic dysfunction, EF is 50% Acute on chronic hypoxic respiratory failure secondary to CHF as well as COPD Elevated procalcitonin Diabetes mellitus, type II, uncontrolled with hyper and hypoglycemia Hypertension Rheumatoid arthritis history Long QT syndrome history Continued ongoing nicotine dependence Hyponatremia Morbid obesity with a BMI of 64.0 GI prophylaxis Prophylaxis Full code Discharge disposition Patient is being discharged in a stable condition with guarded prognosis to home. Patient will follow-up with Dr. Megan Chang in the outpatient setting upon discharge. Patient is to continue with prednisone taper and medications per cardiology with close outpatient follow-up with cardiology as well as pulmonary as scheduled. Total time taken is greater than 35 minutes. Hospital course This is a 68-year-old female who was recently admitted with increased shortness of breath multifactorial secondary to COPD as well as CHF exacerbation. Patient maintained on diuretics as well as IV steroids and DuoNeb treatments with pulmonary and cardiology following. Adjustments to medications made showing some improvements in chest x-ray with improvement. Patient has been cleared by consultants discharge home and has been instructed to follow-up with primary care provider along with cardiology and pulmonary in the next 1 to 2 weeks. Please refer to other consultation notes for further HPI. Currently no reports of chest pain, shortness of breath, or palpitations. Patient is afebrile. No reports of nausea or vomiting and patient is tolerating diet. Patient will be discharged home today. Guarded prognosis given significant comorbidities. Physical exam: Gen: This is a 68-year-old female who is awake, alert and oriented x 3, well- developed, well-nourished, elderly appearing, morbidly obese HEENT: Head is atraumatic, normocephalic. Pupils equal, round. Sclerae is anicteric. NECK: Supple. No JVD. No lymphadenopathy. No thyromegaly. LUNGS: Diminished breath sounds bilaterally with some faint expiratory wheezes and coarse rhonchi. No intercostal retractions. HEART: S1, S2 are muffled ABDOMEN: Soft. Morbidly obese bowel sounds are present. No masses. No tenderness. EXTREMITIES: No pedal edema. No calf tenderness. NEUROLOGICAL: Patient is awake, alert and oriented x3. Cranial nerves 2 through 12 are grossly intact. Please refer to medication reconciliation sheet for a list of medications. The impression and plan of care has been dictated by Kailee Hyde, Nurse Practitioner as directed. Dr. Linden MD I have performed a history and examination and MDM of this patient, discussed the same with the dictator, and agree with the dictator's assessment and plan as written ,documented as a scribe. Based on total visit time, I have performed more than 50% of the visit. Patient Condition at Discharge: Stable Plan - Discharge Summary Discharge Rx Participant: No New Discharge Prescriptions: New Ipratropium-Albuterol Nebulize [Duoneb 0.5 mg-3 mg/3 ml Soln] 3 ml INHALATION RT-QID #100 each Ipratropium-Albuterol Nebulize [Duoneb 0.5 mg-3 mg/3 ml Soln] 3 ml INHALATION RT-Q2H PRN each PRN Reason: Shortness Of Breath Or Wheezing Dapagliflozin Propanediol [Farxiga] 10 mg PO DAILY #30 tab Spironolactone [Aldactone] 25 mg PO DAILY #30 tab Torsemide [Demadex] 10 mg PO DAILY 30 Days #15 tab predniSONE 10 mg PO DIRECTED #30 tab Continue metFORMIN HCL [Glucophage] 1,000 mg PO DAILY Albuterol Sulfate [Proair Hfa] 2 puff INHALATION RT-Q6H PRN PRN Reason: Shortness Of Breath Atorvastatin [Lipitor] 20 mg PO DAILY Albuterol Nebulized [Ventolin Nebulized] 2.5 mg INHALATION RT-Q6H PRN PRN Reason: Shortness Of Breath Metoprolol Tartrate [Lopressor] 25 mg PO BID #60 tab Budesonide/Formoterol Fumarate [Symbicort 160-4.5 Mcg Inhaler] 2 puff INHALATION RT-BID Isaban Xl(Unknown Dose) 1 cap PO DAILY Losartan Potassium 50 mg PO DAILY Levothyroxine Sodium [Synthroid] 175 mcg PO DAILY Nicotine 21Mg/24Hr Patch [Habitrol] 1 patch TRANSDERM DAILY #14 patch glyBURIDE [Diabeta] 5 mg PO DAILY Discontinued Furosemide [Lasix] 20 mg PO DAILY #60 tab Discharge Medication List metFORMIN HCL [Glucophage] 1,000 mg PO DAILY 09/08/16 [History] Albuterol Sulfate [Proair Hfa] 2 puff INHALATION RT-Q6H PRN 04/19/17 [History] Atorvastatin [Lipitor] 20 mg PO DAILY 04/19/17 [History] Albuterol Nebulized [Ventolin Nebulized] 2.5 mg INHALATION RT-Q6H PRN 02/26/19 [History] Metoprolol Tartrate [Lopressor] 25 mg PO BID #60 tab 02/28/19 [Rx] Budesonide/Formoterol Fumarate [Symbicort 160-4.5 Mcg Inhaler] 2 puff INHALATION RT-BID 08/03/23 [History] Levothyroxine Sodium [Synthroid] 175 mcg PO DAILY 08/03/23 [History] Losartan Potassium 50 mg PO DAILY 08/03/23 [History] Nicotine 21Mg/24Hr Patch [Habitrol] 1 patch TRANSDERM DAILY #14 patch 08/05/23 [Rx] Isaban Xl(Unknown Dose) 1 cap PO DAILY 01/04/24 [History] glyBURIDE [Diabeta] 5 mg PO DAILY 01/04/24 [History] Dapagliflozin Propanediol [Farxiga] 10 mg PO DAILY #30 tab 01/06/24 [Rx] Ipratropium-Albuterol Nebulize [Duoneb 0.5 mg-3 mg/3 ml Soln] 3 ml INHALATION RT-Q2H PRN each 01/06/24 [Rx] Ipratropium-Albuterol Nebulize [Duoneb 0.5 mg-3 mg/3 ml Soln] 3 ml INHALATION RT-QID #100 each 01/06/24 [Rx] Spironolactone [Aldactone] 25 mg PO DAILY #30 tab 01/06/24 [Rx] Torsemide [Demadex] 10 mg PO DAILY 30 Days #15 tab 01/06/24 [Rx] predniSONE 10 mg PO DIRECTED #30 tab 01/06/24 [Rx] Follow up Appointment(s)/Referral(s): Min Soriano MD [STAFF PHYSICIAN] - 1 Week (Office will call with appointment time and date) Twin Bronson DO [Doctor of Osteopathic Medicine] - 1 Week Amaya Chang MD [Primary Care Provider] - 1-2 days Patient Instructions/Handouts: Asthma (DC), COPD (Chronic Obstructive Pulmonary Disease) (DC) Activity/Diet/Wound Care/Special Instructions: DR BRONSON WANTS PT TO FOLLOW UP WITH OFFICE AFTER DISCHARGE. Activity limited until follow-up Follow-up with primary care provider on discharge Follow-up with cardiology outpatient Follow-up with pulmonary in 1 to 2 weeks Continue taking medications as prescribed Continue prednisone taper until finished Monitor blood pressures daily and keep a diary of all readings for primary, cardiology follow-up Discharge Disposition: HOME SELF-CARE
== END 2024-01-06 13:23 | disposition home or self-care (01) ==
LOC: EC 12:43 → 6NMEDSUR 15:21
PROVIDERS: ADMIT Internal Medicine; ATTEND Internal Medicine
DX: J44.1 Chronic obstructive pulmonary disease with (acute) exacerbation (principal); I45.81 Long QT syndrome; I50.43 Acute on chronic combined systolic (congestive) and diastolic (congestive) heart failure; I44.0 Atrioventricular block, first degree; I11.0 Hypertensive heart disease with heart failure; J96.21 Acute and chronic respiratory failure with hypoxia; Z99.81 Dependence on supplemental oxygen; Z91.148 Patient's other noncompliance with medication regimen for other reason; Z80.1 Family history of malignant neoplasm of trachea, bronchus and lung; Z79.899 Other long term (current) drug therapy; Z79.84 Long term (current) use of oral hypoglycemic drugs; Z79.52 Long term (current) use of systemic steroids; Z79.51 Long term (current) use of inhaled steroids; Z68.44 Body mass index [BMI] 60.0-69.9, adult; E87.1 Hypo-osmolality and hyponatremia; M06.9 Rheumatoid arthritis, unspecified
CPT/HCPCS: 96376 ×3; 96374; 96375; 99285; 36415; 94640 ×6; 94760 ×2; 93005; 83880; 80053; 80048 ×2; 83735; 84484; 85025 ×3; 85610; 85730; 83036; 84145; 87636; 71045; 71046; G0378 ×3; S4990 ×3; J1940; J7512; J2919 ×3

== ENCOUNTER 2024-01-13 00:29 | Emergency (ER) | payer MEDICARE, OTHER ==
[2024-01-13 00:34] VITALS: RESP 18; TEMP 97.4
[2024-01-13 01:49] LABS: Anisocytosis Slight; Basophils % (A) 0 %; Eosinophils # (A) 0.3 k/uL (0-0.7); Eosinophils % (A) 3 %; HCT 47.4 % (34.0-46.0); HGB 14.5 gm/dL (11.4-16.0); Hypochromasia Slight; Lymphocytes % (A) 35 %; MCH 27.7 pg (25.0-35.0); MCHC 30.6 g/dL (31.0-37.0); MCV 90.3 fL (80.0-100.0); Mean Platelet Volume 7.2; Monocytes # (A) 0.5 k/uL (0-1.0); Monocytes % (A) 5 %; Neutrophils # (A) 4.6 k/uL (1.3-7.7); Neutrophils % (A) 54 %; Platelet Count 288 k/uL (150-450); RBC 5.25 m/uL (3.80-5.40); RDW 16.7 % (11.5-15.5); WBC 8.6 k/uL (3.8-10.6)
[2024-01-13 01:53] LABS: INR 0.9 (<1.2); Partial Thromboplastin Time 25.1 sec (22.0-30.0); Prothrombin Time 10.3 sec (10.0-12.5)
[2024-01-13 01:54] LABS: ALT 16 U/L (4-34); AST 20 U/L (14-36); African American GFR (CKD) 60 (>60 ml/min/1.73 sqM); Albumin 3.6 g/dL (3.5-5.0); Alkaline Phosphatase 113 U/L (38-126); Amylase 54 U/L (30-110); Anion Gap 6 mmol/L; Blood Urea Nitrogen 24 mg/dL (7-17); Calcium 9.3 mg/dL (8.4-10.2); Carbon Dioxide 28 mmol/L (22-30); Chloride 100 mmol/L (98-107); Glucose 129 mg/dL (74-99); Lipase 122 U/L (23-300); Non-African American GFR(CKD) 52 (>60 ml/min/1.73 sqM); Potassium 4.5 mmol/L (3.5-5.1); Sodium 134 mmol/L (137-145); Total Bilirubin 0.5 mg/dL (0.2-1.3); Total Protein 6.3 g/dL (6.3-8.2)
[2024-01-13] MEDS: ONDANSETRON 4 MG/2 ML VIAL IVP STA (01:54)
[2024-01-13] MEDS: KETOROLAC 15 MG/ML 1 ML VIAL IVP STA (01:55)
[2024-01-13] MEDS: PANTOPRAZOLE 40 MG/10 ML VIAL IVP STA (01:55)
[2024-01-13] MEDS: SODIUM CHLORIDE 0.9% 1,000 ML IV ONE (02:58)
--- NOTE | 2024-01-13 04:10 | CT ---
EXAM: CT Abdomen and Pelvis With Intravenous Contrast CLINICAL HISTORY: ITS.REASON CT Reason: abdominal pain. generalized TECHNIQUE: Axial computed tomography images of the abdomen and pelvis with intravenous contrast. CTDI is 52.1 mGy and DLP is 2762.7 mGy-cm. This CT exam was performed using one or more of the following dose reduction techniques: automated exposure control, adjustment of the mA and/or kV according to patient size, and/or use of iterative reconstruction technique. COMPARISON: No relevant prior studies available. FINDINGS: Lung bases: Unremarkable. No mass. No consolidation. ABDOMEN: Liver: Hepatic steatosis. Gallbladder and bile ducts: Unremarkable. No calcified stones. No ductal dilation. Pancreas: Unremarkable. No mass. No ductal dilation. Spleen: Unremarkable. No splenomegaly. Adrenals: Unremarkable. No mass. Kidneys and ureters: Unremarkable. No solid mass. No hydronephrosis. Stomach and bowel: Mild fecal retention, correlate for constipation. No small bowel obstruction. No free air. No mucosal thickening. PELVIS: Appendix: No findings to suggest acute appendicitis. Bladder: Unremarkable. No mass. Reproductive: Unremarkable as visualized. ABDOMEN and PELVIS: Intraperitoneal space: See above. Bones/joints: No acute fracture. No dislocation. Soft tissues: Unremarkable. Vasculature: Unremarkable. No abdominal aortic aneurysm. Lymph nodes: Unremarkable. No enlarged lymph nodes. IMPRESSION: 1. Hepatic steatosis. 2. Mild fecal retention, correlate for constipation. No small bowel obstruction. No free air.
--- NOTE | 2024-01-13 04:47 | ED ---
General Adult HPI - General Chief complaint: Abdominal Pain Stated complaint: Abd pain Time Seen by Provider: 01/13/24 00:55 Source: patient, RN notes reviewed, old records reviewed Mode of arrival: ambulatory Limitations: no limitations - History of Present Illness Initial comments: Patient is a 68-year-old female who presents emergency department complaining of abdominal pain. States she drank soda and ate a watermelon 3 days ago. Since that time has been having intermittent abdominal pain. States it is periumbilical in nature. No history of abdominal surgeries. History of heart failure. Denies any nausea or vomiting. Denies any diarrhea. May be mild constipation. Has no other acute complaints at this time. Presents for further evaluation. Still passing gas. Last bowel movement was a few days ago. Describes the pain is a burning sensation. No radiation. - Related Data Home Medications Medication Instructions Recorded Confirmed metFORMIN HCL [Glucophage] 1,000 mg PO DAILY 09/08/16 01/04/24 Albuterol Sulfate [Proair Hfa] 2 puff INHALATION RT-Q6H PRN 04/19/17 01/04/24 Atorvastatin [Lipitor] 20 mg PO DAILY 04/19/17 01/04/24 Albuterol Nebulized [Ventolin 2.5 mg INHALATION RT-Q6H PRN 02/26/19 01/04/24 Nebulized] Budesonide/Formoterol Fumarate 2 puff INHALATION RT-BID 08/03/23 01/04/24 [Symbicort 160-4.5 Mcg Inhaler] Levothyroxine Sodium [Synthroid] 175 mcg PO DAILY 08/03/23 01/04/24 Losartan Potassium 50 mg PO DAILY 08/03/23 01/04/24 Mereta Xl(Unknown Dose) 1 cap PO DAILY 01/04/24 01/04/24 glyBURIDE [Diabeta] 5 mg PO DAILY 01/04/24 01/04/24 Previous Rx's Medication Instructions Recorded Metoprolol Tartrate [Lopressor] 25 mg PO BID #60 tab 02/28/19 Nicotine 21Mg/24Hr Patch [Habitrol] 1 patch TRANSDERM DAILY #14 patch 08/05/23 Dapagliflozin Propanediol [Farxiga] 10 mg PO DAILY #30 tab 01/06/24 Ipratropium-Albuterol Nebulize 3 ml INHALATION RT-Q2H PRN each 01/06/24 [Duoneb 0.5 mg-3 mg/3 ml Soln] Ipratropium-Albuterol Nebulize 3 ml INHALATION RT-QID #100 each 01/06/24 [Duoneb 0.5 mg-3 mg/3 ml Soln] Spironolactone [Aldactone] 25 mg PO DAILY #30 tab 01/06/24 Torsemide [Demadex] 10 mg PO DAILY 30 Days #15 tab 01/06/24 predniSONE 10 mg PO DIRECTED #30 tab 01/06/24 Docusate [Colace] 100 mg PO DAILY #14 capsule 01/13/24 polyethylene glycoL 3350 [Miralax] 17 gm PO DAILY #14 packet 01/13/24 Allergies Allergy/AdvReac Type Severity Reaction Status Date / Time Latex, Natural Rubber Allergy Rash/Hives Verified 01/13/24 00:34 Penicillins AdvReac Nausea & Verified 01/13/24 00:34 Vomiting Review of Systems ROS Statement: Those systems with pertinent positive or pertinent negative responses have been documented in the HPI. Review of Systems: CONST: Denies fever EYES: Denies blurry vision ENT: Denies nasal congestion C/V: Denies Chest pain RESP: Denies shortness of breath GI: Endorses abdominal pain : Denies dysuria SKIN: Denies rash. MSK: Denies joint pain. NEURO: Denies headache ROS Other: All systems not noted in ROS Statement are negative. Past Medical History Past Medical History: Chest Pain / Angina, Heart Failure, COPD, Diabetes Mellitus, Hypertension, Rheumatoid Arthritis (RA), Thyroid Disorder Additional Past Medical History / Comment(s): see DR Soriano H & P; long QT syndrome History of Any Multi-Drug Resistant Organisms: None Reported Additional Past Surgical History / Comment(s): Past Anesthesia/Blood Transfusion Reactions: Previous Problems w/ Anesthesia Additional Past Anesthesia/Blood Transfusion Reaction / Comment(s): difficulty waking up Past Psychological History: No Psychological Hx Reported Smoking Status: Current every day smoker Past Alcohol Use History: None Reported Past Drug Use History: None Reported - Past Family History Sister(s) Family Medical History: Myocardial Infarction (PA) Father Family Medical History: Cancer Additional Family Medical History / Comment(s): father of lung cancer Mother Family Medical History: Cancer Additional Family Medical History / Comment(s): mother from breast cancer Daughter(s) Additional Family Medical History / Comment(s): daughter from SIDS General Exam - General Exam Comments Initial Comments: General: Appears in no acute distress. HEAD: Normal with no signs of head trauma. EYES: PERRLA, EOMI, conjunctiva normal, no discharge. ENT: Hearing grossly intact, normal oropharynx. RESPIRATORY: Clear breath sounds bilaterally. No wheezes, rales, or rhonchi. C/V: Regular rate and rhythm. S1 and S2 auscultated, no edema, peripheral pulses 2+ and intact throughout ABD: Abdomen is soft, nondistended. Mildly tender to palpation in the periumbilical region. No guarding or rebound tenderness. No peritoneal signs. EXT: Normal range of motion, no obvious deformity SKIN: No rashes or lesions observed on exposed skin. NEURO: Alert and oriented x 4. Cranial nerves II-XII intact. No focal sensory or strength deficits. Limitations: no limitations Course Vital Signs 01/13/24 01/13/24 01/13/24 00:32 02:28 04:16 Temperature 97.4 F L Pulse Rate 83 70 62 Respiratory 18 18 18 Rate Blood Pressure 147/78 108/61 112/67 O2 Sat by Pulse 93 L 99 100 Oximetry 01/13/24 05:17 Temperature Pulse Rate 64 Respiratory 18 Rate Blood Pressure 118/58 O2 Sat by Pulse 100 Oximetry Medical Decision Making - Medical Decision Making Was pt. sent in by a medical professional or institution (, PA, TWIST TESTER, urgent care, hospital, or alf...) When possible be specific @ -No Did you speak to anyone other than the patient for history (EMS, parent, family, police, friend...)? What history was obtained from this source @ -No Did you review nursing and triage notes (agree or disagree)? Why? @ -I reviewed and agree with nursing and triage notes Were old charts reviewed (outside hosp., previous admission, EMS record, old EKG, old radiological studies, urgent care reports/EKG's, alf records)? Report findings @ -Old EKG reviewed from December 2023 which showed no dynamic changes on today's EKG. Differential Diagnosis (chest pain, altered mental status, abdominal pain women, abdominal pain men, vaginal bleeding, weakness, fever, dyspnea, syncope, headache, dizziness, GI bleed, back pain, seizure, CVA, palpatations, mental health, musculoskeletal)? @ -Differential Abdominal Pain Women: Appendicitis, Cholecystitis, diverticulosis, ischemic bowel, pancreatitis, hepatitis, UTI, gastroenteritis, AAA, incarcerated hernia, bowel obstruction, constipation, inflammatory bowel, hepatitis, peptic ulcer disease, splenic infarction, perforated viscus, vulvitis, ovarian torsion, PID, kidney stone, placenta abruption, this is not meant to be an all-inclusive list EKG interpreted by me (3pts min.). @ -As above X-rays interpreted by me (1pt min.). @ -None done CT interpreted by me (1pt min.). @ -CT abdomen pelvis reveals constipation. Patient also has hepatic steatosis. U/S interpreted by me (1pt. min.). @ -None done What testing was considered but not performed or refused? (CT, X-rays, U/S, labs)? Why? @ -None What meds were considered but not given or refused? Why? @ -None Did you discuss the management of the patient with other professionals (professionals i.e. , CACHORRO, TWIST TESTER, lab, RT, psych nurse, social services director, shoe salesperson, teacher, ship officer, therapeutic case manager)? Give summary @ -No Was smoking cessation discussed for >3mins.? @ -No Was critical care preformed (if so, how long)? @ -No Were there social determinants of health that impacted care today? How? (Homelessness, low income, unemployed, alcoholism, drug addiction, transportation, low edu. Level, literacy, decrease access to med. care, half-way, rehab)? @ -No Was there de-escalation of care discussed even if they declined (Discuss DNR or withdrawal of care, Hospice)? DNR status @ -No What co-morbidities impacted this encounter? (DM, HTN, Smoking, COPD, CAD, Cancer, CVA, ARF, Chemo, Hep., AIDS, mental health diagnosis, sleep apnea, morbid obesity)? @ -None Was patient admitted / discharged? Hospital course, mention meds given and route, prescriptions, significant lab abnormalities, going to OR and other pertinent info. @ -Patient presents with abdominal pain. We will obtain abdominal workup. Cachorro salguero symptomatically treated with IV Zofran, analgesia medications. She was in agreement this plan. Patient will receive a small fluid bolus as she did receive IV contrast for CT. Vital signs within acceptable limits. Laboratory studies unremarkable. EKG unremarkable. CT shows constipation. On reevaluation, patient is feeling improved. She will be discharged home at this time. She was in agreement this plan. Strict return precautions discussed. I will provide the patient with a prescription for docusate, MiraLAX. I instructed the patient to follow up with their PCP in the next 1-3 days.. I explained that the patient should return to the emergency department if they experience any worsening symptoms. Strict return precautions were discussed with the patient. The patient expressed understanding of these instructions. I answered all questions that the patient had. The patient was discharged home in good condition with their prescriptions and follow up information. Undiagnosed new problem with uncertain prognosis? @ -No Drug Therapy requiring intensive monitoring for toxicity (Heparin, Nitro, Insulin, Cardizem)? @ -No Were any procedures done? @ -No Diagnosis/symptom? @ -Constipation Acute, or Chronic, or Acute on Chronic? @ -Acute Uncomplicated (without systemic symptoms) or Complicated (systemic symptoms)? @ -Uncomplicated Side effects of treatment? @ -No Exacerbation, Progression, or Severe Exacerbation? @ -No Poses a threat to life or bodily function? How? (Chest pain, [place], PA, pneumonia, PE, COPD, DKA, ARF, appy, cholecystitis, CVA, Diverticulitis, Homicidal, Suicidal, threat to staff... and all critical care pts) @ -No - Lab Data Result diagrams: 01/13/24 01:27 01/13/24 01:27 Lab Results 01/13/24 01/13/24 01/13/24 Range/Units 01:27 01:27 01:27 WBC 8.6 (3.8-10.6) k/uL RBC 5.25 (3.80-5.40) m/uL Hgb 14.5 (11.4-16.0) gm/dL Hct 47.4 H (34.0-46.0) % MCV 90.3 (80.0-100.0) fL MCH 27.7 (25.0-35.0) pg MCHC 30.6 L (31.0-37.0) g/dL RDW 16.7 H (11.5-15.5) % Plt Count 288 (150-450) k/uL MPV 7.2 Neutrophils % 54 % Lymphocytes % 35 % Monocytes % 5 % Eosinophils % 3 % Basophils % 0 % Neutrophils # 4.6 (1.3-7.7) k/uL Lymphocytes # 3.0 (1.0-4.8) k/uL Monocytes # 0.5 (0-1.0) k/uL Eosinophils # 0.3 (0-0.7) k/uL Basophils # 0.0 (0-0.2) k/uL Hypochromasia Slight Anisocytosis Slight PT 10.3 (10.0-12.5) sec INR 0.9 (<1.2) APTT 25.1 (22.0-30.0) sec Sodium 134 L (137-145) mmol/L Potassium 4.5 (3.5-5.1) mmol/L Chloride 100 (98-107) mmol/L Carbon Dioxide 28 (22-30) mmol/L Anion Gap 6 mmol/L BUN 24 H (7-17) mg/dL Creatinine 1.11 H (0.52-1.04) mg/dL Est GFR (CKD-EPI)AfAm 60 (>60 ml/min/1.73 sqM) Est GFR (CKD-EPI)NonAf 52 (>60 ml/min/1.73 sqM) Glucose 129 H (74-99) mg/dL Plasma Lactic Acid Asim (0.7-2.0) mmol/L Calcium 9.3 (8.4-10.2) mg/dL Total Bilirubin 0.5 (0.2-1.3) mg/dL AST 20 (14-36) U/L ALT 16 (4-34) U/L Alkaline Phosphatase 113 (38-126) U/L Total Protein 6.3 (6.3-8.2) g/dL Albumin 3.6 (3.5-5.0) g/dL Amylase 54 (30-110) U/L Lipase 122 (23-300) U/L 01/13/24 Range/Units 01:27 WBC (3.8-10.6) k/uL RBC (3.80-5.40) m/uL Hgb (11.4-16.0) gm/dL Hct (34.0-46.0) % MCV (80.0-100.0) fL MCH (25.0-35.0) pg MCHC (31.0-37.0) g/dL RDW (11.5-15.5) % Plt Count (150-450) k/uL MPV Neutrophils % % Lymphocytes % % Monocytes % % Eosinophils % % Basophils % % Neutrophils # (1.3-7.7) k/uL Lymphocytes # (1.0-4.8) k/uL Monocytes # (0-1.0) k/uL Eosinophils # (0-0.7) k/uL Basophils # (0-0.2) k/uL Hypochromasia Anisocytosis PT (10.0-12.5) sec INR (<1.2) APTT (22.0-30.0) sec Sodium (137-145) mmol/L Potassium (3.5-5.1) mmol/L Chloride (98-107) mmol/L Carbon Dioxide (22-30) mmol/L Anion Gap mmol/L BUN (7-17) mg/dL Creatinine (0.52-1.04) mg/dL Est GFR (CKD-EPI)AfAm (>60 ml/min/1.73 sqM) Est GFR (CKD-EPI)NonAf (>60 ml/min/1.73 sqM) Glucose (74-99) mg/dL Plasma Lactic Acid Asim 1.5 (0.7-2.0) mmol/L Calcium (8.4-10.2) mg/dL Total Bilirubin (0.2-1.3) mg/dL AST (14-36) U/L ALT (4-34) U/L Alkaline Phosphatase (38-126) U/L Total Protein (6.3-8.2) g/dL Albumin (3.5-5.0) g/dL Amylase (30-110) U/L Lipase (23-300) U/L - EKG Data -: EKG Interpreted by Me EKG Comments: 12-lead Electrocardiogram Interpretation Note EKG was reviewed and interpreted by myself. 12-lead ECG performed at 0131 is interpreted by me as revealing normal sinus rhythm at a rate of 72 beats per minute. [place] is normal. OH interval is 204 ms, QRS duration is 89 ms, QTc is 453 ms.. There were no acute ST or T wave abnormalities to suggest myocardial ischemia or injury. R wave progression across the precordium was satisfactory. By my interpretation this EKG is non-diagnostic for acute ischemia. Chronic T wave inversions seen in V3 and V4. Disposition Clinical Impression: Constipation Disposition: HOME SELF-CARE Condition: Good Instructions (If sedation given, give patient instructions): Constipation (ED) Prescriptions: Docusate [Colace] 100 mg PO DAILY #14 capsule polyethylene glycoL 3350 [Miralax] 17 gm PO DAILY #14 packet Is patient prescribed a controlled substance at d/c from ED?: No Referrals: Amaya Chang MD [Primary Care Provider] - 1-2 days Time of Disposition: 04:47
[2024-01-13] MEDS: DOCUSATE 100 MG CAP PO STA (05:15)
[2024-01-13 05:17] VITALS: BP 118/58; PULSE 64
== END 2024-01-13 05:21 | disposition home or self-care (01) ==
LOC: EC 00:29
DX: K59.00 Constipation, unspecified (principal); F17.200 Nicotine dependence, unspecified, uncomplicated; Z91.040 Latex allergy status; Z88.0 Allergy status to penicillin
CPT/HCPCS: 36415; 93005; 80053; 82150; 83605; 83690; 85025; 85610; 85730; 74177; 99284; 96374; 96375 ×2; 96361 ×2; J2405; J1885; Q9967; J2470

== ENCOUNTER → 2024-10-16 | Outpatient (CLI) | payer MEDICARE, OTHER ==
--- NOTE | 2024-10-17 18:10 | CT ---
EXAMINATION TYPE: CT chest wo con DATE OF EXAM: 10/16/2024 9:02 AM COMPARISON: None. CLINICAL INDICATION: Female, 69 years old with history of J84.89 SPECIFIED INTERSTITIAL PULMONARY DIS EASES, TECHNIQUE: Axial images were obtained at 5 mm thick sections. Reconstructed images are reviewed on [employer] computer in the coronal plane. Contrast used: mL of , (none if empty) Oral contrast used: (none if empty) CT DLP: 119 mGycm, Automated exposure control for dose reduction was used. FINDINGS: Portion of the thyroid visualized is normal. No suspicious lung nodules or focal infiltrates are present. There is some diffuse pulmonary fibrosis present. Some emphysematous change may be present. No enlarged mediastinal or hilar adenopathy is evident. The ascending aorta diameter at the level o f the main pulmonary artery is 3.1 cm. The main pulmonary artery diameter at the bifurcation is 2.9 cm. Moderate coronary artery calcifications present. Limited CT sections are obtained through the upper abdomen. Abdomen is essentially unremarkable. IMPRESSION: 1. No acute pulmonary process radiographically apparent. 2. Some underlying pulmonary fibrosis and/or emphysematous change appears to be present [facility], , 10/17/2024 6:07 PM
== END | disposition home or self-care (01) ==
LOC: RADCTMAIN 08:15
PROVIDERS: ATTEND Internal Medicine Critical Care Medicine
DX: J84.89 Other specified interstitial pulmonary diseases (principal)
CPT/HCPCS: 71250